=== PATIENT | female | born 1960 | race Caucasian/White ===

== ENCOUNTER 2021-03-06 11:08 | Emergency (ER) | payer MEDICARE, MEDICAID, SELFPAY ==
[2021-03-06 11:43] VITALS: BP 112/71; BP 130/60; PULSE 58; PULSE 62; RESP 16; TEMP 36.6; O2SAT 98; O2SAT 99; BMI 22.4
--- NOTE | 2021-03-06 12:46 | ED.SEIZURE ---
HPI - Seizure General Chief Complaint: Seizure Stated Complaint: SZ POST ICTAL FROM SNF Time Seen by Provider: 03/06/21 12:26 Source: patient, EMS and RN notes reviewed History of Present Illness HPI Narrative: Patient with a history of seizure disorder. She is currently on Keppra and gabapentin for this. She is currently residing and [facility] after recent hospitalization at [facility] or renal failure. She denies history of dialysis however. She states today she had a seizure which is similar to her prior seizure disorders. She states she typically has prolonged seizures from 10 minutes up to 60 minutes. Today she bit her tongue was incontinent of urine. Today seizure resolved after receiving Ativan and mom really followed by [facility] by EMS. She currently complains of headache, mild time pain, general body aches. She states this is the way she typically feels after seizure. She denies any other significant injury. She states she felt a seizure coming on admitted back to her bed with the rails up prior to the full tonic-clonic seizure starting. She does not remember the actual seizure. No other new complaints. She states she used to be on Depakote but they changed to Keppra during her recent hospitalization. Her last seizure was 2 weeks ago. She states she typically has 1-2 seizures per month Related Data Allergies Allergy/AdvReac Type Severity Reaction Status Date / Time acetaminophen [ACETAMINOPHEN] Allergy Unknown VOMIT Unverified 12/01/19 18:47 bupropion [From WELLBUTRIN] Allergy Unknown HALLUCINATI Unverified 12/01/19 18:47 ONS codeine [CODEINE] Allergy Unknown RASH Unverified 12/01/19 18:47 metronidazole [METRONIDAZOLE] Allergy Unknown UNKNOWN Unverified 12/01/19 18:47 oxycodone [OXYCODONE] Allergy Unknown RASH Unverified 12/01/19 18:47 sulfamethoxazole Allergy Unknown UNKNOWN Unverified 12/01/19 18:47 [SULFAMETHOXAZOLE] tramadol [TRAMADOL] Allergy Unknown UNKNOWN Unverified 12/01/19 18:47 Review of Systems Constitutional: Comments: No fevers or chills ENT: Comments: Headache typical for post seizure per patient. Positive tongue biting Cardiovascular: Comments: No chest pain Respiratory: Comments: No shortness of breath Gastrointestinal: Comments: Some nausea. No abdominal pain or vomiting Musculoskeletal: Comments: General muscle aches without focal injury per patient Integumentary/Breasts: Comments: No rash Neurologic: Comments: Seizure as mentioned [facility] Social History Social History Alcohol intake: never Patient Tobacco Use Status: Former Tobacco user Smoked in Last 30 Days: Yes Use of substances other than those prescribed or required for medical reasons: No Advance Directives: No Advance Directives Information Provided: No Physical Exam Vital Signs: Vital Signs: Last Vital Signs Temp 97.7 F 03/06/21 14:36 Pulse 50 03/06/21 14:36 Resp 16 03/06/21 14:36 BP 158/73 H 03/06/21 14:36 Pulse Ox 98 03/06/21 14:36 BMI result Body Mass Index 22.4 Const: Other: Awake and alert no acute distress. HENMT: Other: Abrasion right side of tongue. No significant laceration. No active bleeding. Normocephalic atraumatic otherwise Eyes: Other: Pupils equal round reactive to light. Extraocular muscles intact Neck: Other: No meningismus Resp: Other: Clear and equal bilaterally without wheezes rales or rhonchi Cardio: Other: Regular rate and rhythm without murmurs rubs or gallops GI: Other: Soft nontender nondistended normoactive bowel sounds Skin: Other: Warm pink and dry without rash Neuro: Other: Awake alert no acute distress. Nonfocal neuro exam Extrem: Other: No evidence of extremity injury Course Course Course Narrative: Patient with history of epilepsy with seizure today consistent with prior seizures. No evidence of status epilepticus. No evidence of significant injury. I do not think we need to do imaging today. She does have a recent history of renal failure. Will obtain labs and electrolytes and Keppra level. 4:57 p.m.. Patient is feeling better and has not had further seizure activity while here in the emergency department. Labs including electrolytes are unremarkable. Keppra level is still pending but will not impact care today. Stable for discharge home MDM - Seizure Lab Data Result diagrams: 03/06/21 15:16 03/06/21 15:16 Labs: Lab Results 03/06/21 03/06/21 Range/Units 15:16 15:16 WBC 7.5 (4.8-10.8) X10*3/uL RBC 3.28 L (4.20-5.50) X10*6/uL Hgb 10.6 L (12.0-16.0) g/dl Hct 31.0 L (37.0-47.0) % MCV 94.5 (80.0-98.0) fL MCH 32.3 (27.0-33.0) pg MCHC 34.2 (31.0-35.0) g/dl RDW 14.4 (11.0-16.0) % Plt Count TNP MPV Not Reportable Immature Gran % (Auto) 0.7 H (0.0-0.4) % Neut % (Auto) 43.6 L (45-73) % Lymph % (Auto) 40.9 H (20-40) % [place] % (Auto) 9.9 (2-11) % Eos % (Auto) 3.8 (0-4) % Baso % (Auto) 1.1 (0-2) % Lymph # (Auto) 3.1 (1.2-4.9) X10*3/uL [place] # (Auto) 0.7 (0.1-1.2) X10*3/uL Eos # (Auto) 0.3 (0.0-0.4) X10*3/uL Baso # (Auto) 0.1 (0.0-0.2) X10*3/uL Abs Immat Gran (auto) 0.05 H (0.00-0.03) X10*3/uL Absolute Neuts (auto) 3.3 (2.0-8.3) x10*3/uL Absolute Nucleated RBC 0.000 (0.0-0.012) X10*3/uL Nucleated RBC % (auto) 0.0 (0.0-0.2) /100WBC Smear Tech's Comments VERIFIED Sodium 139 (135-145) mmol/L Potassium 4.5 (3.3-5.1) mmol/L Chloride 107 (96-108) mmol/L Carbon Dioxide 26 (22-29) mmol/L Anion Gap 11 L (12-20) BUN 9 (9-16) mg/dL Creatinine 0.68 (0.5-1.4) mg/dL Estim Creat Clear Calc 60.7 Estimated GFR > 60 Random Glucose 73 (60-115) mg/dL Calcium 9.3 (8.4-10.2) mg/dL Total Bilirubin 0.4 (0.0-1.0) mg/dL AST 18 (5-31) U/L ALT 29 (0-31) U/L Alkaline Phosphatase 104 (39-117) U/L Total Creatine Kinase 50 (26-140) U/L Total Protein 6.2 L (6.5-8.0) g/dL Albumin 3.4 L (3.5-5.0) g/dL Discharge Plan Discharge Clinical Impression: Epileptic seizure Patient Disposition: Home, Self-Care Instructions: Epilepsy (ED) Additional Instructions: Your lab work here was normal today. Your Keppra level is still pending however. Follow-up with your neurologist for further recommendations
[2021-03-06] MEDS: 0.9 % Sodium Chloride 500 ML IV (13:39)
[2021-03-06 14:36] VITALS: BP 158/73; PULSE 50; RESP 16; TEMP 36.5; O2SAT 98
[2021-03-06 15:35] LABS: Eosinophils Absolute Auto 0.3 X10*3/uL (0.0-0.4); Hemoglobin 10.6 g/dl (12.0-16.0); PLT CLUMP 1; SCAN SMEAR FLAG 1
[2021-03-06 15:37] LABS: Basophils Absolute Auto 0.1 X10*3/uL (0.0-0.2); Basophils Percent Auto 1.1 % (0-2); Eosinophils Percent Auto 3.8 % (0-4); Imm Gran Abs Auto 0.05 X10*3/uL (0.00-0.03); Imm Gran Pct Auto 0.7 % (0.0-0.4); Lymphocytes Absolute Auto 3.1 X10*3/uL (1.2-4.9); Lymphocytes Percent Auto 40.9 % (20-40); MANUAL DIFF FLAG SCAN; Mean Corpuscular HGB Conc 34.2 g/dl (31.0-35.0); Mean Corpuscular Hemoglobin 32.3 pg (27.0-33.0); Mean Corpuscular Volume 94.5 fL (80.0-98.0); Monocytes Absolute Auto 0.7 X10*3/uL (0.1-1.2); Monocytes Percent Auto 9.9 % (2-11); Neutrophils Absolute Auto 3.3 x10*3/uL (2.0-8.3); Neutrophils Percent Auto 43.6 % (45-73); Red Blood Count 3.28 X10*6/uL (4.20-5.50); Red Cell Distribution Width 14.4 % (11.0-16.0)
[2021-03-06 15:41] LABS: Alanine Aminotransferase 29 U/L (0-31); Albumin Level 3.4 g/dL (3.5-5.0); Alkaline Phosphatase 104 U/L (39-117); Anion Gap 11 (12-20); Aspartate Amino Transferase 18 U/L (5-31); Bilirubin Total 0.4 mg/dL (0.0-1.0); Blood Urea Nitrogen 9 mg/dL (9-16); Calcium 9.3 mg/dL (8.4-10.2); Carbon Dioxide 26 mmol/L (22-29); Chloride 107 mmol/L (96-108); Creatinine Clr Calc Pharmacy 60.7; Estimated Glomerular Filt Rate > 60; Glucose Random 73 mg/dL (60-115); Potassium 4.5 mmol/L (3.3-5.1); Sodium 139 mmol/L (135-145); Total Protein 6.2 g/dL (6.5-8.0)
[2021-03-06 15:57] LABS: White Blood Count 7.5 X10*3/uL (4.8-10.8)
[2021-03-06 16:07] LABS: SLIDE REVIEW VERIFIED
[2021-03-06] MEDS: Ketorolac Tromethamine 30 MG/ML VIAL IVPUSH (17:39)
[2021-03-12 08:31] LABS: Levetiracetam Keppra 20.7 mcg/mL (12.0-46.0)
== END 2021-03-06 20:54 | disposition home or self-care (01) ==
PROVIDERS: Emergency Provider Emergency Medicine
DX: G40.909 Epilepsy, unspecified, not intractable, without status epilepticus (principal); Z87.891 Personal history of nicotine dependence; Z79.899 Other long term (current) drug therapy
CPT/HCPCS: 36415; 80053; 80177; 82550; 85025; 96361; 96374; 99284; J1885

== ENCOUNTER 2021-03-14 16:08 | Emergency (ER) | payer MEDICARE, MEDICAID, SELFPAY ==
--- NOTE | ~2021-03-14 | XR_ITS ---
EXAMINATION: XR CHEST CLINICAL INFORMATION: Seizure COMPARISON: None TECHNIQUE: Portable upright AP view of the chest was obtained. FINDINGS: The lungs are clear. There is no pneumothorax, airspace consolidation or groundglass opacity. No effusion. Heart size normal. Vascularity normal. The hilar and mediastinal contours and visualized bony structures are unremarkable. XR/XR chest 1V IMPRESSION: Unremarkable examination.
[2021-03-14 16:23] VITALS: BP 141/60; PULSE 92; RESP 14; O2SAT 97; BMI 19.5
--- NOTE | 2021-03-14 16:29 | ED.SEIZURE ---
HPI - Seizure General Chief Complaint: Seizure Stated Complaint: SEIZURE PER SNF Source: patient and EMS Mode of arrival: EMS Limitations: no limitations History of Present Illness HPI Narrative: 61-year-old female presents via EMS from a nursing home facility for seizure lasting 25 minutes. MD complaint: seizure Onset (ago): hour(s) Description of Episode: tonic-clonic movement and post-event confusion Duration of episode: 25 -: minutes(s) Witnessed: Yes - by Bystander Trauma: No Seizure [facility] Possible Precipitating Event: none Associated symptoms: denies other symptoms Treatments prior to arrival: benzodiazepines Related Data Previous Rx's Medication Instructions Recorded cefuroxime axetil 500 mg tablet 500 mg PO Q12H 7 Days #14 tab 03/14/21 Allergies Allergy/AdvReac Type Severity Reaction Status Date / Time acetaminophen [ACETAMINOPHEN] Allergy Unknown VOMIT Verified 03/06/21 18:55 bupropion [From WELLBUTRIN] Allergy Unknown HALLUCINATI Verified 03/06/21 18:55 ONS codeine [CODEINE] Allergy Unknown RASH Verified 03/06/21 18:55 metronidazole [METRONIDAZOLE] Allergy Unknown UNKNOWN Verified 03/06/21 18:55 oxycodone [OXYCODONE] Allergy Unknown RASH Verified 03/06/21 18:55 sulfamethoxazole Allergy Unknown UNKNOWN Verified 03/06/21 18:55 [SULFAMETHOXAZOLE] tramadol [TRAMADOL] Allergy Unknown UNKNOWN Verified 03/06/21 18:55 Review of Systems Review of Systems: Constitutional: Positive fatigue, No Fever, No Chills ENT/Mouth: No sore throat, No Rhinorrhea Eyes: No Eye Pain, No Swelling, No Redness Cardiovascular: No Chest Pain, No SOB Respiratory: No Cough, No Sputum Gastrointestinal: No Nausea, No Vomiting, No Diarrhea, No abdominal Pain Genitourinary: No Dysuria, No Hematuria Musculoskeletal: No joint pain, No Myalgias, No Joint Swelling Skin: No Skin Lesions, No rash Neuro: No Weakness, No Numbness, No Loss of Consciousness, No Dizziness, No Headache Psych: No Anxiety, No Depression, No SI/HI/AH/VH Heme/Lymph: No Bruising, No Bleeding,No Lymphadenopathy Endocrine: No Polyuria, No Polydipsia Yes all other systems are reviewed and are negative PMFSH Past Medical History Attestation statement: The following information was validated with the patient. Source: old records reviewed Social History Social History Alcohol intake: never Patient Tobacco Use Status: Former Tobacco user Use of substances other than those prescribed or required for medical reasons: No Advance Directives: No Advance Directives Information Provided: No Patient : No Physical Exam Vital Signs: Vital Signs: Last Vital Signs Temp 98.3 F 03/14/21 16:56 Pulse 66 03/14/21 19:58 Resp 16 03/14/21 16:56 BP 128/71 03/14/21 19:58 Pulse Ox 98 03/14/21 19:58 BMI result Body Mass Index 19.5 Appearance: Alert. Oriented X3. No acute distress. Appears tired. Eyes: Pupils equal, round and reactive to light. EOMI. Sclera nonicteric. ENT: Pharynx normal. Moist mucous membranes. No injury tongue or buccal mucosa Neck: Normal inspection. Neck supple. No nuchal rigidity. CVS: Normal heart rate and rhythm. Pulses normal. Respiratory: No respiratory distress. Breath sounds normal. Abdomen: Soft and nontender. Skin: Skin warm and dry. Normal skin color. Normal skin turgor. Extremities: No lower extremity edema. Moves all extremities against resistance. Neuro: No motor deficit. No sensory deficit. Cranial nerves 2-12 intact. Course Course Course Narrative: 61-year-old female from a [facility] presents via EMS for seizure lasting approximately 25 minutes. Patient was given Ativan by EMS, when patient stated to EMS that she was having a seizure. At this time there is no evidence of status epilepticus. No evidence of injury. Physical exam is within normal limits. Lab values and urinalysis pending. Patient does have a history presenting for seizure disorder, last presentation was 03/06/2021. She is on Keppra, however I do not feel that obtaining Keppra lab values will be beneficial at this time as this lab is a send out. 6:11 p.m. patient is requesting p.o. fluids and food. Patient is able to speak in complete sentences, no indication of adverse from seizure. Urinalysis indicates leukocyte esterase. Will treat with cefuroxime 500 mg twice a day for the next 7 days. Patient will be discharged to nursing home facility. Patient is eating and drinking without difficulty. MDM - Seizure MDM Narrative Medical decision making narrative: UTI Differential Diagnosis Differential diagnosis: Likely generalized seizure and epileptic seizure Medical Records Attestation: I reviewed the patient's medical records. Lab Data Attestation: I reviewed the patient's lab results. Result diagrams: 03/14/21 16:46 03/14/21 16:46 Labs: Lab Results 03/14/21 03/14/21 03/14/21 Range/Units 16:46 16:46 17:02 WBC 7.9 (4.8-10.8) X10*3/uL RBC 3.54 L (4.20-5.50) X10*6/uL Hgb 11.5 L (12.0-16.0) g/dl Hct 33.9 L (37.0-47.0) % MCV 95.8 (80.0-98.0) fL MCH 32.5 (27.0-33.0) pg MCHC 33.9 (31.0-35.0) g/dl RDW 13.7 (11.0-16.0) % Plt Count TNP MPV Not Reportable Immature Gran % (Auto) 0.6 H (0.0-0.4) % Neut % (Auto) 48.9 (45-73) % Lymph % (Auto) 35.2 (20-40) % [place] % (Auto) 11.4 H (2-11) % Eos % (Auto) 2.8 (0-4) % Baso % (Auto) 1.1 (0-2) % Lymph # (Auto) 2.8 (1.2-4.9) X10*3/uL [place] # (Auto) 0.9 (0.1-1.2) X10*3/uL Eos # (Auto) 0.2 (0.0-0.4) X10*3/uL Baso # (Auto) 0.1 (0.0-0.2) X10*3/uL Abs Immat Gran (auto) 0.05 H (0.00-0.03) X10*3/uL Absolute Neuts (auto) 3.8 (2.0-8.3) x10*3/uL Absolute Nucleated RBC 0.000 (0.0-0.012) X10*3/uL Nucleated RBC % (auto) 0.0 (0.0-0.2) /100WBC Smear Tech's Comments VERIFIED Sodium 137 (135-145) mmol/L Potassium 4.9 (3.3-5.1) mmol/L Chloride 103 (96-108) mmol/L Carbon Dioxide 29 (22-29) mmol/L Anion Gap 10 L (12-20) BUN 21 H D (9-16) mg/dL Creatinine 0.78 (0.5-1.4) mg/dL Estim Creat Clear Calc 55.6 Estimated GFR > 60 Random Glucose 95 (60-115) mg/dL Calcium 9.3 (8.4-10.2) mg/dL Urine Color YELLOW Urine Appearance CLEAR Urine pH 7.0 (5.0-8.0) Ur Specific [place] <= 1.005 (1.005-1.025) Urine Protein NEG (NEG-TRACE) MG/DL Urine Glucose (UA) NEG (NEG) MG/DL Urine Ketones NEG (NEG) MG/DL Urine Blood NEG (NEG) Urine Nitrite NEG (NEG) Ur Leukocyte Esterase 1+ H (NEG) Urine RBC 0-2 (0) /HPF Urine WBC 0-2 (0-4) /HPF Ur Squamous Epith Cells TRACE /LPF Ur Renal Epithelial Cell 1+ /LPF Urine Bacteria NONE /LPF Imaging Data Chest x-ray: Attestation: I personally reviewed and interpreted this imaging study as follows: Radiologist's impression: EXAMINATION: XR CHEST CLINICAL INFORMATION: Seizure COMPARISON: None TECHNIQUE: Portable upright AP view of the chest was obtained. FINDINGS: The lungs are clear. There is no pneumothorax, airspace consolidation or groundglass opacity. No effusion. Heart size normal. Vascularity normal. The hilar and mediastinal contours and visualized bony structures are unremarkable. XR/XR chest 1V IMPRESSION: Unremarkable examination. ? Discharge Plan Discharge Clinical Impression: Epileptic seizure, UTI (urinary tract infection) Patient Disposition: Xfer [facility] Transfer Details: BACK TO [facility] WITH [facility] Instructions: Recurrent Seizures in Adults (ED), Urinary Tract Infection in Older Adults (ED) Additional Instructions: You were evaluated for seizure. Please continue to take all medications as prescribed. Urinalysis indicates UTI. Please take cefuroxime 500 mg twice a day for the next 7 days. Please repeat urinalysis in 10 days. Thank you for choosing this emergency department for evaluation. Please follow-up with primary care physician as needed. Return to the emergency department for any new, concerning, or worsening symptoms. Prescriptions: New cefuroxime axetil 500 mg tablet 500 mg PO Q12H 7 Days Qty: 14 RF: 0 Interventions: ED Discharge Assessment Last Done: 03/14/21 20:11 Discharge Date/Time: 03/14/21 20:12
[2021-03-14 16:51] LABS: PLT CLUMP 1; SCAN SMEAR FLAG 1
[2021-03-14 16:56] VITALS: BP 123/77; PULSE 60; RESP 16; TEMP 36.8; O2SAT 98
[2021-03-14 16:57] LABS: Basophils Absolute Auto 0.1 X10*3/uL (0.0-0.2); Basophils Percent Auto 1.1 % (0-2); Hemoglobin 11.5 g/dl (12.0-16.0); Mean Corpuscular Volume 95.8 fL (80.0-98.0); Monocytes Percent Auto 11.4 % (2-11); Red Cell Distribution Width 13.7 % (11.0-16.0)
[2021-03-14 16:59] LABS: Eosinophils Absolute Auto 0.2 X10*3/uL (0.0-0.4); Eosinophils Percent Auto 2.8 % (0-4); Hematocrit 33.9 % (37.0-47.0); Imm Gran Abs Auto 0.05 X10*3/uL (0.00-0.03); Imm Gran Pct Auto 0.6 % (0.0-0.4); Lymphocytes Absolute Auto 2.8 X10*3/uL (1.2-4.9); Lymphocytes Percent Auto 35.2 % (20-40); MANUAL DIFF FLAG SCAN; Mean Corpuscular HGB Conc 33.9 g/dl (31.0-35.0); Mean Corpuscular Hemoglobin 32.5 pg (27.0-33.0); Monocytes Absolute Auto 0.9 X10*3/uL (0.1-1.2); Neutrophils Absolute Auto 3.8 x10*3/uL (2.0-8.3); Neutrophils Percent Auto 48.9 % (45-73); Red Blood Count 3.54 X10*6/uL (4.20-5.50)
[2021-03-14 17:11] LABS: Appearance Urine CLEAR; Color Urine YELLOW; Glucose Urine UA NEG (NEG); Leukocyte Esterase Urine 1+ (NEG); Nitrite Urine NEG (NEG); Specific Gravity - Urine <= 1.005 (1.005-1.025); UACC Culture Trigger YES; Urine Blood NEG (NEG); Urine Ketones NEG (NEG); Urine Protein NEG (NEG-TRACE)
[2021-03-14 17:15] LABS: Anion Gap 10 (12-20); Blood Urea Nitrogen 21 mg/dL (9-16); Calcium 9.3 mg/dL (8.4-10.2); Carbon Dioxide 29 mmol/L (22-29); Chloride 103 mmol/L (96-108); Creatinine Clr Calc Pharmacy 55.6; Estimated Glomerular Filt Rate > 60; Glucose Random 95 mg/dL (60-115); Potassium 4.9 mmol/L (3.3-5.1); Sodium 137 mmol/L (135-145); White Blood Count 7.9 X10*3/uL (4.8-10.8)
[2021-03-14 17:16] LABS: SLIDE REVIEW VERIFIED
[2021-03-14 18:27] LABS: RBC Urine 0-2 /HPF (0); Renal Epithelial Cells Urine 1+ /LPF; Squamous Epithelial Cell Urine TRACE /LPF; WBC Urine 0-2 /HPF (0-4)
[2021-03-14 19:58] VITALS: BP 128/71; PULSE 66; O2SAT 98
--- NOTE | 2021-03-14 20:08 | PC.NURSE ---
Called facility several time in attempt to give report, was transferred the first time no answer on hold for over 5mins. Report give on second call.
== END 2021-03-14 20:12 | disposition skilled nursing facility (03) ==
PROVIDERS: Nurse Practitioner Family; Emergency Provider Emergency Medicine Emergency Medical Services
DX: G40.909 Epilepsy, unspecified, not intractable, without status epilepticus (principal); N39.0 Urinary tract infection, site not specified; Z87.891 Personal history of nicotine dependence; Z79.899 Other long term (current) drug therapy
CPT/HCPCS: 36415; 71045; 80048; 81001; 85025; 87086; 99284

== ENCOUNTER 2021-03-30 12:45 | Emergency (ER) | payer OTHER, MEDICAID, SELFPAY ==
--- NOTE | ~2021-03-30 | CT_ITS ---
EXAMINATION: CT HEAD WITHOUT CONTRAST CLINICAL INFORMATION: Headache and seizure. COMPARISON: None TECHNIQUE: Contiguous axial imaging was performed from the skull base to vertex without intravenous administration of contrast. This CT examination was performed using dose optimization techniques as appropriate, variously including the following: *Automated exposure control *Adjustment of mA and/or kV according to patient size (this includes techniques or standardized protocols for targeted exams where dose is matched to indication/reason for exam; i.e. extremities or head) *Use of iterative reconstruction technique DLP: 634 mGy-cm FINDINGS: There is no acute intra-axial, extra-axial bleed, masses or midline shift. There is no acute infarction evolution. No edema. No abnormal mass effect or midline shift is seen. Smalls to white matter differentiation is well preserved. No extra-axial fluid collections are identified. The ventricles are normal in size. There is no abnormal attenuation within the brain parenchyma. The osseous structures and soft tissues are normal. There is right maxillary sinus air-fluid level. There is mucoperiosteal thickening left frontal sinus. CT/CT head/brain wo con IMPRESSION: No acute intracranial process seen. Acute right maxillary sinusitis. Chronic left frontal sinus inflammatory changes.
--- NOTE | 2021-03-30 12:51 | ED.GENADULT ---
HPI - General Adult General Chief complaint: Seizure Stated complaint: SZ ACTIVITY FROM SNF PER EMS Time Seen by Provider: 03/30/21 12:50 Source: patient and EMS Mode of arrival: EMS Limitations: no limitations History of Present Illness HPI narrative: 61-year-old female coming from a care home facility who has a history of seizures, was called due to staff having concern for patient having seizure. Patient was given 0.5 IM Ativan by nursing staff. Patient has had mild shaking of her upper arms, when EMS told her to stop, she stopped shaking. Staff at [facility] state that 2 weeks ago patient had another seizure. Patient is alert and oriented at this time, she knows her name, where she is, and what day it is. States she has a headache. States she started shaking uncontrollably with her teeth chattering inner arm shaking. Denies urinary or bowel incontinence, denies tongue or cheek biting. On review of systems, patient states that she has had 3 days of dysuria and urinary frequency ' I did call [facility] and spoke with staff, who say that patient had a headache and was given 0.5 IM Ativan, then started with seizure-like activity at 11:45 a.m., and after she had shaking of her arms she was unresponsive for about 15 minutes, so they called EMS. Patient does not normally have tremors and shaking of her upper arms at baseline Related Data Previous Rx's Medication Instructions Recorded cefuroxime axetil 500 mg tablet 500 mg PO Q12H 7 Days #14 tab 03/14/21 doxycycline hyclate 100 mg capsule 100 mg PO BID 10 Days #20 cap 03/30/21 Allergies Allergy/AdvReac Type Severity Reaction Status Date / Time acetaminophen [ACETAMINOPHEN] Allergy Unknown VOMIT Verified 03/06/21 18:55 bupropion [From WELLBUTRIN] Allergy Unknown HALLUCINATI Verified 03/06/21 18:55 ONS codeine [CODEINE] Allergy Unknown RASH Verified 03/06/21 18:55 metronidazole [METRONIDAZOLE] Allergy Unknown UNKNOWN Verified 03/06/21 18:55 oxycodone [OXYCODONE] Allergy Unknown RASH Verified 03/06/21 18:55 sulfamethoxazole Allergy Unknown UNKNOWN Verified 03/06/21 18:55 [SULFAMETHOXAZOLE] tramadol [TRAMADOL] Allergy Unknown UNKNOWN Verified 03/06/21 18:55 Review of Systems Constitutional: Constitutional: Denies body ache(s), Denies chills, Denies fatigue, Denies fever(s), Reports headache(s), Denies malaise and Denies weakness Eyes: Eyes: Denies diplopia and Denies loss of vision ENT: Denies dizziness, Denies otalgia, Reports headache(s), Denies post nasal drip and Denies sore throat Cardiovascular: Cardiovascular: Denies chest pain, Denies syncope, Denies leg edema, Denies lightheadedness, Denies Loss of Consciousness, Denies palpitations and Denies dyspnea Respiratory: Respiratory: Denies chest congestion, Denies cough and Denies dyspnea Gastrointestinal: Gastrointestinal: Denies abdominal pain, Denies hematochezia, Denies constipation, Denies diarrhea, Denies nausea and Denies vomiting Genitourinary: Genitourinary: Denies hematuria, Reports dysuria, Denies pelvic pain, Reports urinary urgency and Denies vaginal discharge Musculoskeletal: Musculoskeletal: Reports myalgias Neurologic: Reports Abnormal speech present, Denies confusion, Denies dizziness, Denies syncope, Reports headache(s), Denies focal weakness, Denies loss of vision, Reports seizure-like activity, Denies Sensory deficit (Neuro) and Denies weakness Psychiatric: Psychiatric: Denies anxiety, Denies confusion and Denies depression Endocrine: Endocrine: Denies fatigue and Denies palpitations [facility] Past Medical History [facility] Narrative: Medical history includes epilepsy, acute kidney injury, COPD, asthma, anemia, muscle wasting, malnutrition, depression anxiety, dysphagia, GERD Surgical History S/P bilateral foot surgery Social History Social History Alcohol intake: never Patient Tobacco Use Status: Former Tobacco user Advance Directives: No Advance Directives Information Provided: Yes Physical Exam Vital Signs: Vital Signs: Last Vital Signs Temp 98.4 F 03/30/21 16:10 Pulse 82 03/30/21 16:10 Resp 16 03/30/21 16:10 BP 126/76 03/30/21 16:10 Pulse Ox 99 03/30/21 16:10 BMI result Body Mass Index 24.5 Const: General: alert and awake; No confusion Nutritional Appearance: cachectic Orientation/consciousness: patient oriented x3 and No confusion Limitations: no limitations and No altered mental status HENMT: Head: Yes normal to inspection, Yes normocephalic and Yes atraumatic Ears: hearing grossly normal bilaterally, external ears normal, TM's normal bilaterally and EAC's normal General nose exam: Normal external nose present Face and sinus: Yes normal facial exam and Yes sinuses nontender Mouth: Normal oral and palatal mucosa present Throat: Yes posterior oropharynx normal Eyes: Conjunctivae: conjunctivae normal Pupils: Equal, round and reactive pupils present EOM: EOMs intact bilaterally Neck: Neck: Yes full ROM, Yes no lymphadenopathy and Yes supple Resp: Effort & Inspection: normal respiratory effort and able to speak in complete sentences Auscultation: clear to auscultation bilaterally, no crackles, no rales, no rhonchi and no wheezes Cardio: Rate: regular rate Rhythm: regular rhythm Heart sounds: S1 normal heart sound present and S2 normal heart sound present GI: Inspection: Yes normal to inspection Palpation (GI): Soft to palpation, Tenderness to palpation present (GI) (suprapubic), no guarding and not rigid Percussion: Yes normal to percussion Auscultation: normal bowel sounds : General: Yes CVA tenderness on the left Back/Spine/Pelvis: Back: CVA tenderness Skin: General skin exam: no rashes or lesions noted Neuro: General: patient oriented x3 and No confusion Cranial nerves: Yes CN's II-XII intact bilaterally, Yes Facial sensation intact/muscles of mastication intact, Yes Equal, round and reactive pupils present, Yes Normal accommodation reflex present, Yes Bilaterally intact EOM present, Yes Nystagmus not present, Yes Normal facial strength present, Yes Ability to bilaterally rotate head present and Yes Ability to bilaterally elevate shoulders present Cognition (Neuro): normal cognition Speech: Abnormal speech present Gait exam (Neuro): Normal gait present Motor exam (neuro): 5/5 motor strength present throughout and Pronator motor function not present Sensory Exam: No Sensory deficit (Neuro) Deep tendon reflexes (DTR's): Right patellar reflex intensity grade: 1+ and Left patellar reflex intensity grade: 1+ Romberg Test: Negative Pupils: Normal pupillary reactivity/response: bilateral Extrem: General: Yes normal to inspection and Yes full ROM Psych: Appearance: grossly normal Mental Status: mental status grossly normal Speech and movement: Normal speech and movement present Affect: normal affect Attitude: cooperative Course Course Course Narrative: 61-year-old female who is afebrile with stable vitals presents for seizure-like activity from her care home home. Staff there states patient had shaking and seizure-like activity, followed by about 15 minutes of unresponsiveness. On exam, patient is stable vitals, has shaking of her upper arms, but is able to follow commands, is alert and oriented x3, and has a benign neurological exam. Will get urine, Keppra level, labs, COVID, head CT. Reevaluation(s) Reevaluation #1: Under exam, patient is sleeping comfortably, her shaking has stopped POC BG 94 Will give 500 keppra IV, as pt got Keppra dose this am Patient able to ambulate to bathroom Reevaluation #2: CT/CT head/brain wo con IMPRESSION: No acute intracranial process seen. ? Acute right maxillary sinusitis. Chronic left frontal sinus inflammatory changes. Patient has a negative urine, COVID negative, CBC is unremarkable, blood glucose point of care is 94, EKG shows no acute ischemia, head CT shows sinusitis. Awaiting chemistry; called lab; they said CMP was hemolyzed, and needs a re-draw chemistry within normal limits Will treat with Doxy, and discharge back to SNF Medical Decision Making Lab Data Result diagrams: 03/30/21 13:17 03/30/21 15:01 Labs: Lab Results 03/30/21 03/30/21 03/30/21 Range/Units 13:13 13:17 13:17 WBC 9.0 (4.8-10.8) X10*3/uL RBC 3.74 L (4.20-5.50) X10*6/uL Hgb 11.9 L (12.0-16.0) g/dl Hct 35.9 L (37.0-47.0) % MCV 96.0 (80.0-98.0) fL MCH 31.8 (27.0-33.0) pg MCHC 33.1 (31.0-35.0) g/dl RDW 12.7 (11.0-16.0) % Plt Count TNP MPV TNP Immature Gran % (Auto) 0.8 H (0.0-0.4) % Neut % (Auto) 52.4 (45-73) % Lymph % (Auto) 30.5 (20-40) % Mcminn % (Auto) 13.5 H (2-11) % Eos % (Auto) 1.9 (0-4) % Baso % (Auto) 0.9 (0-2) % Lymph # (Auto) 2.8 (1.2-4.9) X10*3/uL Mcminn # (Auto) 1.2 (0.1-1.2) X10*3/uL Eos # (Auto) 0.2 (0.0-0.4) X10*3/uL Baso # (Auto) 0.1 (0.0-0.2) X10*3/uL Abs Immat Gran (auto) 0.07 H (0.00-0.03) X10*3/uL Absolute Neuts (auto) 4.7 (2.0-8.3) x10*3/uL Absolute Nucleated RBC 0.000 (0.0-0.012) X10*3/uL Nucleated RBC % (auto) 0.0 (0.0-0.2) /100WBC Smear Tech's Comments VERIFIED Sodium (135-145) mmol/L Potassium (3.3-5.1) mmol/L Chloride (96-108) mmol/L Carbon Dioxide (22-29) mmol/L Anion Gap (12-20) BUN (9-16) mg/dL Creatinine (0.5-1.4) mg/dL Estim Creat Clear Calc Estimated GFR POC Glucose 94 (60-115) mg/dL Random Glucose (60-115) mg/dL Calcium (8.4-10.2) mg/dL Total Bilirubin (0.0-1.0) mg/dL AST (5-31) U/L ALT (0-31) U/L Alkaline Phosphatase (39-117) U/L Total Protein (6.5-8.0) g/dL Albumin (3.5-5.0) g/dL Urine Color Urine Appearance Urine pH (5.0-8.0) Ur Specific Sargent (1.005-1.025) Urine Protein (NEG-TRACE) MG/DL Urine Glucose (UA) (NEG) MG/DL Urine Ketones (NEG) MG/DL Urine Blood (NEG) Urine Nitrite (NEG) Ur Leukocyte Esterase (NEG) Urine RBC (0) /HPF Urine WBC (0-4) /HPF Ur Squamous Epith Cells /LPF Urine Bacteria /LPF COVID-19 (EMILI) Negative (Negative) COVID-19 Clin Com See Note 03/30/21 03/30/21 Range/Units 13:55 15:01 WBC (4.8-10.8) X10*3/uL RBC (4.20-5.50) X10*6/uL Hgb (12.0-16.0) g/dl Hct (37.0-47.0) % MCV (80.0-98.0) fL MCH (27.0-33.0) pg MCHC (31.0-35.0) g/dl RDW (11.0-16.0) % Plt Count MPV Immature Gran % (Auto) (0.0-0.4) % Neut % (Auto) (45-73) % Lymph % (Auto) (20-40) % Mcminn % (Auto) (2-11) % Eos % (Auto) (0-4) % Baso % (Auto) (0-2) % Lymph # (Auto) (1.2-4.9) X10*3/uL Mcminn # (Auto) (0.1-1.2) X10*3/uL Eos # (Auto) (0.0-0.4) X10*3/uL Baso # (Auto) (0.0-0.2) X10*3/uL Abs Immat Gran (auto) (0.00-0.03) X10*3/uL Absolute Neuts (auto) (2.0-8.3) x10*3/uL Absolute Nucleated RBC (0.0-0.012) X10*3/uL Nucleated RBC % (auto) (0.0-0.2) /100WBC Smear Tech's Comments Sodium 139 (135-145) mmol/L Potassium 4.3 (3.3-5.1) mmol/L Chloride 105 (96-108) mmol/L Carbon Dioxide 25 (22-29) mmol/L Anion Gap 13 (12-20) BUN 18 H (9-16) mg/dL Creatinine 0.75 (0.5-1.4) mg/dL Estim Creat Clear Calc 61.1 Estimated GFR > 60 POC Glucose (60-115) mg/dL Random Glucose 96 (60-115) mg/dL Calcium 9.1 (8.4-10.2) mg/dL Total Bilirubin 0.2 (0.0-1.0) mg/dL AST 15 (5-31) U/L ALT 14 (0-31) U/L Alkaline Phosphatase 100 (39-117) U/L Total Protein 6.1 L (6.5-8.0) g/dL Albumin 3.4 L (3.5-5.0) g/dL Urine Color YELLOW Urine Appearance CLEAR Urine pH 6.5 (5.0-8.0) Ur Specific Sargent <= 1.005 (1.005-1.025) Urine Protein NEG (NEG-TRACE) MG/DL Urine Glucose (UA) NEG (NEG) MG/DL Urine Ketones NEG (NEG) MG/DL Urine Blood NEG (NEG) Urine Nitrite NEG (NEG) Ur Leukocyte Esterase NEG (NEG) Urine RBC 0 (0) /HPF Urine WBC 0 (0-4) /HPF Ur Squamous Epith Cells TRACE /LPF Urine Bacteria NONE /LPF COVID-19 (EMILI) (Negative) COVID-19 Clin Com ECG Data Interpretation: Sinus bradycardia at a rate of 59, SC 132, QRS 88, QTC 433, normal axis, no ST elevation or depression, T-wave inversion V3 V4, T-wave inversion lead 3 No old EKG for comparison Discharge Plan Discharge Clinical Impression: Acute bacterial sinusitis Epileptic seizure Qualifiers: Epilepsy type: epileptic spasms Intractability: not intractable Status epilepticus: without status epilepticus Qualified Code(s): G40.822 - Epileptic spasms, not intractable, without status epilepticus Patient Disposition: Home, Self-Care Instructions: Sinusitis (ED), Epilepsy in Older Adults (ED) Additional Instructions: You have a sinus infection. I have prescribed doxycycline to your pharmacy. Please take it IR twice a day for the next 10 days. You had a seizure. All of your labs and your head CT and your EKG were within normal limits. Your Keppra level was sent out, and those results will return in the next 2-3 days. If you do not receive a call that the level is abnormal, continue with your regular medications. If you have more seizure-like activity, chest pain, shortness of breath, abdominal pain, fevers, or any other new or concerning symptoms, please return to emergency Prescriptions: New doxycycline hyclate 100 mg capsule 100 mg PO BID 10 Days Qty: 20 RF: 0 No Action cefuroxime axetil 500 mg tablet 500 mg PO Q12H 7 Days Qty: 14 RF: 0
[2021-03-30 12:57] VITALS: BP 132/79; PULSE 66; RESP 16; TEMP 36.2; O2SAT 99; BMI 24.5
[2021-03-30 13:17] LABS: Glucose, Whole Blood 94 mg/dL (60-115)
--- NOTE | 2021-03-30 13:25 | ECG_ITS ---
Test Reason : seizure Blood Pressure : / mmHG Vent. Rate : 059 BPM Atrial Rate : 059 BPM P-R Int : 132 ms QRS Dur : 088 ms QT Int : 438 ms P-R-T Axes : 063 071 -08 degrees QTc Int : 433 ms Sinus bradycardia Nonspecific T wave abnormality Abnormal ECG No previous ECGs available Referred By: Anastasiia Mariscal Electronically Signed By:ROSAMARIA KNOWLES
[2021-03-30] MEDS: 0.9 % Sodium Chloride 1,000 ML 999 ML IV (13:36)
[2021-03-30 13:50] LABS: Basophils Absolute Auto 0.1 X10*3/uL (0.0-0.2); Basophils Percent Auto 0.9 % (0-2); Eosinophils Absolute Auto 0.2 X10*3/uL (0.0-0.4); Eosinophils Percent Auto 1.9 % (0-4); Hematocrit 35.9 % (37.0-47.0); Hemoglobin 11.9 g/dl (12.0-16.0); Imm Gran Abs Auto 0.07 X10*3/uL (0.00-0.03); Imm Gran Pct Auto 0.8 % (0.0-0.4); Lymphocytes Absolute Auto 2.8 X10*3/uL (1.2-4.9); Lymphocytes Percent Auto 30.5 % (20-40); MANUAL DIFF FLAG SCAN; Mean Corpuscular HGB Conc 33.1 g/dl (31.0-35.0); Mean Corpuscular Hemoglobin 31.8 pg (27.0-33.0); Monocytes Absolute Auto 1.2 X10*3/uL (0.1-1.2); Monocytes Percent Auto 13.5 % (2-11); Neutrophils Absolute Auto 4.7 x10*3/uL (2.0-8.3); Neutrophils Percent Auto 52.4 % (45-73); PLT CLUMP 1; Red Blood Count 3.74 X10*6/uL (4.20-5.50); Red Cell Distribution Width 12.7 % (11.0-16.0); SCAN SMEAR FLAG 1
[2021-03-30 13:55] LABS: COVID-19 Test Negative (Negative)
[2021-03-30 14:16] LABS: SLIDE REVIEW VERIFIED
--- NOTE | 2021-03-30 14:24 | PC.NURSE ---
Pt's daughter Deyanira: [phone]
[2021-03-30 14:27] LABS: Appearance Urine CLEAR; Color Urine YELLOW; Glucose Urine UA NEG (NEG); Leukocyte Esterase Urine NEG (NEG); Nitrite Urine NEG (NEG); PH 6.5 (5.0-8.0); Specific Gravity - Urine <= 1.005 (1.005-1.025); Urine Blood NEG (NEG); Urine Ketones NEG (NEG); Urine Protein NEG (NEG-TRACE)
[2021-03-30 14:44] LABS: RBC Urine 0 /HPF (0); Squamous Epithelial Cell Urine TRACE /LPF; WBC Urine 0 /HPF (0-4)
[2021-03-30] MEDS: levETIRAcetam in NaCl (iso-os) 500 MG/100 ML PIGGYBACK 400 MG IV (14:55)
[2021-03-30 15:51] LABS: Alanine Aminotransferase 14 U/L (0-31); Albumin Level 3.4 g/dL (3.5-5.0); Alkaline Phosphatase 100 U/L (39-117); Anion Gap 13 (12-20); Aspartate Amino Transferase 15 U/L (5-31); Bilirubin Total 0.2 mg/dL (0.0-1.0); Blood Urea Nitrogen 18 mg/dL (9-16); Calcium 9.1 mg/dL (8.4-10.2); Carbon Dioxide 25 mmol/L (22-29); Chloride 105 mmol/L (96-108); Creatinine Clr Calc Pharmacy 61.1; Estimated Glomerular Filt Rate > 60; Glucose Random 96 mg/dL (60-115); Potassium 4.3 mmol/L (3.3-5.1); Sodium 139 mmol/L (135-145); Total Protein 6.1 g/dL (6.5-8.0)
[2021-03-30 16:10] VITALS: BP 126/76; PULSE 82; RESP 16; TEMP 36.9; O2SAT 99
[2021-03-30 17:28] LABS: Glucose, Whole Blood 130 mg/dL (60-115)
--- NOTE | 2021-03-30 17:32 | PC.NURSE ---
Pt D/C from ER. Pending transport back to nursing facility with filler picker time around [id number]. RN will continue to monitor.
--- NOTE | 2021-03-30 18:20 | PC.NURSE ---
Pt received dinner tray at this time, prior to D/C. Still pending EMS transport at this time.
[2021-03-30 19:16] VITALS: BP 130/72; PULSE 64; RESP 16; TEMP 36.6; O2SAT 97
--- NOTE | 2021-03-30 19:16 | PC.NURSE ---
patient ate 100 % of dinner .
[2021-03-30 20:00] VITALS: RESP 18
--- NOTE | 2021-03-30 21:01 | PC.NURSE ---
patient has been a&ox3 and ambulating to bathroom independently, patient is awaiting ride back to facility via ems, will continue to monitor.
[2021-03-30 22:08] VITALS: BP 157/94; PULSE 82; RESP 16; TEMP 36.4; O2SAT 99
--- NOTE | 2021-03-30 22:52 | PC.NURSE ---
MULTIPLE CALLS PLACED TO ACTION FOR UPDATE ON TRANSPORT BACK TO FACILITY. LATEST UPDATE IS BETWEEN .
[2021-03-31] MEDS: cloNIDine HCL 0.2 MG TABLET PO (00:22)
[2021-03-31] MEDS: hydrOXYzine HCL 50 MG TABLET PO (00:22)
[2021-03-31] MEDS: Gabapentin 600 MG TABLET PO (00:23)
[2021-03-31] MEDS: levETIRAcetam 500 MG TABLET PO (00:23)
[2021-04-03 22:57] LABS: Levetiracetam Keppra 23.6 mcg/mL (12.0-46.0)
== END 2021-03-31 01:44 | disposition skilled nursing facility (03) ==
PROVIDERS: Physician Assistant; Emergency Provider Emergency Medicine
DX: J01.80 Other acute sinusitis (principal); G40.822 Epileptic spasms, not intractable, without status epilepticus; Z20.822 Contact with and (suspected) exposure to COVID-19
CPT/HCPCS: 36415; 70450; 80053; 80177; 81001; 82947; 85025; 87635; 93005; 96361; 96365; 99284; J1953

== ENCOUNTER → 2022-01-14 10:55 | Outpatient (BNVA) | payer MEDICARE, MEDICAID, SELFPAY | PROVIDERS: PCP Internal Medicine; Visit Provider Nurse Practitioner Family | DX: R56.9 Unspecified convulsions (principal); G25.0 Essential tremor | CPT/HCPCS: 99212 ==

== ENCOUNTER → 2022-09-15 08:49 | Outpatient (BNVA) | payer MEDICARE, MEDICAID, SELFPAY | PROVIDERS: PCP Internal Medicine; Visit Provider Nurse Practitioner Family | DX: G25.81 Restless legs syndrome (principal); G47.33 Obstructive sleep apnea (adult) (pediatric) | CPT/HCPCS: 99212 ==

== ENCOUNTER → 2022-10-23 08:43 | Outpatient (REF) | payer MEDICARE, MEDICAID, SELFPAY | LOC: HO.SL 08:43 | PROVIDERS: PCP Internal Medicine; Visit Provider Nurse Practitioner Family | DX: G47.33 Obstructive sleep apnea (adult) (pediatric) (principal); G25.81 Restless legs syndrome | CPT/HCPCS: 95806 ==

== ENCOUNTER → 2022-10-23 09:07 | Outpatient (BNV) | payer MEDICARE, MEDICAID, SELFPAY | PROVIDERS: PCP Internal Medicine; Visit Provider Psychiatry & Neurology Neurology | DX: R06.83 Snoring (principal) | CPT/HCPCS: 95806 ==

== ENCOUNTER 2022-11-07 10:50 | Outpatient (AMB) | payer MEDICARE, MEDICAID, SELFPAY ==
--- NOTE | 2022-11-07 11:31 | A.OFFVIS_ITS ---
Intake Vital Signs 11/07/22 11:32 Height 4 ft 11 in Weight 132 lb BMI 26.7 Intake Visit Reasons: f/u appt Intake Note: Patient presents for follow up. Patient states I had a seizure episode Thursday and Thursday, I bit my lip during the seizure . Allergies guaifenesin [From Mucinex] Allergy (Intermediate, Verified 11/07/22 11:35) Vomiting acetaminophen [ACETAMINOPHEN] Allergy (Unknown, Verified 11/07/22 11:35) VOMIT bupropion [From WELLBUTRIN] Allergy (Unknown, Verified 11/07/22 11:35) HALLUCINATIONS codeine [CODEINE] Allergy (Unknown, Verified 11/07/22 11:35) RASH metronidazole [METRONIDAZOLE] Allergy (Unknown, Verified 11/07/22 11:35) UNKNOWN oxycodone [OXYCODONE] Allergy (Unknown, Verified 11/07/22 11:35) RASH sulfamethoxazole [SULFAMETHOXAZOLE] Allergy (Unknown, Verified 11/07/22 11:35) UNKNOWN tramadol [TRAMADOL] Allergy (Unknown, Verified 11/07/22 11:35) UNKNOWN Medication List - Last Reconciled 11/07/22 by SRIDHAR Quinonez apixaban (Eliquis) 5 mg PO BID ascorbic acid (vitamin C) 250 mg PO DAILY 30 days cholecalciferol (vitamin D3) 1 cap PO DAILY clonidine HCl 1 tab PO BEDTIME escitalopram oxalate 1 tab PO DAILY ferrous sulfate 324 mg PO DAILY 30 days [id number]-[id number]-gutjzbkh 200-62.5-25 mcg (Trelegy Ellipta) 1 inh inhalation DAILY gabapentin 600 mg PO BID 28 days gabapentin 300 mg PO DAILY 30 days hydroxyzine HCl 1 tab PO DAILY hydroxyzine HCl 1 tab PO BEDTIME levetiracetam 750 mg PO Q12H 28 days lorazepam 1 tab PO DAILY PRN melatonin 10 mg PO BEDTIME PRN 30 days montelukast 1 tab PO DAILY olanzapine 1 tab PO BEDTIME primidone 150 mg (3 x 50 mg) PO TID 30 days propranolol 10 mg PO TID umeclidinium 62.5 mcg/actuation (Incruse Ellipta) 1 puff inhalation DAILY HPI HPI Comments History of Present Illness Details 62-yr-old female presents for f/u visit for seizure, tremor, KEMAL. Pt last seen by Yolie ZIEGLER last month for KEMAL, and by me apprx 9 months ago. Pt denies any significant interval medical changes. Pt reports she had 2 recent breakthrough typical seizures- she is not sure what provoked these. She cannot state exactly how frequent her seizures are- at leats monthly. She is complaint w/ Gabapentin 600mg bid and Keppra 750mg bid. She continues to have BUE action tremor. She is still restless. She is complaint w/ iron supplement. Using walker. Her HST was inconclusive- she states she really did not sleep as something had happened in her buidling. [facility] Medical History HTN (hypertension) Surgical History H/O colonoscopy H/O endoscopy S/P bilateral foot surgery Family History Mother Cancer Diabetes Father Cancer Social History Alcohol intake: former Patient Tobacco Use Status: Former Tobacco user Substance Use Type: Marijuana Review of Systems Const All systems reviewed & are unremarkable except as noted in HPI and below Physical Exam Vital Signs: BMI result Body Mass Index 26.7 Const General: cooperative and no acute distress Orientation/consciousness: patient oriented x3 HEENT Head: Yes normocephalic Resp Effort & Inspection: normal respiratory effort and able to speak in complete sentences Neuro Other: BUE action/postural tremor. Stands slowly, steady with walker. General: patient oriented x3 and CN's II-XI intact bilaterally Cognition (Neuro): normal cognition Psych Appearance: grossly normal Mental Status: mental status grossly normal Speech and movement: Clear speech present Affect: normal affect Attitude: cooperative Thought process: Normal thought process present Thought content: Normal thought content present Assessment & Plan Assessment & Plan (1) KEMAL (obstructive sleep apnea): Code(s): G47.33 - Obstructive sleep apnea (adult) (pediatric) (2) Seizure: Code(s): R56.9 - Unspecified convulsions (3) Essential tremor: Code(s): G25.0 - Essential tremor (4) RLS (restless legs syndrome): Code(s): G25.81 - Restless legs syndrome (5) Anemia: Code(s): D64.9 - Anemia, unspecified Plan Continue Keppra to 750mg bid. Increase Gabapentin to 600mg qam, 300mg q afternoon, 600mg qhs- in hopes this improves seizure control and tremor. Continue Primidone 150mg TID. Continue Propranolol- would not increase further d/t dx of asthma. Hold Henry-Trio d/t seizure activity. Reviewed HST- inconclusive. Pt advised to undergo in-lab PSG to assess sleep apnea, as pt states she sleeps betetr w/ CPAP use. For now, Continue CPAP. Pt may benefit from reading/listening to Say Tash to Insomnia by Dr Dann Peng, Why your sleep is boken.. by Dr Pop Morillo, or similar CBTi resources. Continue iron supplement w/ vit c. Will check cbc, cmp, iron/ferritin studies. f/u in 4 months or sooner prn. Orders: Orders RT PSG in-lab sleep study Today G47.33 - Obstructive sleep apnea (adult) (pediat mandy) Complete Blood Count Auto Diff Today D64.9 - Anemia, unspecified, R56.9 - Unspecified convulsions Comprehensive Met. Panel Today D64.9 - Anemia, unspecified, R56.9 - Unspecified convulsions Ferritin Today D64.9 - Anemia, unspecified, R56.9 - Unspecified convulsions IRON PROFILE Today D64.9 - Anemia, unspecified, R56.9 - Unspecified convulsions Medications: New gabapentin q afternoon 300 mg PO DAILY 30 days 30 caps 3RF Changed From gabapentin 600 mg PO BID 28 days 56 tabs 3RF To gabapentin am and bedtime 600 mg PO BID 28 days 56 tabs 3RF Coding Level of Care Code Est Pt Level 4 (95332) Diagnoses KEMAL (obstructive sleep apnea) G47.33 Seizure R56.9 Essential tremor G25.0 RLS (restless legs syndrome) G25.81 Anemia D64.9
[2022-11-07 11:32] VITALS: BMI 26.7
== END 2022-11-07 12:22 | disposition home or self-care (01) ==
PROVIDERS: Visit Provider Nurse Practitioner Family
DX: G47.33 Obstructive sleep apnea (adult) (pediatric) (principal); R56.9 Unspecified convulsions; G25.0 Essential tremor; G25.81 Restless legs syndrome; D64.9 Anemia, unspecified
CPT/HCPCS: 99214

== ENCOUNTER → 2022-11-07 10:50 | Outpatient (BNVA) | payer MEDICARE, MEDICAID, SELFPAY | PROVIDERS: Visit Provider Nurse Practitioner Family | DX: G47.33 Obstructive sleep apnea (adult) (pediatric) (principal); R56.9 Unspecified convulsions; G25.0 Essential tremor; G25.81 Restless legs syndrome; D64.9 Anemia, unspecified; Z79.899 Other long term (current) drug therapy | CPT/HCPCS: 99212 ==

== ENCOUNTER → 2024-07-25 19:30 | Outpatient (REF) | payer MEDICARE, SELFPAY ==
--- OUTSIDE RECORDS SUMMARY | 2024-07-25 21:13 | XMS_ITS | Clinical Summary ---
Author Organization [facility], Address [address] [address] Phone Care Team Providers Care Tiger Machine Operator Name Role Phone Chito Todd MD Primary Care Provider [phone] Allergies Active Allergy Reactions Criticality Noted Date Comments Acetaminophen Nausea And Vomiting 02/18/2017 Acetaminophen-Codeine Nausea And Vomiting,Rash Low 02/18/2017 Bupropion Other (see comments) 02/18/2017 Hallucinations Codeine Rash,Vomiting Low 06/10/2019 Metronidazole Rash Low 02/18/2017 Nicotine Rash Low 02/25/2017 Oxycodone Nausea And Vomiting 02/18/2017 Sulfamethoxazole-Trimetho prim Rash,Shortness of breath High 02/18/2017 Tramadol Rash Low 02/25/2017 Medications Albuterol Sulfate 2.5 MG/0.5ML nebulizer solution Inhale 2.5 mg 3 times a day Active citalopram (CeleXA) 10 MG tablet Take 20 mg by mouth daily Active cloNIDine (CATAPRES) 0.2 MG tablet Take 0.2 mg by mouth daily Active ipratropium-albu terol (Combivent Respimat) 20-100 MCG/ACT inhaler inhale 1 puff by mouth every 4 hours if needed 9 Active divalproex (DEPAKOTE) 250 MG EC tablet Take 500 mg by mouth twice a day 8 Active docusate sodium (COLACE) 100 MG capsule Take 100 mg by mouth twice a day Active gabapentin (NEURONTIN) 600 MG tablet Take 600 mg by mouth twice a day Active hydrOXYzine (ATARAX) 50 MG tablet Take 50 mg by mouth 3 (three) times a day if needed Active ipratropium (ATROVENT) 0.02 % nebulizer solution Inhale 500 mcg 4 times a day Active losartan (COZAAR) 50 MG tablet Take 50 mg by mouth daily Active meclizine (ANTIVERT) 25 MG tablet Take 25 mg by mouth 3 (three) times a day if needed Active montelukast (SINGULAIR) 10 MG tablet Take 10 mg by mouth daily Active OLANZapine (ZyPREXA) 10 MG tablet Take 7.5 mg by mouth daily Active pantoprazole (PROTONIX) 40 MG EC tablet Take 40 mg by mouth daily Active primidone (MYSOLINE) 50 MG tablet Take 50 mg by mouth 3 times a day Active propranolol (INDERAL) 10 MG tablet Take 10 mg by mouth 3 times a day Active sodium chloride 7 % nebulizer solution Inhale 4 mL twice a day 9 Active tiotropium (SPIRIVA) 18 MCG per inhalation capsule Place 18 mcg into inhaler and inhale daily Active ondansetron ODT (ZOFRAN-ODT) 8 MG dispersible tablet Take 8 mg by mouth Active budesonide (RHINOCORT AQ) 32 MCG/ACT nasal spray Administer 1 spray into affected nostril(s) daily Active fluticasone (FLONASE) 50 MCG/ACT nasal spray Administer 1 spray into affected nostril(s) daily Active aspirin 325 MG tablet Take 325 mg by mouth daily 8 Active cetirizine (ZyrTEC) 10 MG tablet Take 10 mg by mouth daily Active Multiple Vitamin (MULTIVITAMINS PO) Take 1 tablet by mouth daily Active benzonatate (TESSALON) 100 MG capsule Take 100 mg by mouth 3 (three) times a day if needed 2 Active Cholecalciferol 250 MCG (00550 UT) capsule Take 10,000 Units by mouth in the morning. Active cloNIDine (CATAPRES) 0.1 MG tablet Take 0.1 mg by mouth 3 Active escitalopram (LEXAPRO) 10 MG tablet TK 1 T PO QD 3 Active Fluticasone-Umec lidin-Vilant (Trelegy Ellipta) 200-62.5-25 MCG/ACT aerosol powder Inhale 1 puff in the morning. 2 Active hydrOXYzine (ATARAX) 50 MG tablet Take 50 mg by mouth in the morning. Active Active Problems Problem Noted Date Diagnosed Date Syndrome of inappropriate vasopressin secretion 10/08/2022 Acute kidney failure 03/01/2021 10/06/2022 Acute nontraumatic kidney injury 02/23/2021 Overview (10/06/2022): Last Assessment & Plan: Resolved with fluids. Likely secondary to dehydration and losartan. Blood pressure on the low side even off of losartan. BP stable off losartan. -Ultrasound as above kidneys are normal -Continue off of losartan Essential hypertension 09/26/2019 Anemia 05/14/2019 Overview (06/10/2019): Last Assessment & Plan: This has been a chronic problem according to the patient with a history of iron supplements. Patient is not interested in iron supplementation due to associated constipation with use in the past. Decreased RBC (3.44), Hgb (10.3), and Hct (29.7) on 05/14/19 MCV within normal limits. - Will not order iron studies at this time. - Continue to monitor CBC. Hyponatremia 05/13/2019 Overview (06/10/2019): Last Assessment & Plan: Patient reports that she drinks a large amount of water, but denies that she has been drinking more than she does at baseline. Serum sodium of 126 on 05/13/19. 05/14/19: CBC significant for decreased RBC (3.44), Hgb (10.3), and Hct (29.7). MCV WNL. CMP significant for decreased Na (127), Cl (95), Albumin (3.5), and total protein (5.8). Mg slightly decreased at 1.5. AM Cortisol elevated at 24.3. Serum osmolality decreased at 267. Random urine sodium WNL at 51. Urine osmolality WNL at 196. Phosphate WNL at 2.9. - Nephrology consult pending - Start Magnesium sulfate 2g IV once - Repeat CMP in the morning - Repeat Mg in the morning Resolved Problems Problem Noted Date Diagnosed Date Resolved Date Protein-calorie malnutrition 03/06/2021 10/06/2022 10/06/2022 Anxiety disorder 03/01/2021 10/06/2022 10/06/2022 Dysphagia 03/01/2021 10/06/2022 10/06/2022 Gastro-esophageal reflux dis ease without esophagitis 03/01/2021 10/06/2022 10/06/2022 Epilepsy, not intractable, w ithout status epilepticus 03/01/2021 10/06/2022 10/06/2022 Major depressive disorder with single episode 03/01/2010/06/2022 10/06/2022 Disorder of electrolytes 02/26/2021 10/06/2022 Overview (10/06/2022): Last Assessment & Plan: Hypophos, hypomag likely due to refeeding. Nutrition is following Continue to monitor Cont to replete Nausea and vomiting 02/23/2021 10/06/2022 10/07/19 Overview (10/06/2022): Last Assessment & Plan: Resolved and she is tolerating a regular soft diet. Has a history of esophageal dysmotility as seen on the barium swallow in 2019. Had been a patient of Dr. Coy's office but was discharged from the practice for multiple no-shows. No longer having nausea but still has some pain in her epigastric area. She is interested in advancing her diet. S/P esophageal manometry 02/26/21. Dr Steele will see her in follow up . Case was discussed with Dr. Coy plan will be for outpatient reading of the of the study Nutrition is following. They mention history of food insecurity and transportation insecurity. -Close monitoring of electrolytes with repletion as needed Drug-induced encephalopathy 08/31/2020 10/06/2022 10/06/2022 Moderate protein-calorie malnutrition 08/27/202010/06/2022 Overview (10/06/2022): Last Assessment & Plan: Appreciate input from nutrition. Thyroid nodule 08/27/2020 10/06/2022 10/06/2022 Overview (10/06/2022): Last Assessment & Plan: - CT c-spine with new 2.8cm nodule - TSH nl, 1.72 this admission - Thyroid U/S confirming nodule, will need workup as outpatient Tremor 08/27/2020 10/06/2022 10/06/2022 Overview (10/06/2022): Last Assessment & Plan: - Holding home primidone - Home propranolol initially held d/t bradycardia - Restarted propranolol 5mg BID 08/30, pressures and HR stable Obstructive sleep apnea syndrome 04/20/2020 10/07/1910/06/2022 Overview (10/06/2022): Last Assessment & Plan: Obstructive sleep apnea on CPAP. -Continue CPAP with sleep Last Assessment & Plan: Continue CPAP. Smoker 03/14/2020 10/06/2022 10/06/2022 Overview (10/06/2022): Last Assessment & Plan: Lung cancer screening CT due in October 2022. Previous monitor lung RADS 2. Stenosis of cervix uteri 12/29/2019 10/06/2022 Syndrome of inappropriate va sopressin secretion 06/23/2019 10/06/2022 Abdominal mass 05/13/2019 10/06/2022 Overview (06/10/2019): Last Assessment & Plan: History of high-grade intra-epithelial cervical dysplasia . patient reports a mass in the left lower quadrant that is palpable on exam. She reports associated severe, intermittent cramping pain. She denies vaginal bleeding. Last PAP completed 1 year ago. Unclear [employer] history including an abnormal PAP with burning of warts. CT Abdomen/Pelvis showed no acute intraabdominal or intrapelvic process. There was no significant interval change in size of a cystic lesion in the left adnexa. - Encourage patient to follow up with [employer] upon discharge. 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 Encouraged cessation. Last Assessment & Plan: Patient reports smoking just 1 to 3 cigarettes daily due to her nausea/vomiting which is irritated by cigarette and marijuana smoke. -Nicotine support refused. Asthma 05/06/2017 10/06/2022 10/06/2022 Overview (10/06/2022): Last Assessment & Plan: Continue with Breo. Tolerating Xolair. Missed her last shot due to fear of Covid. Did encourage her to reschedule. Chronic obstructive pulmonary disease 05/06/201710/06/2022 Overview (10/06/2022): Last Assessment & Plan: Continue with Spiriva and Adderall and ipratropium bromide nebulizer twice daily standing and twice daily PRN. Family History Medical History Relation Comments Alcohol abuse Father Lung cancer Father Diabetes Mother Heart disease Mother Heart attack Mother's Brother Breast cancer Mother's Sister Alcohol abuse Sister Relation Status Comments Father Mother Mother's Brother Mother's Sister Sister Social History Tobacco Use Types Packs/Day Years Used Date Smoking Tobacco: Every Day Cigarettes 0.3 17 Alcohol Use Standard Drinks/Week Comments Not Currently 0 (1 standard drink = 0.6 oz pur e alcohol) Comments Unknown Sex and Gender Information Value Date Recorded Sex Assigned at Not on file Legal Sex Female 1:02 PM EDT Gender Identity Not on file Sexual Orientation Not on file Last Filed Vital Signs Vital Sign Reading Time Taken Comments Blood Pressure 110/55 10/08/2022 11:57 AM EDT Pulse 66 10/08/2022 11:57 AM EDT Temperature - - Respiratory Rate 14 10/08/2022 11:57 AM EDT Oxygen Saturation - - Inhaled Oxygen Concentration - - Weight 58.5 kg (129 lb) 10/08/2022 11:57 AM EDT Height 149.9 cm (4' 11 ) 10/08/2022 11:57 AM EDT Body Mass Index 26.05 10/08/2022 11:57 AM EDT Plan of Treatment Health Maintenance Due Date Last Done Comments Breast Cancer Screening 1960 Colorectal Cancer Screening: Annual FOBT 2011 Colorectal Cancer Screening: Colonoscopy 2011 Colorectal Cancer Screening: Sigmoidoscopy 2011 Pneumococcal Vaccine: 50+ Years (3 of 3 - PPSV23, PCV20 or PCV21) 12/31/2015 10/18/2014, 10/18/2014, 12/30/2010, Additional history exists Influenza Vaccine (Season Ended) 2024 12/03/2021, 01/10/2021, 12/07/2019, Additional history exists Pneumococcal Vaccine: Peds (0 to 5 Years) and At-Risk Patients (6 to 49 Years) Discontinued 10/18/2014, 10/18/2014, 12/30/2010, Additional history exists Hepatitis B Vaccine Aged Out No longe r eligible based on patient's age to complete this topic Insurance Medicaid [place] [employer] Commercial Care Teams Tiger Machine Operator Relationship Specialty Start Date End Date Chito Todd MD [address] [place] [id number] PCP - General Internal Medicine 10/08/22
--- OUTSIDE RECORDS SUMMARY | 2024-07-25 21:13 | XMS_ITS | Clinical Summary ---
Author Organization Unknown Care Team Providers Care Process Pumper Name Role Phone KAT MARCELO BEHAVIORAL SPECIALIST, SHARYN Unavailable Palmira FONTAINE RN, DREA Unavailable Unavailable ANGEL LUIS SEVERINO, DOROTHEA Unavailable Unavailable Payers Payer Name Policy Type Policy Number Effective Date Expira tion Date [employer] MEDICARE ADVANTAGE FFS [id number] [place] - [place] [id number] MEDICARE - [facility]/MD - PD [id number] Problems Condition Name Condition Details Condition Category Status Onset Date Resolution Date Last Treatment Date Treating Clinician Comments 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 2023-03 00:00: 00 CHRONIC OBSTRUCTIVE PULMONARY DISEASE, UNSPECIFIED Active 2023-03 00:00: 00 ANXIETY DISORDER, UNSPECIFIED Active 2023-03 00:00: 00 REPEATED FALLS Active 2023-03 00:00: 00 EPILEPSY, UNSP, NOT INTRACTABLE, WITHOUT STATUS EPILEPTICUS Active 2023-03 00:00: 00 BORDERLINE PERSONALITY DISORDER Active 03-16 00:00: 00 OTHER PULMONARY EMBOLISM WITHOUT ACUTE COR PULMONALE Active 03-16 00:00: 00 SLEEP APNEA, UNSPECIFIED Active 03-16 00:00: 00 VERTIGO OF CENTRAL ORIGIN Active 03-16 00:00: 00 NICOTINE DEPENDENCE, UNSPECIFIED, UNCOMPLICATE D Active 03-16 00:00: 00 TREMOR, UNSPECIFIED Active 03-16 00:00: 00 ESSENTIAL (PRIMARY) HYPERTENSION Active 03-16 00:00: 00 SUICIDAL IDEATIONS Active 03-16 00:00: 00 Allergies, Adverse Reactions, Alerts Allergy Name Allergy Type Status Severity Reaction(s) Onset Date Inactive Date Treating Clinician Comments BACTRIM Propensity to adverse reactions Active 2023-03 15:30: 26 CODEINE Propensity to adverse reactions Active 2023-03 15:29: 25 WELLBUTRIN Propensity to adverse reactions Active 2023-03 15:29: 53 FLAGYL Propensity to adverse reactions Active 2023-03 15:30: 03 TRAMADOL Propensity to adverse reactions Active 2023-03 15:28: 34 ACETAMINOPHE N Propensity to adverse reactions Active 2023-03 15:31: 08 OXYCODONE Propensity to adverse reactions Active 2023-03 15:27: 59 TOMATOS Propensity to adverse reactions Active 2023-03 15:30: 55 ARTICHOKE Propensity to adverse reactions Active 2023-03 15:31: 21 Medications Ordered Medication Name Filled Medication Name Start Date Stop Date Current Medication? Ordering Clinician Indication Dosage Frequency Signature (SIG) Comments Components Dupixent 300 mg/2 mL subcutaneou s syringe 04-17 00:00: 00 01-19 23:59 :00 No [id number] 300 mg EVERY OTHER WEEK 300 mg EVERY OTHER WEEK (route: subcutaneo us) Med Classific ation: Dermatolo gical amlodipine 2.5 mg tablet 04-02 00:00: 00 10-28 23:59 :00 No [id number] 2.5 mg EVERY AM 2.5 mg EVERY AM (route: oral) Med Classific ation: Cardiovas cular Therapy Agents Trelegy Ellipta 200 mcg-62.5 mcg-25 mcg powder for inhalation 04-02 00:00: 00 04-23 23:59 :00 No [id number] 200 mcg DAILY 200 mcg DAILY (route: inhalation ) Med Classific ation: Respirato ry Therapy Agents prednisone 10 mg tablet 04-01 00:00: 00 04-23 23:59 :00 No [id number] 10 mg DAILY 10 mg DAILY (route: oral) Med Classific ation: Endocrine gabapentin 300 mg capsule 03-27 00:00: 00 10-27 23:59 :00 No [id number] 1 capsule NOON 1 capsule NOON (route: oral) Med Classific ation: Central Nervous System Agents gabapentin 600 mg tablet 03-27 00:00: 00 10-27 23:59 :00 No [id number] 2 tablet 2 TIMES DAILY 2 tablet 2 TIMES DAILY (route: oral) Med Classific ation: Central Nervous System Agents olanzapine 5 mg tablet 03-27 00:00: 00 06-23 23:59 :00 No [id number] 5 mg BEDTIME 5 mg BEDTIME (route: oral) Med Classific ation: Central Nervous System Agents montelukast 10 mg tablet 03-26 00:00: 00 04-23 23:59 :00 No [id number] 10 mg BEDTIME 10 mg BEDTIME (route: oral) Med Classific ation: Respirato ry Therapy Agents zileuton ER 600 mg tablet,exte nded release 12hr mphase 03-26 00:00: 00 01-19 23:59 :00 No [id number] 600 mg 2 TIMES DAILY 600 mg 2 TIMES DAILY (route: oral) Med Classific ation: Respirato ry Therapy Agents aripiprazol e 15 mg tablet 03-25 00:00: 00 01-19 23:59 :00 No [id number] 0.5 tablet BEDTIME 0.5 tablet BEDTIME (route: oral) Med Classific ation: Central Nervous System Agents clonidine HCl 0.1 mg tablet 03-25 00:00: 00 10-27 23:59 :00 No [id number] 0.1 mg BEDTIME 0.1 mg BEDTIME (route: oral) Med Classific ation: Cardiovas cular Therapy Agents escitalopra m 10 mg tablet 03-25 00:00: 00 01-19 23:59 :00 No [id number] 10 mg DAILY 10 mg DAILY (route: oral) Med Classific ation: Central Nervous System Agents hydroxyzine HCl 25 mg tablet 03-25 00:00: 00 01-19 23:59 :00 No [id number] 25 mg 3 TIMES DAILY 25 mg 3 TIMES DAILY (route: oral) Med Classific ation: Central Nervous System Agents levetiracet am 750 mg tablet 2024-0 1-10 00:00: 00 01-19 23:59 :00 No [id number] 750 mg 2 TIMES DAILY 750 mg 2 TIMES DAILY (route: oral) Med Classific ation: Central Nervous System Agents pantoprazol e 40 mg tablet,boni stewardd release 1-10 00:00: 00 10-27 23:59 :00 No [id number] 40 mg 2 TIMES DAILY 40 mg 2 TIMES DAILY (route: oral) Med Classific ation: Gastroint estinal Therapy Agents primidone 50 mg tablet 1-10 00:00: 00 01-19 23:59 :00 No [id number] 50 mg 3 TIMES DAILY 50 mg 3 TIMES DAILY (route: oral) Med Classific ation: Central Nervous System Agents Eliquis 5 mg tablet 2-08 00:00: 00 01-19 23:59 :00 No [id number] 5 mg 2 TIMES DAILY 5 mg 2 TIMES DAILY (route: oral) Med Classific ation: Hematolog ical Agents magnesium oxide 400 mg (241.3 mg magnesium) tablet 08 00:00: 00 01-19 23:59 :00 No [id number] 0.5 tablet DAILY 0.5 tablet DAILY (route: oral) Med Classific ation: Electroly te Balance-N utritiona l Products multivitami n tablet 2-08 00:00: 00 01-19 23:59 :00 No [id number] 1 tablet DAILY 1 tablet DAILY (route: oral) Med Classific ation: Electroly te Balance-N utritiona l Products meclizine 25 mg tablet 06-23 00:00: 00 01-19 23:59 :00 No [id number] 1 tablet 3 TIMES DAILY 1 tablet 3 TIMES DAILY (route: oral) Med Classific ation: Gastroint estinal Therapy Agents Ambien 5 mg tablet 08-11 00:00: 00 01-19 23:59 :00 No [id number] 1 tablet BEDTIME 1 tablet BEDTIME (route: oral) Med Classific ation: Central Nervous System Agents olanzapine 5 mg tablet 08-11 00:00: 00 10-27 23:59 :00 No [id number] 1 tablet EVERY PM 1 tablet EVERY PM (route: oral) Med Classific ation: Central Nervous System Agents albuterol sulfate concentrate 2.5 mg/0.5 mL solution for nebulizatio n 09-30 00:00: 00 01-19 23:59 :00 No [id number] 1 vial, nebuliz er 4 TIMES DAILY 1 vial, nebulizer 4 TIMES DAILY (route: inhalation ) Med Classific ation: Respirato ry Therapy Agents amoxicillin 500 mg capsule 09-30 00:00: 00 10-10 23:59 :00 No [id number] 500 mg 2 TIMES DAILY 500 mg 2 TIMES DAILY (route: oral) Med Classific ation: Anti-Infe ctive Agents ondansetron HCl 4 mg tablet 10-05 00:00: 00 10-27 23:59 :00 No [id number] 1 tablet EVERY 8 HOURS 1 tablet EVERY 8 HOURS (route: oral) Med Classific ation: Gastroint estinal Therapy Agents amlodipine 5 mg tablet 10-27 00:00: 00 01-19 23:59 :00 No [id number] 5 mg DAILY 5 mg DAILY (route: oral) Med Classific ation: Cardiovas cular Therapy Agents Combivent Respimat 20 mcg-100 mcg/actuati on solution for inhalation 10-27 00:00: 00 01-19 23:59 :00 No [id number] 20 puff 4 TIMES DAILY 20 puff 4 TIMES DAILY (route: inhalation ) Med Classific ation: Respirato ry Therapy Agents Flonase Allergy Relief 50 mcg/actuati on nasal spray,suspe nsion 10-27 00:00: 00 01-19 23:59 :00 No [id number] 50 spray DIRECTED 50 spray DIRECTED (route: nasal) Med Classific ation: Respirato ry Therapy Agents gabapentin 300 mg capsule 10-27 00:00: 00 01-19 23:59 :00 No [id number] 300 capsule 3 TIMES DAILY 300 capsule 3 TIMES DAILY (route: oral) Med Classific ation: Central Nervous System Agents ipratropium 0.5 mg-albutero l 3 mg (2.5 mg base)/3 mL nebulizatio n soln 10-27 00:00: 00 01-19 23:59 :00 No [id number] Per instruc tions NEEDED Per instructio ns NEEDED (route: inhalation ) Med Classific ation: Respirato ry Therapy Agents omeprazole 40 mg capsule,del ayed release 10-27 00:00: 00 01-19 23:59 :00 No [id number] 40 mg DAILY 40 mg DAILY (route: oral) Med Classific ation: Gastroint estinal Therapy Agents prednisone 10 mg tablet 10-27 00:00: 00 01-19 23:59 :00 No [id number] 10 mg DAILY 10 mg DAILY (route: oral) Med Classific ation: Endocrine Singulair 10 mg tablet 10-27 00:00: 00 01-19 23:59 :00 No [id number] 10 mg DAILY 10 mg DAILY (route: oral) Med Classific ation: Respirato ry Therapy Agents Trelegy Ellipta 100 mcg-62.5 mcg-25 mcg powder for inhalation 10-27 00:00: 00 01-19 23:59 :00 No [id number] 100 inhalat ion DAILY 100 inhalation DAILY (route: inhalation ) Med Classific ation: Respirato ry Therapy Agents aripiprazol e 15 mg tablet 2023-03 00:00: 00 Yes [id number] 15 mg BEDTIME 15 mg BEDTIME (route: oral) Med Classific ation: Central Nervous System Agents docusate sodium 100 mg capsule 2023-03 00:00: 00 Yes [id number] 100 mg 2 TIMES DAILY 100 mg 2 TIMES DAILY (route: oral) Med Classific ation: Gastroint estinal Therapy Agents Eliquis 5 mg tablet 2023-03 00:00: 00 Yes [id number] 5 mg 2 TIMES DAILY 5 mg 2 TIMES DAILY (route: oral) Med Classific ation: Hematolog ical Agents escitalopra m 10 mg tablet 2023-03 00:00: 00 Yes [id number] 10 mg DAILY 10 mg DAILY (route: oral) Med Classific ation: Central Nervous System Agents gabapentin 300 mg capsule 2023-03 00:00: 00 03-14 23:59 :00 No [id number] 300 mg 3 TIMES DAILY 300 mg 3 TIMES DAILY (route: oral) Med Classific ation: Central Nervous System Agents levetiracet am 750 mg tablet 2023-03 00:00: 00 Yes [id number] 750 mg 2 TIMES DAILY 750 mg 2 TIMES DAILY (route: oral) Med Classific ation: Central Nervous System Agents magnesium 400 mg (as magnesium oxide) capsule 2023-03 00:00: 00 05-16 23:59 :00 No [id number] 400 mg DAILY 400 mg DAILY (route: oral) Med Classific ation: Electroly te Balance-N utritiona l Products meclizine 25 mg tablet 2023-03 00:00: 00 04-29 23:59 :00 No [id number] 25 mg NEEDED 25 mg NEEDED (route: oral) Med Classific ation: Gastroint estinal Therapy Agents montelukast 10 mg tablet 2023-03 00:00: 00 04-18 23:59 :00 No [id number] 10 mg EVERY PM 10 mg EVERY PM (route: oral) Med Classific ation: Respirato ry Therapy Agents omeprazole 40 mg capsule,del ayed release 2023-03 00:00: 00 Yes [id number] 40 mg DAILY 40 mg DAILY (route: oral) Med Classific ation: Gastroint estinal Therapy Agents prednisone 10 mg tablet 2023-03 00:00: 00 Yes [id number] 10 mg DAILY 10 mg DAILY (route: oral) Med Classific ation: Endocrine primidone 50 mg tablet 2023-03 00:00: 00 Yes [id number] 50 mg 3 TIMES DAILY 50 mg 3 TIMES DAILY (route: oral) Med Classific ation: Central Nervous System Agents zolpidem 5 mg tablet 2023-03 00:00: 00 Yes [id number] 5 mg BEDTIME 5 mg BEDTIME (route: oral) Med Classific ation: Central Nervous System Agents amlodipine 5 mg tablet 2023-03 00:00: 00 Yes [id number] 1 tablet DAILY 1 tablet DAILY (route: oral) Med Classific ation: Cardiovas cular Therapy Agents gabapentin 300 mg capsule 2023-03 00:00: 00 Yes [id number] 1 capsule NOON 1 capsule NOON (route: oral) Med Classific ation: Central Nervous System Agents gabapentin 600 mg tablet 03-17 00:00: 00 Yes [id number] 1 tablet 2 TIMES DAILY 1 tablet 2 TIMES DAILY (route: oral) Med Classific ation: Central Nervous System Agents hydroxyzine pamoate 50 mg capsule 2023-03 00:00: 00 Yes [id number] 1 capsule 2 TIMES DAILY 1 capsule 2 TIMES DAILY (route: oral) Med Classific ation: Central Nervous System Agents losartan 50 mg tablet 2023-03 00:00: 00 Yes [id number] 1 tablet DAILY 1 tablet DAILY (route: oral) Med Classific ation: Cardiovas cular Therapy Agents multivitami n tablet 2023-03 00:00: 00 Yes [id number] 1 tablet DAILY 1 tablet DAILY (route: oral) Med Classific ation: Electroly te Balance-N utritiona l Products olanzapine 10 mg tablet 2023-03 00:00: 00 04-06 23:59 :00 No [id number] 1 tablet BEDTIME 1 tablet BEDTIME (route: oral) Med Classific ation: Central Nervous System Agents pantoprazol e 40 mg tablet,boni yed release 2023-03 00:00: 00 Yes [id number] 1 tablet 2 TIMES DAILY 1 tablet 2 TIMES DAILY (route: oral) Med Classific ation: Gastroint estinal Therapy Agents propranolol 10 mg tablet 2023-03 00:00: 00 Yes [id number] 1 tablet 3 TIMES DAILY 1 tablet 3 TIMES DAILY (route: oral) Med Classific ation: Cardiovas cular Therapy Agents Vitamin D3 25 mcg (1,000 unit) capsule 2023-03 00:00: 00 Yes [id number] 1 capsule BEDTIME 1 capsule BEDTIME (route: oral) Med Classific ation: Electroly te Balance-N utritiona l Products zileuton ER 600 mg tablet,exte nded release 12hr mphase 2023-03 00:00: 00 05-16 23:59 :00 No [id number] 1 tablet 2 TIMES DAILY 1 tablet 2 TIMES DAILY (route: oral) Med Classific ation: Respirato ry Therapy Agents Dupixent 300 mg/2 mL subcutaneou s pen injector 2023-03 00:00: 00 Yes [id number] 300 mg EVERY OTHER WEEK 300 mg EVERY OTHER WEEK (route: subcutaneo us) Med Classific ation: Dermatolo gical albuterol sulfate 2.5 mg/3 mL (0.083 %) solution for nebulizatio n 03-22 00:00: 00 Yes [id number] Per instruc tions 4 TIMES DAILY Per instructio ns 4 TIMES DAILY (route: inhalation ) Med Classific ation: Respirato ry Therapy Agents Combivent Respimat 20 mcg-100 mcg/actuati on solution for inhalation 03-22 00:00: 00 Yes [id number] 1 puff 4 TIMES DAILY 1 puff 4 TIMES DAILY (route: inhalation ) Med Classific ation: Respirato ry Therapy Agents fluticasone propionate 50 mcg/actuati on nasal spray,suspe nsion - 00:00: 00 Yes [id number] 1 spray DAILY 1 spray DAILY (route: nasal) Med Classific ation: Respirato ry Therapy Agents ipratropium 0.5 mg-albutero l 2.5 mg/2.5 mL solution for nebulizatio n 03-22 00:00: 00 Yes [id number] Per instruc tions 4 TIMES DAILY Per instructio ns 4 TIMES DAILY (route: inhalation ) Med Classific ation: Respirato ry Therapy Agents Trelegy Ellipta 200 mcg-62.5 mcg-25 mcg powder for inhalation - 00:00: 00 Yes [id number] 1 inhalat ion DAILY 1 inhalation DAILY (route: inhalation ) Med Classific ation: Respirato ry Therapy Agents roflumilast 500 mcg tablet - 00:00: 00 Yes [id number] 1 mcg DAILY 1 mcg DAILY (route: oral) Med Classific ation: Respirato ry Therapy Agents ferrous gluconate 324 mg (37.5 mg iron) tablet 2-14 00:00: 00 Yes [id number] 1 tablet DAILY 1 tablet DAILY (route: oral) Med Classific ation: Electroly te Balance-N utritiona l Products meclizine 12.5 mg tablet 2-14 00:00: 00 Yes [id number] 1 tablet 3 TIMES DAILY 1 tablet 3 TIMES DAILY (route: oral) Med Classific ation: Gastroint estinal Therapy Agents zileuton ER 600 mg tablet,exte nded release 12hr mphase - 00:00: 00 07-11 23:59 :00 No [id number] 2 tablet 2 TIMES DAILY 2 tablet 2 TIMES DAILY (route: oral) Med Classific ation: Respirato ry Therapy Agents Mag Glycinate 100 mg tablet 3-10 00:00: 00 06-27 23:59 :00 No [id number] 3 tablet DAILY 3 tablet DAILY (route: oral) Med Classific ation: Electroly te Balance-N utritiona l Products primidone 50 mg tablet 07-20 00:00: 00 Yes [id number] 3 tablet 3 TIMES DAILY 3 tablet 3 TIMES DAILY (route: oral) Med Classific ation: Central Nervous System Agents Vital Signs Vital Name Observation Time Observation Value Commen ts Temperature 2024-07-22 13:55:00.000 97.6 [degF] Temperature 2024-07-20 13:39:00.000 97.4 [degF] Pulse 2024-07-22 13:55:00.000 76 /min Pulse 2024-07-20 13:39:00.000 68 /min O2 Saturation (%) 2024-07-22 13:56:00.000 96 % O2 Saturation (%) 2024-07-20 13:39:00.000 94 % Respirations 2024-07-22 13:55:00.000 16 /min Respirations 2024-07-20 13:39:00.000 16 /min Systolic Blood Pressure 2024-07-22 13:55:00.000 120 mm [Hg] Systolic Blood Pressure 2024-07-20 13:39:00.000 100 mm [Hg] Diastolic Blood Pressure 2024-07-22 13:55:00.000 60 mm [Hg] Diastolic Blood Pressure 2024-07-20 13:39:00.000 60 mm [Hg] Plan of Treatment Planned Activity Planned Date Details Comments Future Scheduled Test SKILLED NU RSE TO EVALUATE PATIENT, IDENTIFY PRIMARY AND CO-MORBID CONDITIONS CODED PER CODING GUIDELINES, AND DEVELOP PATIENT SPECIFIC PLAN OF CARE THAT INCLUDES PATIENT GOAL FOR HOME HEALTH. [code = SKILLED NURSE TO EVALUATE PATIENT, IDENTIFY PRIMARY AND CO-MORBID CONDITIONS CODED PER CODING GUIDELINES, AND DEVELOP PATIENT SPECIFIC PLAN OF CARE THAT INCLUDES PATIENT GOAL FOR HOME HEALTH.] Future Scheduled Test SKILLED NU RSE TO PERFORM HOME SAFETY AND FALL ASSESSMENT AND PROVIDE INSTRUCTION TO IMPLEMENT HOME SAFETY AND FALL PREVENTION STRATEGIES. [code = SKILLED NURSE TO PERFORM HOME SAFETY AND FALL ASSESSMENT AND PROVIDE INSTRUCTION TO IMPLEMENT HOME SAFETY AND FALL PREVENTION STRATEGIES.] Future Scheduled Test SKILLED NU RSE WILL MAINTAIN SITUATIONAL AWARENESS FOR SAFETY AND WILL NOTIFY CLINICAL NURSE WOUND CARE AND PHYSICIAN/PROVIDER WITH ANY CHANGE IN CONDITION. [code = SKILLED NURSE WILL MAINTAIN SITUATIONAL AWARENESS FOR SAFETY AND WILL NOTIFY CLINICAL NURSE WOUND CARE AND PHYSICIAN/PROVIDER WITH ANY CHANGE IN CONDITION.] Future Scheduled Test SKILLED NU RSE TO ASSESS PATIENTS PSYCHOSOCIAL STATUS TO IDENTIFY POTENTIAL ISSUES THAT MAY COMPLICATE THE PROVISION OF THE PLAN OF CARE INCLUDING THE PATIENTS ABILITY TO ACCESS COMMUNITY RESOURCES AND PSYCHOSOCIAL SUPPORT SERVICES. [code = SKILLED NURSE TO ASSESS PATIENTS PSYCHOSOCIAL STATUS TO IDENTIFY POTENTIAL ISSUES THAT MAY COMPLICATE THE PROVISION OF THE PLAN OF CARE INCLUDING THE PATIENTS ABILITY TO ACCESS COMMUNITY RESOURCES AND PSYCHOSOCIAL SUPPORT SERVICES.] Future Scheduled Test SKILLED NU RSE TO O/A OF PATIENTS MENTAL/BEHAVIORAL STATUS, ASSESS VITAL SIGNS EACH VISIT ALLOW 2 PRNS FOR MEDICATION MANAGEMENT. [code = SKILLED NURSE TO O/A OF PATIENTS MENTAL/BEHAVIORAL STATUS, ASSESS VITAL SIGNS EACH VISIT ALLOW 2 PRNS FOR MEDICATION MANAGEMENT.] Future Scheduled Test SKILLED NU RSE FOR O/A OF GENERAL HEALTH STATUS OF PAIN, CARDIAC, RESPIRATORY, GASTROINTESTINAL, GENITOURINARY, SKIN, NEUROLOGIC, ENDOCRINE SYSTEMS TO IDENTIFY CHANGES ASSOCIATED WITH EXACERBATION FOR EARLY INTERVENTION OF COMPLICATIONS EACH VISIT [code = SKILLED NURSE FOR O/A OF GENERAL HEALTH STATUS OF PAIN, CARDIAC, RESPIRATORY, GASTROINTESTINAL, GENITOURINARY, SKIN, NEUROLOGIC, ENDOCRINE SYSTEMS TO IDENTIFY CHANGES ASSOCIATED WITH EXACERBATION FOR EARLY INTERVENTION OF COMPLICATIONS EACH VISIT ] Future Scheduled Test SKILLED NU RSE TO REVIEW PATIENT MEDICATIONS. INSTRUCT PATIENT/CAREGIVER ON MONITORING OF EFFECTIVENESS, ADVERSE DRUG REACTIONS, SIDE EFFECTS OF ALL MEDICATIONS (PRESCRIPTION/-OTC), AND HOW AND WHEN TO REPORT PROBLEMS. [code = SKILLED NURSE TO REVIEW PATIENT MEDICATIONS. INSTRUCT PATIENT/CAREGIVER ON MONITORING OF EFFECTIVENESS, ADVERSE DRUG REACTIONS, SIDE EFFECTS OF ALL MEDICATIONS (PRESCRIPTION/-OTC), AND HOW AND WHEN TO REPORT PROBLEMS.] Future Scheduled Test SKILLED NU RSE TO PRE-POUR MEDICATION PER MEDICATION LIST WEEKLY [code = SKILLED NURSE TO PRE-POUR MEDICATION PER MEDICATION LIST WEEKLY ] Future Scheduled Test SKILLED NU RSE FOR O/A AND SKILLED TEACHING RELATED TO MANAGEMENT OF DEPRESSIVE SYMPTOMS AND/OR DEPRESSION. SN TO REPORT SIGNIFICANT CHANGE IN DEPRESSIVE SYMPTOMS TO CLINICAL PROVIDER FOR EARLY INTERVENTION. [code = SKILLED NURSE FOR O/A AND SKILLED TEACHING RELATED TO MANAGEMENT OF DEPRESSIVE SYMPTOMS AND/OR DEPRESSION. SN TO REPORT SIGNIFICANT CHANGE IN DEPRESSIVE SYMPTOMS TO CLINICAL PROVIDER FOR EARLY INTERVENTION.] Future Scheduled Test SKILLED NU RSE TO INSTRUCT ON SAFETY MEASURES TO PREVENT INJURY SECONDARY TO SEIZURE DISORDER/IMPAIRED NEUROLOGICAL STATUS. [code = SKILLED NURSE TO INSTRUCT ON SAFETY MEASURES TO PREVENT INJURY SECONDARY TO SEIZURE DISORDER/IMPAIRED NEUROLOGICAL STATUS.] Goal 2024-03-18 Patient Goal - STAY HOME Goal 2024-05-16 Patient Goal - STAY HOME Goal 2024-07-15 Patient Goal - [facility] TO BE MEDICATION COMPLIANCE Goal Patient Goal - [facility] TO BE MEDICATION COMPLIANCE Goal Provider Goal - A PLAN OF CARE WILL BE ESTABLISHED THAT MEETS PATIENT'S LONG TERM NEEDS AND INCLUDES PATIENT GOAL FOR HOME HEALTH. Goal Provider Goal - PATIENT/CAREGIVER WILL VERBALIZE/DEMONSTRATE EFFECTIVE HOME SAFETY AND FALL PREVENTION STRATEGIES THROUGHOUT CERTIFICATION PERIOD. Goal Provider Goal - PATIENT WILL REMAIN SAFE IN THE COMMUNITY AND WILL BE FREE OF DANGER TO SELF AND OTHERS THROUGHOUT THE CERTIFICATION PERIOD. Goal Provider Goal - PSYCHOSOCIAL NEEDS WILL BE IDENTIFIED AND PLAN IMPLEMENTED TO MINIMIZE RISK THROUGHOUT CERTIFICATION PERIOD. Goal Provider Goal - ALTERED MENTAL/BEHAVIORAL STATUS WILL BE IDENTIFIED PROMPTLY AND INTERVENTION INITIATED QUICKLY TO MINIMIZE ASSOCIATED RISKS THROUGHOUT CERTIFICATION PERIOD. Goal Provider Goal - CHANGE IN GENERAL HEALTH STATUS WILL BE IDENTIFIED AND REPORTED TO PHYSICIAN FOR PROMPT INTERVENTION TO MINIMIZE ASSOCIATED RISKS THROUGHOUT CERTIFICATION PERIOD. Goal Provider Goal - PATIENT/CAREGIVER WILL VERBALIZE UNDERSTANDING OF EDUCATION PROVIDED ON MEDICATIONS BY THE END OF THE CERTIFICATION PERIOD. Goal Provider Goal - PATIENT WILL COMPLY WITH MEDICATION WHEN SKILLED NURSE PRE-POURS MEDICATION THROUGHOUT CERTIFICATION PERIOD. Goal Provider Goal - PATIENT WILL REMAIN SAFE WITHOUT DECOMPENSATION IN DEPRESSIVE CONDITION, WHILE MAINTAINING OPTIMAL LEVEL OF MENTAL HEALTH AND WELL BEING THROUGHOUT CERTIFICATION PERIOD. Goal Provider Goal - PATIENT/CAREGIVER WILL VERBALIZE/DEMONSTRATE SEIZURE PRECAUTIONS AND CARE OF PATIENT TO PROMOTE SAFETY AND PREVENT INJURY BY THE END OF THE CERTIFICATION PERIOD. Progress Notes Progress Notes <paragraph>[Visit Date: 2024 by DOROTHEA HEIN RN]:</paragraph><paragraph>07/22/24- LONG TERM VISIT MADE TO ASSESS MENTAL HEALTH STATUS SAFETY MEDICATION COMPLIANCE NO WILLING CAREGIVER TO ASSIST LONG HISTORY OF NONCOMPLIANCE . PATIENT CANCELED YESTERDAY'S APPOINTMENT BECAUSE HER NECK WAS SORE RESCHEDULED FOR 08/25/24 FOR MEMORY EVALUATION. PATIENT HAS SLEEP APNE[facility] TEST ON THURSDAY EVENING TRANSPORTATION ALREADY BOOKED PATIENT ENCOURAGED NOT TO CANCEL THIS APPOINTMENT ...</paragraph> <paragraph>[Visit Date: 2024 by DOROTHEA HEIN RN]:</paragraph><paragraph>07-20-24 LONG TERM VISIT MADE TO ASSESS MENTAL HEALTH STATUS SAFETY MEDICATION COMPLIANCE PATIENT HAD TRANSPLANT WORKER APPOINTMENT TO HAVE A BIOPSY OF HER THYROID DONE. PATIENT IS VERY TIRED SHE SAID SHE DIDN'T SLEEP LAST NIGHT PLANS TO GO TAKE A NAP PATIENT DENIES ANY PAIN AFTER HAVING THE BIOPSY DONE. HE WILL FIND OUT THE RESULTS IN 2 WEEKS WHEN SHE GOES BACK TO SEE THE DOCTOR. PATIENT COMPLIANT WITH PREFILLED MEDICATIONS FROM [facility]. ...</paragraph> Encounters Start Date/Time End Date/Time Encounter Type Admission Type Attending [facility] Care Department Encounter ID Discharge Date Discharge Status Discharge Condition Discharge Reason Percent Goals Met 2024-07-20 00:00:00 2024-09-17 00:00:00 Outpatient RECERTIFIC ATDOROTHEA ZHANG [facility] [id number]
--- OUTSIDE RECORDS SUMMARY | 2024-07-25 21:13 | XMS_ITS | Encounter Summary ---
Author Organization [facility], Address [address] [place] [address] Phone Care Team Providers Care Director Hris Name Role Phone Chito Todd MD Primary Care Provider [phone] Encounter Details Date Type Department Care Team (Late st Contact Info) Description 07/02/2022 Documentation Only [facility], - [address] [place] [id number] Lakesha Lawson FNP [address] [place], [place] Social History Tobacco Use Types Packs/Day Years [...] on file Sexual Orientation Not on file documented as of this encounter Plan of Treatment Not on file documented as of this encounter Visit Diagnoses Not on filedocumented in this encounter Care Teams Director Hris Relationship Specialty Start Date End Date Chito Todd MD [address] [place] [address] PCP - General Internal Medicine 10/08/22 documented as of this encounter
--- OUTSIDE RECORDS SUMMARY | 2024-07-25 21:13 | XMS_ITS | Clinical Summary ---
Author Organization [facility] Address [address] [place] [address] Care Team Providers Care Tin Flopper Name Role Phone Simone De La Cruz DO Primary Care Provider [phone] Social History Tobacco Use Types Packs/Day Years Used Date Smoking Tobacco: Never Assessed Comments Unknown Sex and Gender Information Value Date Recorded Sex Assigned at Not on file Legal Sex Female 2:00 AM EST Gender Identity Not on file Sexual Orientation Not on file Plan of Treatment Health Maintenance Due Date Last Done Comments Breast Cancer Screening 1962 DTaP,Tdap,and Td Vaccines (1 - Tdap) 1981 Cervical Cancer Screening: P ap Smear 1983 Pneumococcal Vaccine: 50+ Ye ars (1 of 1 - PCV) 2012 Zoster Vaccines (1 of 2) 2012 COVID-19 Vaccine ( - 2023-2 5 season) 2023 Influenza Vaccine (Season Ended) 2024 RSV Immunization Adult Patie nts (1 - 1-dose 75+ series) 2037 HIB Vaccines Aged Out No longer eligi ble based on patient's age to complete this topic HPV Vaccines Aged Out No longer eligi ble based on patient's age to complete this topic Hepatitis A Vaccines Aged Out No long er eligible based on patient's age to complete this topic Hepatitis B Vaccines Aged Out No long er eligible based on patient's age to complete this topic IPV Vaccines Aged Out No longer eligi ble based on patient's age to complete this topic MMR Vaccines Aged Out No longer eligi ble based on patient's age to complete this topic Meningococcal ACWY Vaccine Aged Out N o longer eligible based on patient's age to complete this topic Meningococcal B Vaccine Aged Out No l onger eligible based on patient's age to complete this topic Pneumococcal Vaccine: Pediat rics (0 to 5 Years) and At-Risk Patients (6 to 64 Years) Aged Out No longer eligible b ased on patient's age to complete this topic RSV Immunization Patients Un asher 20 months Aged Out No longer eligible b ased on patient's age to complete this topic Varicella Vaccines Aged Out No longer eligible based on patient's age to complete this topic Care Teams Tin Flopper Relationship Specialty Start Date End Date Simone De La Cruz DO PCP - General 01/04/15
--- OUTSIDE RECORDS SUMMARY | 2024-07-25 21:13 | XMS_ITS | Data Portability ---
Author Organization [place] - [facility], FORMERLY NAMED [facility] Address [address] [place] [id number] Care Team Providers Care Community Service Aide Name Role Phone [facility] Primary Care Provider Assessment Encounter Date Assessment Date Assessment LastModified by Organization Details LastModified Time 04/19/2020 04/19/2020 DDX: COVID, dehydration, electrolyte derangement, UTI, Pt has ongoing nausea, vomiting and diarrhea. Pt given anti-emetics with no effect and ongoing nausea, vomiting. IV access challenging and unable to give fluids. Pt had continued episodes of diarrhea. ISTAT labs demonstrate glucose of 57 - pt not tolerating PO and symptomatic without IV access. 911 called for transport to ED. Report given to [facility]. Not available 04/19/2020 14:41:25 Plan of Treatment Reminders Order Date Submit Date Provider Last Modified By Organization Details Last Modified Time Details Appointments None recorded. Lab BMP + ionized calcium, serum or plasma 2020 021 [email or web address] [facility], [address] [facility], [place], [address], 17:46:01 Referral None recorded. Procedures None recorded. Surgeries None recorded. Imaging None recorded. Medication Orders Zofran ODT 4 mg disintegr ating tablet 2020 021 [email or web address] Not available 11:42:30 Zofran 4 mg tablet 2020 021 INTERFACE Not available 14:12:15 Patient TargetsNo targets recorded. Patient Instructions Encounter Date Encounter Id Patient Instructions Last Modified By Organization Details Last Modified Time 04/19/2020 [id number] [email or web address], vomiting and diarrhea. We gave you zofran under your tongue. We tried to give you IV fluids but we could not get access to give you fluids. We tested your blood on scene. Your labs showed We are sending labs to [facility]. You should continue to drink fluids in small amounts. If you have further nausea, vomiting, diarrhea or feel worse, call 911 and go to the emergency department. Acute Nausea and Vomiting/Diarrhea BASIC INFORMATION Acute nausea and vomiting often start suddenly, worsen quickly, and last a few hours to 24 hours. Nausea and vomiting most often occur together, although they can occur alone. Cases of acute nausea and vomiting are often from gastrointestinal viruses such as norovirus, rotavirus and influenza. Less often it can be caused by toxins released from food that ? goes bad? as well as some types of bacteria and parasites. Diarrhea can also occur. Your nurse practitioner will conduct a careful history to help determine if you have one of the more serious causes. The cause of your nausea and vomiting may be unknown. INSTRUCTIONS Medicines: 1) Anti-nausea: You may have been given a prescription for an anti nausea medicine such as Zofran, Phenergan or Compazine. These can be used every 6-8 hours to help prevent nausea and vomiting. They can make you sleepy, so do not drive after taking them. Be sure to read all of the drug information from the pharmacy. 2) Tylenol: Low grade fever is common with acute nausea and vomiting. You may use Tylenol, per the recommended dosing on the label, to help control fever. If you have liver disease, do not use Tylenol. Ask your [employer] how to address fever if you are concerned about Tylenol use. 3) Anti-diarrheal medicines: These are available [id number], but in some cases are not recommended and can even worsen some cases of intestinal problems. Ask your [employer] if you should use them. In children under 12, the only anti-diarrheal that should be considered is Kaopectate. Diet: 1) For the next 12-24 hours, take clear liquids only. No dairy and no caffeinated beverages. After you have not vomited for a complete hour (either with or without the help of the anti-nausea medicine), begin by taking one tablespoon of clear liquid every 15 minutes for one hour. If you are able to tolerate this, you may increase the amount to 2 tablespoons every hour for the next 2 hours. 2) Clear liquids such as gatorade, pedialyte or broth are recommended because of the electrolytes and sugars that will help replenish the losses from vomiting and diarrhea. 3) If you are able to tolerate clear liquids as instructed above, you may begin to take a bland diet. Plain pasta/noodles or toast are suggestions. If you have had diarrhea, bananas, rice and applesauce are suggested as these can help make the stools more solid. Avoid greasy, fatty or fried foods FOLLOW UP You should make an appointment to see your primary care provider within 24 hours or sooner for worsening condition as described below. If you do not have a primary care doctor, you should follow up with one of the PCP suggestions from [facility]. SEEK CARE IMMEDIATELY IF: 1) You are still unable to tolerate any oral intake after 24 hours 2) You have blood in your vomit or stool 3) You develop severe abdominal pain that does not go away after an episode of vomiting or diarrhea 4) You have severe dizziness, heart palpitations or are passing out 5) You develop severe muscle cramps or weakness 6) You have not made urine in over 24 hours If you develop any new or worsening symptoms and need after hours care, please go to nearest ER and/or call 911. If you have additional concerns or develop a change in your condition between 8am-10pm, please call [facility] at [phone] to help navigate your care. Thank you for your visit with [facility] today. You were seen today for abdominal pain, nausea, vomiting and/or diarrhea. Medications may have been administered and lab tests may have been performed. At this time, we do not see evidence of a serious surgical or infectious cause of your symptoms. However, lab tests and an evaluation cannot always exclude appendicitis or other serious causes of abdominal pain. Please see a medical professional in 12-24 hours to be re-examined. Seek immediate medical attention for increased pain, vomiting or fever. If you develop any new or worsening symptoms and need after hours care, please go to nearest ER and/or call 911. If you have additional concerns or develop a change in your condition between 8am-10pm, please call [facility] at [phone] to help navigate your care. Not available 04/19/2020 14:22:08 Reason for Referral None Reported. Procedures Surgical History Date Name Laterality Status Provider Name and Address Organization Details Recorded Time 04/19/19 21 Venipuncture - completed DEISY BAH, KARLIE [address], [place], [address], [place] [facility] 04/19/2020 14:04:01 Imaging Results None recorded. Procedure Notes None recorded. Medical Equipment None Reported. Allergies Allergen ID Allergen Name Allergen Category Reaction Reaction Severity Criticality Documentation Date Start Date Code Code System Note Provider Name and Address Organization Details Recorded Time 715490 Bactrim medicatio n Not available Not available Not available 04/19/2020 90938 9 RxNorm DEISY BAH NP [address], [facility] [place], [address], [place] [facility] 13:25:05 064305 Wellbutri n medicatio n Not available Not available Not available 04/19/2020 82611 RxNorm DEISY BAH NP [address], [facility] [place], [address], [place] [facility] 13:25:11 178895 oxycodone medicatio n Not available Not available Not available 04/19/2020 7804 RxNorm DEISY OLVIN, KARLIE [address], [facility] [place], [address], [place] [facility] 13:25:18 Medications Name Sig Start Date Stop Date Status Note LastModified by Organization Details LastModified Time multivitamin tablet TK 1 T PO QAM active Not Available Not Available No t Available losartan 50 mg tablet TK 1 T PO QD active Not Available Not Available No t Available primidone 50 mg tablet TK 2 TS PO TID active Not Available Not Available No t Available prednisone 10 mg tablet active Not Available Not Available Not Available gabapentin 600 mg tablet TK 1 T PO BID active Not Available Not Available No t Available albuterol sulfate 2.5 mg/3 mL (0.083 %) solution for nebulization active Not Available Not Available Not Available ondansetron HCl 8 mg tablet TK 1 T PO Q 8 H FOR 5 DAYS PRN active Not Available Not Available No t Available olanzapine 5 mg tablet TK 1 T PO HS active Not Available Not Available No t Available hydroxyzine HCl 50 mg tablet TK 1 T PO QAM THEN TK 2 TS PO QPM active Not Available Not Available Not Available divalproex 500 mg tablet,delay ed release TAKE 1 TABLET BY MOUTH TWICE A DAY. active Not Available Not Available No t Available olanzapine 7.5 mg tablet active Not Available Not Available Not Available Zofran 4 mg tablet Take 1 tablet every 6-8 hours by oral route as needed. 2020 active Not Available Not Available Not Avai lable propranolol 10 mg tablet TK 1 T PO TID active Not Available Not Available No t Available clonidine HCl 0.2 mg tablet TK 1 T PO HS active Not Available Not Available No t Available meclizine 25 mg tablet TK 1 T PO TID active Not Available Not Available No t Available Zofran ODT 4 mg disintegrati ng tablet one ODT administere d on scene. Time administere d: 1340 2020 active Not Available Not Available Not Avai lable pantoprazole 40 mg tablet,delay ed release TAKE 1 TABLET BY MOUTH EVERY MORNING active Not Available Not Available No t Available montelukast 10 mg tablet TAKE 1 TABLET BY MOUTH EVERY MORNING. active Not Available Not Available No t Available ipratropium bromide 0.02 % solution for inhalation active Not Available Not Available N ot Available hydroxyzine pamoate 25 mg capsule TAKE 1 CAPSULE 2 TIMES A DAY FOR ANXIETY AND 2 CAPS AT BEDTIME active Not Available Not Available N ot Available escitalopram 10 mg tablet TK 1 T PO QD active Not Available Not Available No t Available escitalopram 20 mg tablet TK 1 T PO QAM WC active Not Available Not Available No t Available Combivent Respimat 20 mcg-100 mcg/actuatio n solution for inhalation INL 1 PUFF ITL Q 4 H PRN active Not Available Not Available No t Available Breo Ellipta 100 mcg-25 mcg/dose powder for inhalation INL 1 PUFF ITL D active Not Available Not Available No t Available Spiriva Respimat 2.5 mcg/actuatio n solution for inhalation INL 2 PFS ITL D active Not Available Not Available No t Available Afluria Qd 2019- (36 mos up)(PF)60 mcg (15 mcg x4)/0.5 mL IM syringe ADM 0.5ML IM UTD active Not Available Not Available No t Available Tab-A-Amparo 400 mcg tablet TK 1 T PO QAM active Not Available Not Available No t Available Vitals Date Recorded Body temperature Oxygen saturation Oxygen saturation in Arterial blood by Pulse oximetry Respiratory rate Heart rate Systolic blood pressure Diastolic blood pressure Provider Name and Address Organization Details Last Updated DateTime 99.9 [degF] 92 % 92 % 20 /min 97 /min 140 mm[Hg] 76 mm[Hg] Not Available [facility] 13:27:10 Social History Question Answer Notes LastModified by Organizat ion Details LastModified Time Tobacco Smoking Status Current Every Day Smoker DEISY BAH NP [address] [place], [address], [place] [facility] 04/19/2020 13:24:19 How Much Tobacco Do You Smoke? 0.25 PPD Information not available 04/19/2020 Sex: Unknown Functional Status None recorded. Mental Status None recorded. Family History Nothing Reported. Medical History No medical history recorded. Gynecological HistoryNo gynecological history recorded. Obstetrics History GPAL:G 0 P 0 0 0 0 Past Encounters Encounter ID Performer Location Encounter Start Date Encounter Closed Date Diagnosis/Indication Diagnosis SNOMED-CT Code Diagnosis ICD10 Code Diagnosis Note [id number] DEISY BAH NP FOR[facility] NAMED [facility] [address] [place] [address] 04/19/2020 13:20:11 04/20/2020 19:00:53 Diarrhea 55775141 R19.7 Nausea, vo miting and diarrhea 0052225 R11.2 Hypoglycemia 455546917 E 16.2 Health Concerns Section Related Observation LastModified by Organization Detai ls LastModified Time None Recorded Concern Status LastModified by Organization Details LastModified Time None Recorded Advance Directives Directive None Recorded Payers Insurance Date Sequence Insurance Name Policy Number Policy Navarro Covered Member ID Navarro Member ID Guarantor Name 04/19/2020 1 [employer] (MEDICARE REPLACEMENT HMO) [id number] Sandy Neo [id number] Sandy Neo 04/19/2020 1 [employer] (MEDICARE REPLACEMENT HMO) [id number] Sandy Neo [id number] Sandy Neo 04/19/2020 1 *SELF PAY* Sandy Neo [id number] Sandy Neo 04/19/2020 2 [place] [facility] Sandy Neo [id number] Sandy Neo Notes Date Note Type Note Provider Name and Address Organization Details Recorded Time 04/19/2020 text/html 60 year-old female with history of epilepsy, depression, asthma, COPD, GERD, who calls to her home for evaluation of diarrhea, nausae, vomiting. This began about 3 days ago. She has had multiple bouts of diarrhea daily -too numerous to count- she reports she has been vomiting every day and not keeping anything down.She has had fevers around 101. She denies any shortness of breath, chest pain, but feels lightheaded with getting up. She has been having shakes. She denies alcohol use or drugs. She smokes cigarettes but has not smoked marijuana in days.Her diarrhea has been dark orange in color. She denies any blood or black stools. DEISY BAH, KARLIE [facility] [address], [place], [address], [place] - [facility] 04/19/2020 14:42:03 OBGyn Episode No OBEpisode recorded.
--- OUTSIDE RECORDS SUMMARY | 2024-07-25 21:13 | XMS_ITS | Encounter Summary ---
Author Organization [facility], Address [address] [place] [address] Phone Care Team Providers Care Outpatient Case Manager Name Role Phone Chito Todd MD Primary Care Provider [phone] Encounter Details Date Type Department Care Team (Late st Contact Info) Description 10/06/2022 Documentation Only [facility], - [address] [place] [phone] Jose Kaye MD Social History Tobacco Use Types Packs/Day Years [...] on filedocumented in this encounter Care Teams Outpatient Case Manager Relationship Specialty Start Date End Date Chito Todd MD [address] [place] [id number] PCP - General Internal Medicine 10/08/22 documented as of this encounter
== END ==
LOC: HO.SL 19:30
PROVIDERS: Visit Provider Nurse Practitioner Family
DX: G47.33 Obstructive sleep apnea (adult) (pediatric) (principal); R06.83 Snoring; G47.19 Other hypersomnia
CPT/HCPCS: 95810

== ENCOUNTER → 2024-07-25 21:14 | Outpatient (BNV) | payer MEDICARE, SELFPAY | PROVIDERS: Visit Provider Psychiatry & Neurology Neurology | DX: R06.83 Snoring (principal) | CPT/HCPCS: 95810 ==

== ENCOUNTER 2024-10-18 10:10 | Outpatient (AMB) | payer MEDICARE, SELFPAY ==
[2024-10-18 10:22] VITALS: BP 110/86; PULSE 71; O2SAT 97; BMI 28.6
--- NOTE | 2024-10-18 10:22 | MHC.OFFVIS ---
Vital Signs 10/18/24 10:22 Height 4 ft 11 in Weight 141 lb 8 oz BMI 28.6 BP 110/86 Blood Pressure Location Lt brachial Position Sitting Pulse 71 Pulse Source Pulse Oximeter Pulse Oximetry (%) 97 Oxygen Delivery Method Room Air Intake Visit Reasons: Follow Up Intake Note: Patient last seen 11/07/22 for KEMAL no showed to sleep study X2. no labs done lvm for patient to call back regarding labs. Allergies guaifenesin (From Mucinex) Allergy (Intermediate, Verified 10/18/24 10:26) Vomiting acetaminophen (ACETAMINOPHEN) Allergy (Unknown, Verified 10/18/24 10:26) VOMIT bupropion (From WELLBUTRIN) Allergy (Unknown, Verified 10/18/24 10:26) HALLUCINATIONS codeine (CODEINE) Allergy (Unknown, Verified 10/18/24 10:26) RASH metronidazole (METRONIDAZOLE) Allergy (Unknown, Verified 10/18/24 10:26) UNKNOWN oxycodone (OXYCODONE) Allergy (Unknown, Verified 10/18/24 10:26) RASH sulfamethoxazole (SULFAMETHOXAZOLE) Allergy (Unknown, Verified 10/18/24 10:26) UNKNOWN tramadol (TRAMADOL) Allergy (Unknown, Verified 10/18/24 10:26) UNKNOWN Medication List - Last Reconciled 10/18/24 by SRIDHAR Quinonez apixaban (Eliquis) 5 mg PO BID aripiprazole 15 mg PO DAILY ascorbic acid (vitamin C) 250 mg PO DAILY 30 days cholecalciferol (vitamin D3) 1 cap PO DAILY clonidine HCl 1 tab PO BEDTIME escitalopram oxalate 1 tab PO DAILY ferrous sulfate 324 mg PO DAILY 30 days [id number]-[id number]-[id number] 200-62.5-25 mcg (Trelegy Ellipta) 1 inh inhalation DAILY gabapentin 600 mg PO BID 28 days gabapentin 300 mg PO DAILY 30 days hydroxyzine HCl 1 tab PO DAILY hydroxyzine HCl 1 tab PO BEDTIME levetiracetam 750 mg PO Q12H 28 days lorazepam 1 tab PO DAILY PRN olanzapine 1 tab PO BEDTIME primidone 150 mg (3 x 50 mg) PO TID 30 days propranolol 10 mg PO TID umeclidinium 62.5 mcg/actuation (Incruse Ellipta) 1 puff inhalation DAILY zolpidem 5 mg PO BEDTIME PRN HPI Comments Details: 64-yr-old female presents for f/u visit for seizure, tremor, KEMAL. Pt last seen by myself in 2022. Pt reports she had a recent [facility] admission- states she got depressed and did something I shouldn't have . States her mood is better since returning home. Patient states she was started on risperidone-believe she is taking 20 mg at bedtime. And states her olanzapine dose was decreased. She is f/b psychiatry and a therapist. Patient states her nurse had suggested she try a new medication, but she is not sure which medication. Pt denies any recent seizure activity. She is complaint w/ Gabapentin 600mg bid and Keppra 750mg bid. She continues to have tremor, now in both arms and legs, at rest and with action. Pt states the tremor is symmetric. Pt states the tremor is worse w/ activity- will drop and spill things. She states primidone and gabapentin help, but effect wears off before next dose. States her sense of smell is terrible for quite some time. Some lightheadedness upon standing. Can be prone to constipation- manages w/ bowel regimen. Back may feel stiff. Walking w/ walker. Has had a few falls at home, losing her balance if walking w/o her walker. Denies other involuntary movements. She hears voices- they speak to her. She states she is not sleeping well- waking up 3-4 x's per night- just wakes up. She does sleep w/ her head elevated- to help her asthma s/s. Her legs are restless at night. She is complaint w/ iron supplement. Recent in-lab PSG was inconclusive- AHI was 0/hr and PLMS was not observed, however pt only slept for 2 hrs during the study. She states she forgot to take all of her bedtime emdications as she thought she was going to be late to the appointment. [facility] Medical History HTN (hypertension) Surgical History H/O colonoscopy H/O endoscopy S/P bilateral foot surgery Family History Mother Cancer Diabetes Father Cancer Social History Alcohol intake: former Patient Tobacco Use Status: Former Tobacco user Substance Use Type: Marijuana Physical Exam Vital Signs: Last Vital Signs Pulse 71 10/18/24 10:22 BP 110/86 10/18/24 10:22 Pulse Ox 97 10/18/24 10:22 Oxygen Delivery Method Room Air 10/18/24 10:22 BMI result Body Mass Index 28.6 Const General: cooperative and no acute distress Orientation/consciousness: patient oriented x3 HEENT Head: Yes normocephalic Resp Effort & Inspection: normal respiratory effort and able to speak in complete sentences Neuro Other: Alert and oriented with some short-term memory lapses-most specifically with medication names/doses. Facial expression: Slightly decreased Voice: Intact Tremor: BUE, left greater than right, rest, postural, kinetic tremor BRANDY: BUE intact Fine finger movements: Decreased fluidity on left Foot taps: Decreased fluidity on left Tone: BUE, left greater than right, tightness and elbow, right patellar tightness Gait: Stands quickly, slight stoop, but steady gait with a walker. General: patient oriented x3 and CN's II-XI intact bilaterally Cognition (Neuro): normal cognition Psych Appearance: grossly normal Mental Status: mental status grossly normal Speech and movement: Clear speech present Affect: normal affect Attitude: cooperative Thought process: Normal thought process present Thought content: Normal thought content present Assessment & Plan Assessment & Plan (1) Seizure: Code(s): R56.9 - Unspecified convulsions Category: Medical (2) Essential tremor: Code(s): G25.0 - Essential tremor Category: Medical (3) RLS (restless legs syndrome): Code(s): G25.81 - Restless legs syndrome Category: Medical (4) Anemia: Code(s): D64.9 - Anemia, unspecified Category: Medical Qualifiers: Anemia type: unspecified type Qualified Code(s): D64.9 - Anemia, unspecified (5) KEMAL (obstructive sleep apnea): Comment: Last HST and PSG inconclusive, though limited sleep time was recorded. Code(s): G47.33 - Obstructive sleep apnea (adult) (pediatric) Category: Medical Plan We will reach out to patient's nurse to clarify what medication was being proposed, as well as to clarify patient's current medication regimen. RN Patient advised to undergo brain MRI with and without contrast, to assess for secondary etiologies of worsening tremor, left-sided tone, auditory hallucinations. For seizure: Continue Keppra 750mg bid. Continue Gabapentin 600mg qam, 300mg q afternoon, 600mg qhs- for seizure control and tremor. For tremor: Continue Primidone 150mg TID. Continue Propranolol- would not increase further d/t dx of asthma. Hold Henry-Trio d/t seizure activity. Most recent HST and in-lab PSG- did not show evidence of sleep apnea or Periodic limb movement of sleep (PLMS), however sleep time recorded was limited For now, Continue CPAP. Previously shared sleep education resources with patient's, such as Say Tash to Insomnia by Dr Dann Peng, Why your sleep is boken.. by Dr Pop Morillo, or similar CBTi resources. Continue iron supplement w/ vit c. We will request recent labs from PCP office Will follow-up upon review of above and patient to follow-up in clinic in 6 months or sooner prn. Orders: Orders MR head/brain wo/w con Today R25.1 - Tremor, unspecified, R44.0 - Auditory hallucinations, R56.9 - Unspecified convulsions Scribe Plan - Not visible on output: Reviewed possible medication side effects, including but not limited to drowsiness, dizziness. Coding Level of Care Code Est Pt Level 4 (39614) Diagnoses Seizure R56.9 Essential tremor G25.0 RLS (restless legs syndrome) G25.81 Anemia, unspecified type D64.9 Anemia type: unspecified type KEMAL (obstructive sleep apnea) G47.33
--- OUTSIDE RECORDS SUMMARY | 2024-10-18 10:45 | XMS_ITS | Encounter Summary ---
Author Organization [facility], Address [address] [place] [address] Phone Care Team Providers Care Supervisor Prop Making Name Role Phone Chito Todd MD Primary Care Provider [phone] Encounter Details Date Type Department Care Team (Late st Contact Info) Description 07/02/2022 Documentation Only [facility], - [address] Ay[address] [place] [id number] Lakesha Lawson FNP [address], [place] Social History Tobacco Use Types Packs/Day [...] on filedocumented in this encounter Care Teams Supervisor Prop Making Relationship Specialty Start Date End Date Chito Todd MD [address] [place] [address] PCP - General Internal Medicine 10/08/22 documented as of this encounter
--- OUTSIDE RECORDS SUMMARY | 2024-10-18 10:45 | XMS_ITS | Clinical Summary ---
Author Organization [facility] Address [address] [place] [address] Care Team Providers Care Preflight Inspector Name Role Phone Simone De La Cruz DO Primary Care Provider [phone] Social History Tobacco Use Types Packs/Day Years [...] Vaccine ( - 2023-2 5 season) 2023 Depression Screening 03/16/2024 Influenza Vaccine (#1) 2024 RSV Immunization Adult Patie nts (1 [...] age to complete this topic Care Teams Preflight Inspector Relationship Specialty Start Date End Date Simone De La Cruz DO PCP - General 01/04/15
--- OUTSIDE RECORDS SUMMARY | 2024-11-20 20:00 | XMS_ITS | Clinical Summary ---
Author Organization Unknown Care Team Providers Care Churn Operator Margarine Name Role Phone KAT MARCELO PERSONALIZED LIVING MANAGER, SHARYN Unavailable Palmira HEIN RN, DOROTHEA Unavailable Unavailable Payers Payer Name Policy Type Policy Number Effective Date Expira tion Date [employer] MEDICARE ADVANTAGE FFS [id number] [facility] [id number] MEDICARE - [facility] - [place] [id number] Problems Condition Name Condition Details Condition Category Status Onset Date Resolution Date Last Treatment Date Treating Clinician Comments DEPRESSION, UNSPECIFIED Active 09-09 00:00: 00 ANXIETY DISORDER, UNSPECIFIED Active 09-09 00:00: 00 BORDERLINE PERSONALITY DISORDER Active 09-09 00:00: 00 SUICIDAL IDEATIONS Active 09-09 00:00: 00 CHRONIC OBSTRUCTIVE PULMONARY DISEASE, UNSPECIFIED Active 09-09 00:00: 00 EPILEPSY, UNSP, NOT INTRACTABLE, WITHOUT STATUS EPILEPTICUS Active 09-09 00:00: 00 SLEEP APNEA, UNSPECIFIED Active 09-09 00:00: 00 OTHER PULMONARY EMBOLISM WITHOUT ACUTE COR PULMONALE Active 09-09 00:00: 00 REPEATED FALLS Active 09-09 00:00: 00 VERTIGO OF CENTRAL ORIGIN Active 09-09 00:00: 00 ESSENTIAL (PRIMARY) HYPERTENSION Active 09-09 00:00: 00 TREMOR, UNSPECIFIED Active 09-09 00:00: 00 NONINFECTIVE GASTROENTERI TIS AND COLITIS, UNSPECIFIED Active 09-09 00:00: 00 OTHER PSYCHOACTIVE SUBSTANCE ABUSE, UNCOMPLICATE D Active 09-09 00:00: 00 UNSTEADINESS ON FEET Active 09-09 00:00: 00 DYSPHAGIA, UNSPECIFIED Active 09-09 00:00: 00 NICOTINE DEPENDENCE, UNSPECIFIED, UNCOMPLICATE D Active 09-23 00:00: 00 Allergies, Adverse Reactions, Alerts Allergy Name Allergy Type Status Severity Reaction(s) Onset Date Inactive Date Treating Clinician Comments BACTRIM Propensity to adverse reactions Active 09-25 15:51: 12 BUPROPRION Propensity to adverse reactions Active 09-25 15:51: 40 BUPROPION HCL Propensity to adverse reactions Active 09-25 15:51: 52 OXYCODONE Propensity to adverse reactions Active 09-25 15:52: 02 SULAMETHOXAZ OLE Propensity to adverse reactions Active 09-25 15:52: 13 ACETAMINOPHE N Propensity to adverse reactions Active 09-25 15:52: 21 ACETAMINOPHE N-CODEINE Propensity to adverse reactions Active 09-25 15:52: 33 FLAGYL Propensity to adverse reactions Active 09-25 15:52: 47 NICODERM CQ Propensity to adverse reactions Active 09-25 15:52: 58 TRAMADOL Propensity to adverse reactions Active 09-25 15:53: 18 Medications Ordered Medication Name Filled Medication Name Start Date Stop Date Current Medication? Ordering Clinician Indication Dosage Frequency Signature (SIG) Comments Components Dupixent 300 mg/2 mL subcutaneou s syringe 04-17 00:00: 00 01-19 23:59 :00 No [id number] 300 mg EVERY OTHER WEEK 300 mg EVERY OTHER WEEK (route: subcutaneo us) Med Classific ation: Dermatolo gical amlodipine 2.5 mg tablet 04-02 00:00: 00 10-28 23:59 :00 No [id number] 2.5 mg EVERY AM 2.5 mg EVERY AM (route: oral) Med Classific ation: Cardiovas cular Therapy Agents Trelegy Ellipta 200 mcg-62.5 mcg-25 mcg powder for inhalation 04-02 00:00: 00 04-23 23:59 :00 No [id number] 200 mcg DAILY 200 mcg DAILY (route: inhalation ) Med Classific ation: Respirato ry Therapy Agents prednisone 10 mg tablet -17 00:00: 00 04-23 23:59 :00 No [id number] 10 mg DAILY 10 mg DAILY (route: oral) Med Classific ation: Endocrine gabapentin 300 mg capsule 12 00:00: 00 10-27 23:59 :00 No [id number] 1 capsule NOON 1 capsule NOON (route: oral) Med Classific ation: Central Nervous System Agents gabapentin 600 mg tablet 03-27 00:00: 00 10-27 23:59 :00 No [id number] 2 tablet 2 TIMES DAILY 2 tablet 2 TIMES DAILY (route: oral) Med Classific ation: Central Nervous System Agents olanzapine 5 mg tablet 03-27 00:00: 00 06-23 23:59 :00 No [id number] 5 mg BEDTIME 5 mg BEDTIME (route: oral) Med Classific ation: Central Nervous System Agents montelukast 10 mg tablet 03-26 00:00: 00 04-23 23:59 :00 No [id number] 10 mg BEDTIME 10 mg BEDTIME (route: oral) Med Classific ation: Respirato ry Therapy Agents zileuton ER 600 mg tablet,exte nded release 12hr mphase 03-26 00:00: 00 01-19 23:59 :00 No [id number] 600 mg 2 TIMES DAILY 600 mg 2 TIMES DAILY (route: oral) Med Classific ation: Respirato ry Therapy Agents aripiprazol e 15 mg tablet 03-25 00:00: 00 01-19 23:59 :00 No [id number] 0.5 tablet BEDTIME 0.5 tablet BEDTIME (route: oral) Med Classific ation: Central Nervous System Agents clonidine HCl 0.1 mg tablet 03-25 00:00: 00 10-27 23:59 :00 No [id number] 0.1 mg BEDTIME 0.1 mg BEDTIME (route: oral) Med Classific ation: Cardiovas cular Therapy Agents escitalopra m 10 mg tablet 03-25 00:00: 00 01-19 23:59 :00 No [id number] 10 mg DAILY 10 mg DAILY (route: oral) Med Classific ation: Central Nervous System Agents hydroxyzine HCl 25 mg tablet 1-10 00:00: 00 01-19 23:59 :00 No [id number] 25 mg 3 TIMES DAILY 25 mg 3 TIMES DAILY (route: oral) Med Classific ation: Central Nervous System Agents levetiracet am 750 mg tablet - 00:00: 00 01-19 23:59 :00 No [id number] 750 mg 2 TIMES DAILY 750 mg 2 TIMES DAILY (route: oral) Med Classific ation: Central Nervous System Agents pantoprazol e 40 mg tablet,boni yed release 03-25 00:00: 00 10-27 23:59 :00 No [id number] 40 mg 2 TIMES DAILY 40 mg 2 TIMES DAILY (route: oral) Med Classific ation: Gastroint estinal Therapy Agents primidone 50 mg tablet 03-25 00:00: 00 01-19 23:59 :00 No [id number] 50 mg 3 TIMES DAILY 50 mg 3 TIMES DAILY (route: oral) Med Classific ation: Central Nervous System Agents Eliquis 5 mg tablet -08 00:00: 00 01-19 23:59 :00 No [id number] 5 mg 2 TIMES DAILY 5 mg 2 TIMES DAILY (route: oral) Med Classific ation: Hematolog ical Agents magnesium oxide 400 mg (241.3 mg magnesium) tablet -08 00:00: 00 01-19 23:59 :00 No [id number] 0.5 tablet DAILY 0.5 tablet DAILY (route: oral) Med Classific ation: Electroly te Balance-N utritiona l Products multivitami n tablet 2-08 00:00: 00 01-19 23:59 :00 No [id number] 1 tablet DAILY 1 tablet DAILY (route: oral) Med Classific ation: Electroly te Balance-N utritiona l Products meclizine 25 mg tablet 4-10 00:00: 00 01-19 23:59 :00 No [id number] 1 tablet 3 TIMES DAILY 1 tablet 3 TIMES DAILY (route: oral) Med Classific ation: Gastroint estinal Therapy Agents Ambien 5 mg tablet 08-11 00:00: 00 01-19 23:59 :00 No [id number] 1 tablet BEDTIME 1 tablet BEDTIME (route: oral) Med Classific ation: Central Nervous System Agents olanzapine 5 mg tablet 08-11 00:00: 00 10-27 23:59 :00 No [id number] 1 tablet EVERY PM 1 tablet EVERY PM (route: oral) Med Classific ation: Central Nervous System Agents albuterol sulfate concentrate 2.5 mg/0.5 mL solution for nebulizatio n 09-30 00:00: 00 01-19 23:59 :00 No [id number] 1 vial, nebuliz er 4 TIMES DAILY 1 vial, nebulizer 4 TIMES DAILY (route: inhalation ) Med Classific ation: Respirato ry Therapy Agents amoxicillin 500 mg capsule 09-30 00:00: 00 10-10 23:59 :00 No [id number] 500 mg 2 TIMES DAILY 500 mg 2 TIMES DAILY (route: oral) Med Classific ation: Anti-Infe ctive Agents ondansetron HCl 4 mg tablet 10-05 00:00: 00 10-27 23:59 :00 No [id number] 1 tablet EVERY 8 HOURS 1 tablet EVERY 8 HOURS (route: oral) Med Classific ation: Gastroint estinal Therapy Agents amlodipine 5 mg tablet 10-27 00:00: 00 01-19 23:59 :00 No [id number] 5 mg DAILY 5 mg DAILY (route: oral) Med Classific ation: Cardiovas cular Therapy Agents Combivent Respimat 20 mcg-100 mcg/actuati on solution for inhalation 10-27 00:00: 00 01-19 23:59 :00 No [id number] 20 puff 4 TIMES DAILY 20 puff 4 TIMES DAILY (route: inhalation ) Med Classific ation: Respirato ry Therapy Agents Flonase Allergy Relief 50 mcg/actuati on nasal spray,suspe nsion 10-27 00:00: 00 01-19 23:59 :00 No [id number] 50 spray DIRECTED 50 spray DIRECTED (route: nasal) Med Classific ation: Respirato ry Therapy Agents gabapentin 300 mg capsule 10-27 00:00: 00 01-19 23:59 :00 No [id number] 300 capsule 3 TIMES DAILY 300 capsule 3 TIMES DAILY (route: oral) Med Classific ation: Central Nervous System Agents ipratropium 0.5 mg-albutero l 3 mg (2.5 mg base)/3 mL nebulizatio n soln 10-27 00:00: 00 01-19 23:59 :00 No [id number] Per instruc tions NEEDED Per instructio ns NEEDED (route: inhalation ) Med Classific ation: Respirato ry Therapy Agents omeprazole 40 mg capsule,del ayed release 10-27 00:00: 00 01-19 23:59 :00 No [id number] 40 mg DAILY 40 mg DAILY (route: oral) Med Classific ation: Gastroint estinal Therapy Agents prednisone 10 mg tablet 10-27 00:00: 00 01-19 23:59 :00 No [id number] 10 mg DAILY 10 mg DAILY (route: oral) Med Classific ation: Endocrine Singulair 10 mg tablet 10-27 00:00: 00 01-19 23:59 :00 No [id number] 10 mg DAILY 10 mg DAILY (route: oral) Med Classific ation: Respirato ry Therapy Agents Trelegy Ellipta 100 mcg-62.5 mcg-25 mcg powder for inhalation 10-27 00:00: 00 01-19 23:59 :00 No [id number] 100 inhalat ion DAILY 100 inhalation DAILY (route: inhalation ) Med Classific ation: Respirato ry Therapy Agents aripiprazol e 15 mg tablet 2023-03-08 00:00: 00 09-21 23:59 :00 No [id number] 15 mg BEDTIME 15 mg BEDTIME (route: oral) Med Classific ation: Central Nervous System Agents docusate sodium 100 mg capsule 2023-03 00:00: 00 09-21 23:59 :00 No [id number] 100 mg 2 TIMES DAILY 100 mg 2 TIMES DAILY (route: oral) Med Classific ation: Gastroint estinal Therapy Agents Eliquis 5 mg tablet 2023-03 00:00: 00 09-21 23:59 :00 No [id number] 5 mg 2 TIMES DAILY 5 mg 2 TIMES DAILY (route: oral) Med Classific ation: Hematolog ical Agents escitalopra m 10 mg tablet 2023-03 00:00: 00 09-21 23:59 :00 No [id number] 10 mg DAILY 10 mg DAILY (route: oral) Med Classific ation: Central Nervous System Agents gabapentin 300 mg capsule 2023-03 00:00: 00 03-14 23:59 :00 No [id number] 300 mg 3 TIMES DAILY 300 mg 3 TIMES DAILY (route: oral) Med Classific ation: Central Nervous System Agents levetiracet am 750 mg tablet 2023-03 00:00: 00 09-21 23:59 :00 No [id number] 750 mg 2 TIMES DAILY 750 mg 2 TIMES DAILY (route: oral) Med Classific ation: Central Nervous System Agents magnesium 400 mg (as magnesium oxide) capsule 2023-03 00:00: 00 05-16 23:59 :00 No [id number] 400 mg DAILY 400 mg DAILY (route: oral) Med Classific ation: Electroly te Balance-N utritiona l Products meclizine 25 mg tablet 2023-03 00:00: 00 04-29 23:59 :00 No [id number] 25 mg NEEDED 25 mg NEEDED (route: oral) Med Classific ation: Gastroint estinal Therapy Agents montelukast 10 mg tablet 2023-03 00:00: 00 04-18 23:59 :00 No [id number] 10 mg EVERY PM 10 mg EVERY PM (route: oral) Med Classific ation: Respirato ry Therapy Agents omeprazole 40 mg capsule,del ayed release 2023-03 00:00: 00 08-15 23:59 :00 No [id number] 40 mg DAILY 40 mg DAILY (route: oral) Med Classific ation: Gastroint estinal Therapy Agents prednisone 10 mg tablet 2023-03 00:00: 00 09-21 23:59 :00 No [id number] 10 mg DAILY 10 mg DAILY (route: oral) Med Classific ation: Endocrine primidone 50 mg tablet 2023-03 00:00: 00 08-15 23:59 :00 No [id number] 50 mg 3 TIMES DAILY 50 mg 3 TIMES DAILY (route: oral) Med Classific ation: Central Nervous System Agents zolpidem 5 mg tablet 2023-03 00:00: 00 09-21 23:59 :00 No [id number] 5 mg BEDTIME 5 mg BEDTIME (route: oral) Med Classific ation: Central Nervous System Agents amlodipine 5 mg tablet 2023-03 00:00: 00 09-21 23:59 :00 No [id number] 1 tablet DAILY 1 tablet DAILY (route: oral) Med Classific ation: Cardiovas cular Therapy Agents gabapentin 300 mg capsule 2023-03 00:00: 00 09-21 23:59 :00 No [id number] 1 capsule NOON 1 capsule NOON (route: oral) Med Classific ation: Central Nervous System Agents gabapentin 600 mg tablet 03-17 00:00: 00 09-21 23:59 :00 No [id number] 1 tablet 2 TIMES DAILY 1 tablet 2 TIMES DAILY (route: oral) Med Classific ation: Central Nervous System Agents hydroxyzine pamoate 50 mg capsule 2023-03 2 00:00: 00 09-21 23:59 :00 No [id number] 1 capsule 2 TIMES DAILY 1 capsule 2 TIMES DAILY (route: oral) Med Classific ation: Central Nervous System Agents losartan 50 mg tablet 2023-03 2 00:00: 00 09-21 23:59 :00 No [id number] 1 tablet DAILY 1 tablet DAILY (route: oral) Med Classific ation: Cardiovas cular Therapy Agents multivitami n tablet 2023-03 230 00:00: 00 09-21 23:59 :00 No [id number] 1 tablet DAILY 1 tablet DAILY (route: oral) Med Classific ation: Electroly te Balance-N utritiona l Products olanzapine 10 mg tablet 2023-03 230 00:00: 00 04-06 23:59 :00 No [id number] 1 tablet BEDTIME 1 tablet BEDTIME (route: oral) Med Classific ation: Central Nervous System Agents pantoprazol e 40 mg tablet,boni yed release 2023-03 00:00: 00 09-21 23:59 :00 No [id number] 1 tablet 2 TIMES DAILY 1 tablet 2 TIMES DAILY (route: oral) Med Classific ation: Gastroint estinal Therapy Agents propranolol 10 mg tablet 2023-03 00:00: 00 09-21 23:59 :00 No [id number] 1 tablet 3 TIMES DAILY 1 tablet 3 TIMES DAILY (route: oral) Med Classific ation: Cardiovas cular Therapy Agents Vitamin D3 25 mcg (1,000 unit) capsule 2023-03 00:00: 00 09-21 23:59 :00 No [id number] 1 capsule BEDTIME 1 capsule BEDTIME (route: oral) Med Classific ation: Electroly te Balance-N utritiona l Products zileuton ER 600 mg tablet,exte nded release 12hr mphase 2023-03 2 00:00: 00 05-16 23:59 :00 No [id number] 1 tablet 2 TIMES DAILY 1 tablet 2 TIMES DAILY (route: oral) Med Classific ation: Respirato ry Therapy Agents Dupixent 300 mg/2 mL subcutaneou s pen injector 2023-03 2 00:00: 00 09-21 23:59 :00 No [id number] 300 mg EVERY OTHER WEEK 300 mg EVERY OTHER WEEK (route: subcutaneo us) Med Classific ation: Dermatolo gical albuterol sulfate 2.5 mg/3 mL (0.083 %) solution for nebulizatio n 03-22 00:00: 00 09-21 23:59 :00 No [id number] Per instruc tions 4 TIMES DAILY Per instructio ns 4 TIMES DAILY (route: inhalation ) Med Classific ation: Respirato ry Therapy Agents Combivent Respimat 20 mcg-100 mcg/actuati on solution for inhalation - 00:00: 00 09-21 23:59 :00 No [id number] 1 puff 4 TIMES DAILY 1 puff 4 TIMES DAILY (route: inhalation ) Med Classific ation: Respirato ry Therapy Agents fluticasone propionate 50 mcg/actuati on nasal spray,suspe nsion 03-22 00:00: 00 09-21 23:59 :00 No [id number] 1 spray DAILY 1 spray DAILY (route: nasal) Med Classific ation: Respirato ry Therapy Agents ipratropium 0.5 mg-albutero l 2.5 mg/2.5 mL solution for nebulizatio n 03-22 00:00: 00 09-21 23:59 :00 No [id number] Per instruc tions 4 TIMES DAILY Per instructio ns 4 TIMES DAILY (route: inhalation ) Med Classific ation: Respirato ry Therapy Agents Trelegy Ellipta 200 mcg-62.5 mcg-25 mcg powder for inhalation 03-22 00:00: 00 09-21 23:59 :00 No [id number] 1 inhalat ion DAILY 1 inhalation DAILY (route: inhalation ) Med Classific ation: Respirato ry Therapy Agents roflumilast 500 mcg tablet 2-03 00:00: 00 09-21 23:59 :00 No [id number] 1 mcg DAILY 1 mcg DAILY (route: oral) Med Classific ation: Respirato ry Therapy Agents ferrous gluconate 324 mg (37.5 mg iron) tablet 2-14 00:00: 00 09-21 23:59 :00 No [id number] 1 tablet DAILY 1 tablet DAILY (route: oral) Med Classific ation: Electroly te Balance-N utritiona l Products meclizine 12.5 mg tablet 2-14 00:00: 00 09-21 23:59 :00 No [id number] 1 tablet 3 TIMES DAILY 1 tablet 3 TIMES DAILY (route: oral) Med Classific ation: Gastroint estinal Therapy Agents zileuton ER 600 mg tablet,exte nded release 12hr mphase 08 00:00: 00 07-11 23:59 :00 No [id number] 2 tablet 2 TIMES DAILY 2 tablet 2 TIMES DAILY (route: oral) Med Classific ation: Respirato ry Therapy Agents Mag Glycinate 100 mg tablet 3-10 00:00: 00 06-27 23:59 :00 No [id number] 3 tablet DAILY 3 tablet DAILY (route: oral) Med Classific ation: Electroly te Balance-N utritiona l Products primidone 50 mg tablet 07-20 00:00: 00 09-21 23:59 :00 No [id number] 3 tablet 3 TIMES DAILY 3 tablet 3 TIMES DAILY (route: oral) Med Classific ation: Central Nervous System Agents vilazodone 10 mg tablet 08-15 00:00: 00 09-21 23:59 :00 No [id number] 0.5 tablet DAILY 0.5 tablet DAILY (route: oral) Med Classific ation: Central Nervous System Agents amlodipine 5 mg tablet 09-23 00:00: 00 Yes [id number] 1 tablet DAILY 1 tablet DAILY (route: oral) Med Classific ation: Cardiovas cular Therapy Agents aripiprazol e 20 mg tablet 09-23 00:00: 00 Yes [id number] 1 tablet BEDTIME 1 tablet BEDTIME (route: oral) Med Classific ation: Central Nervous System Agents Combivent Respimat 20 mcg-100 mcg/actuati on solution for inhalation 09-23 00:00: 00 Yes [id number] 1 puff 4 TIMES DAILY 1 puff 4 TIMES DAILY (route: inhalation ) Med Classific ation: Respirato ry Therapy Agents docusate sodium 100 mg tablet 09-23 00:00: 00 Yes [id number] 1 tablet 2 TIMES DAILY 1 tablet 2 TIMES DAILY (route: oral) Med Classific ation: Gastroint estinal Therapy Agents Dupixent 300 mg/2 mL subcutaneou s pen injector 09-23 00:00: 00 Yes [id number] 2 mL EVERY OTHER WEEK 2 mL EVERY OTHER WEEK (route: subcutaneo us) Med Classific ation: Dermatolo gical Eliquis 5 mg tablet 09-23 00:00: 00 Yes [id number] 1 tablet 2 TIMES DAILY 1 tablet 2 TIMES DAILY (route: oral) Med Classific ation: Hematolog ical Agents escitalopra m 5 mg tablet 09-23 00:00: 00 Yes [id number] 3 tablet DAILY 3 tablet DAILY (route: oral) Med Classific ation: Central Nervous System Agents ferrous gluconate 324 mg (37.5 mg iron) tablet 09-23 00:00: 00 Yes [id number] 1 tablet DAILY 1 tablet DAILY (route: oral) Med Classific ation: Electroly te Balance-N utritiona l Products fluticasone 100 mcg-salmete rol 50 mcg/dose blistr powdr for inhalation 09-23 00:00: 00 Yes [id number] 1 inhalat ion DAILY 1 inhalation DAILY (route: inhalation ) Med Classific ation: Respirato ry Therapy Agents gabapentin 300 mg capsule 09-23 00:00: 00 Yes [id number] 1 capsule NOON 1 capsule NOON (route: oral) Med Classific ation: Central Nervous System Agents gabapentin 600 mg tablet 09-23 00:00: 00 Yes [id number] 1 tablet 2 TIMES DAILY 1 tablet 2 TIMES DAILY (route: oral) Med Classific ation: Central Nervous System Agents hydroxyzine HCl 50 mg tablet 09-23 00:00: 00 Yes [id number] 1 tablet 2 TIMES DAILY 1 tablet 2 TIMES DAILY (route: oral) Med Classific ation: Central Nervous System Agents ipratropium 0.5 mg-albutero l 2.5 mg/2.5 mL solution for nebulizatio n 09-23 00:00: 00 Yes [id number] Per instruc tions 4 TIMES DAILY Per instructio ns 4 TIMES DAILY (route: inhalation ) Med Classific ation: Respirato ry Therapy Agents levetiracet am 750 mg tablet 09-23 00:00: 00 Yes [id number] 1 tablet 2 TIMES DAILY 1 tablet 2 TIMES DAILY (route: oral) Med Classific ation: Central Nervous System Agents losartan 50 mg tablet 09-23 00:00: 00 Yes [id number] 1 tablet DAILY 1 tablet DAILY (route: oral) Med Classific ation: Cardiovas cular Therapy Agents meclizine 25 mg tablet 09-23 00:00: 00 Yes 1 tablet 3 TIMES DAILY 1 tablet 3 TIMES DAILY (route: oral) Med Classific ation: Gastroint estinal Therapy Agents multivitami n tablet 09-23 00:00: 00 Yes 1 tablet DAILY 1 tablet DAILY (route: oral) Med Classific ation: Electroly te Balance-N utritiona l Products pantoprazol e 40 mg tablet,boni yed release 09-23 00:00: 00 Yes 1 tablet 2 TIMES DAILY 1 tablet 2 TIMES DAILY (route: oral) Med Classific ation: Gastroint estinal Therapy Agents prednisone 10 mg tablet 09-23 00:00: 00 Yes 1 tablet DAILY 1 tablet DAILY (route: oral) Med Classific ation: Endocrine primidone 50 mg tablet 09-23 00:00: 00 Yes 3 tablet 3 TIMES DAILY 3 tablet 3 TIMES DAILY (route: oral) Med Classific ation: Central Nervous System Agents propranolol 10 mg tablet 09-23 00:00: 00 Yes 1 tablet 3 TIMES DAILY 1 tablet 3 TIMES DAILY (route: oral) Med Classific ation: Cardiovas cular Therapy Agents roflumilast 500 mcg tablet 09-23 00:00: 00 Yes 1 tablet DAILY 1 tablet DAILY (route: oral) Med Classific ation: Respirato ry Therapy Agents Trelegy Ellipta 200 mcg-62.5 mcg-25 mcg powder for inhalation 09-23 00:00: 00 Yes 1 inhalat ion DAILY 1 inhalation DAILY (route: inhalation ) Med Classific ation: Respirato ry Therapy Agents vilazodone 10 mg tablet 09-23 00:00: 00 Yes 0.5 tablet DAILY 0.5 tablet DAILY (route: oral) Med Classific ation: Central Nervous System Agents Vitamin D3 25 mcg (1,000 unit) capsule 09-23 00:00: 00 Yes 1 capsule DAILY 1 capsule DAILY (route: oral) Med Classific ation: Electroly te Balance-N utritiona l Products zolpidem 5 mg tablet 09-23 00:00: 00 Yes 1 tablet BEDTIME 1 tablet BEDTIME (route: oral) Med Classific ation: Central Nervous System Agents prednisone 10 mg tablet 09-23 00:00: 00 Yes 1 tablet DAILY 1 tablet DAILY (route: oral) Med Classific ation: Endocrine Immunizations Ordered Immunization Name Filled Immunization Name Date Status Comments Refusal Reason INFLUENZA, TIV (INACTIVATED) 2023-11-16 00:00:00 Vital Signs Vital Name Observation Time Observation Value Commen ts Temperature 2024-10-14 14:40:00.000 97.8 [degF] Temperature 2024-10-12 14:25:00.000 97.8 [degF] Temperature 2024-10-11 12:55:00.000 97.4 [degF] Temperature 2024-10-10 14:53:00.000 98.7 [degF] Temperature 2024-10-07 14:15:00.000 97.8 [degF] Temperature 2024-10-06 14:06:00.000 97.4 [degF] Temperature 2024-10-05 14:30:00.000 97.8 [degF] Temperature 2024-10-04 14:42:00.000 97.4 [degF] Temperature 2024-09-30 12:25:00.000 97.4 [degF] Temperature 2024-09-29 15:41:00.000 97.6 [degF] Temperature 2024-09-28 13:59:00.000 97.6 [degF] Temperature 2024-09-27 14:27:00.000 97.1 [degF] Temperature 2024-09-26 16:22:00.000 97.6 [degF] Temperature 2024-09-23 14:40:00.000 97.4 [degF] BMI (%) 2024-09-23 14:40:00.000 28 kg/m2 Height 2024-09-23 14:40:00.000 59 [in_us] Pulse 2024-10-14 14:40:00.000 68 /min Pulse 2024-10-12 14:25:00.000 68 /min Pulse 2024-10-11 12:55:00.000 74 /min Pulse 2024-10-07 14:15:00.000 80 /min Pulse 2024-10-06 14:06:00.000 72 /min Pulse 2024-10-05 14:30:00.000 68 /min Pulse 2024-10-04 14:42:00.000 74 /min Pulse 2024-10-03 14:07:00.000 68 /min Pulse 2024-09-30 12:25:00.000 76 /min Pulse 2024-09-28 13:59:00.000 78 /min Pulse 2024-09-27 14:27:00.000 75 /min Pulse 2024-09-26 16:22:00.000 64 /min Pulse 2024-09-23 14:40:00.000 70 /min O2 Saturation (%) 2024-10-14 14:40:00.000 96 % O2 Saturation (%) 2024-10-12 14:26:00.000 96 % O2 Saturation (%) 2024-10-11 13:02:00.000 97 % O2 Saturation (%) 2024-10-10 14:54:00.000 98 % O2 Saturation (%) 2024-10-07 14:16:00.000 96 % O2 Saturation (%) 2024-10-06 14:07:00.000 96 % O2 Saturation (%) 2024-10-05 14:30:00.000 96 % O2 Saturation (%) 2024-10-04 14:43:00.000 97 % O2 Saturation (%) 2024-10-03 14:08:00.000 96 % O2 Saturation (%) 2024-09-30 12:25:00.000 96 % O2 Saturation (%) 2024-09-28 13:59:00.000 96 % O2 Saturation (%) 2024-09-26 16:22:00.000 93 % O2 Saturation (%) 2024-09-23 15:53:00.000 96 % Respirations 2024-10-14 14:40:00.000 16 /min Respirations 2024-10-12 14:25:00.000 16 /min Respirations 2024-10-11 12:55:00.000 18 /min Respirations 2024-10-10 14:53:00.000 16 /min Respirations 2024-10-07 14:15:00.000 16 /min Respirations 2024-10-06 14:06:00.000 18 /min Respirations 2024-10-05 14:30:00.000 16 /min Respirations 2024-10-04 14:42:00.000 18 /min Respirations 2024-10-03 14:07:00.000 16 /min Respirations 2024-09-30 12:25:00.000 18 /min Respirations 2024-09-29 15:41:00.000 16 /min Respirations 2024-09-28 13:59:00.000 16 /min Respirations 2024-09-27 14:27:00.000 16 /min Respirations 2024-09-26 16:22:00.000 16 /min Respirations 2024-09-23 14:40:00.000 16 /min Weight (lbs) 2024-10-12 14:27:00.000 140 [lb_av] Weight (lbs) 2024-09-23 14:40:00.000 140 [lb_av] Systolic Blood Pressure 2024-10-14 14:40:00.000 112 mm [Hg] Systolic Blood Pressure 2024-10-12 14:25:00.000 100 mm [Hg] Systolic Blood Pressure 2024-10-11 12:55:00.000 108 mm [Hg] Systolic Blood Pressure 2024-10-10 14:53:00.000 110 mm [Hg] Systolic Blood Pressure 2024-10-07 14:15:00.000 100 mm [Hg] Systolic Blood Pressure 2024-10-06 14:06:00.000 116 mm [Hg] Systolic Blood Pressure 2024-10-05 14:30:00.000 112 mm [Hg] Systolic Blood Pressure 2024-10-04 14:42:00.000 114 mm [Hg] Systolic Blood Pressure 2024-10-03 14:07:00.000 100 mm [Hg] Systolic Blood Pressure 2024-09-30 12:25:00.000 112 mm [Hg] Systolic Blood Pressure 2024-09-29 15:41:00.000 110 mm [Hg] Systolic Blood Pressure 2024-09-28 13:59:00.000 100 mm [Hg] Systolic Blood Pressure 2024-09-27 14:27:00.000 104 mm [Hg] Systolic Blood Pressure 2024-09-26 16:22:00.000 120 mm [Hg] Systolic Blood Pressure 2024-09-23 14:40:00.000 110 mm [Hg] Diastolic Blood Pressure 2024-10-14 14:40:00.000 60 mm [Hg] Diastolic Blood Pressure 2024-10-12 14:25:00.000 60 mm [Hg] Diastolic Blood Pressure 2024-10-11 12:55:00.000 62 mm [Hg] Diastolic Blood Pressure 2024-10-10 14:53:00.000 60 mm [Hg] Diastolic Blood Pressure 2024-10-07 14:15:00.000 60 mm [Hg] Diastolic Blood Pressure 2024-10-06 14:06:00.000 64 mm [Hg] Diastolic Blood Pressure 2024-10-05 14:30:00.000 60 mm [Hg] Diastolic Blood Pressure 2024-10-04 14:42:00.000 62 mm [Hg] Diastolic Blood Pressure 2024-10-03 14:07:00.000 60 mm [Hg] Diastolic Blood Pressure 2024-09-30 12:25:00.000 62 mm [Hg] Diastolic Blood Pressure 2024-09-29 15:41:00.000 60 mm [Hg] Diastolic Blood Pressure 2024-09-28 13:59:00.000 60 mm [Hg] Diastolic Blood Pressure 2024-09-27 14:27:00.000 68 mm [Hg] Diastolic Blood Pressure 2024-09-26 16:22:00.000 70 mm [Hg] Diastolic Blood Pressure 2024-09-23 14:40:00.000 60 mm [Hg] Plan of Treatment Planned [...] HEALTH.] Future Scheduled Test SKILLED NU RSE WILL MAINTAIN SITUATIONAL AWARENESS FOR SAFETY AND WILL NOTIFY CLINICAL SCHEME TECHNICIAN AND PHYSICIAN/PROVIDER WITH ANY CHANGE IN CONDITION. [code = SKILLED NURSE WILL MAINTAIN SITUATIONAL AWARENESS FOR SAFETY AND WILL NOTIFY CLINICAL SCHEME TECHNICIAN AND PHYSICIAN/PROVIDER WITH ANY CHANGE IN CONDITION.] [...] AND FALL PREVENTION STRATEGIES.] Future Scheduled Test PATIENT KULKARNI S A RISK OF HOSPITALIZATION AND ED USE. SKILLED NURSE TO ESTABLISH SUPPORT MEASURES TO MINIMIZE RISK OF HOSPITALIZATION AND ED USE, AND INSTRUCT PATIENT/CAREGIVER ON METHODS TO REDUCE AVOIDABLE HOSPITALIZATION AND ED USE. [code = PATIENT HAS A RISK OF HOSPITALIZATION AND ED USE. SKILLED NURSE TO ESTABLISH SUPPORT MEASURES TO MINIMIZE RISK OF HOSPITALIZATION AND ED USE, AND INSTRUCT PATIENT/CAREGIVER ON METHODS TO REDUCE AVOIDABLE HOSPITALIZATION AND ED USE.] Future Scheduled Test SKILLED NU RSE TO [...] EXACERBATION FOR EARLY INTERVENTION OF COMPLICATIONS EACH [code = SKILLED NURSE FOR O/A OF GENERAL HEALTH STATUS OF PAIN, CARDIAC, RESPIRATORY, GASTROINTESTINAL, GENITOURINARY, SKIN, NEUROLOGIC, ENDOCRINE SYSTEMS TO IDENTIFY CHANGES ASSOCIATED WITH EXACERBATION FOR EARLY INTERVENTION OF COMPLICATIONS EACH ] Future Scheduled Test SKILLED NU RSE [...] TO PRE-POUR MEDICATION PER MEDICATION LIST WEEKLY USING MED MINDER [code = SKILLED NURSE TO PRE-POUR MEDICATION PER MEDICATION LIST WEEKLY USING MED MINDER ] Future Scheduled Test SKILLED NU RSE [...] INTERVENTION.] Future Scheduled Test SKILLED NU RSE FOR O/A AND SKILLED TEACHING OF COPING SKILLS TO MANAGE ANXIETY AND MAINTAIN SAFETY. [code = SKILLED NURSE FOR O/A AND SKILLED TEACHING OF COPING SKILLS TO MANAGE ANXIETY AND MAINTAIN SAFETY.] Future Scheduled Test SKILLED NU RSE FOR O/A OF CLIENT'S SLEEP PATTERNS. MAY TEACH INTERVENTIONS R/T ACQUIRING IMPROVED REST [code = SKILLED NURSE FOR O/A OF CLIENT'S SLEEP PATTERNS. MAY TEACH INTERVENTIONS R/T ACQUIRING IMPROVED REST] Future Scheduled Test MEDICATION S WILL BE HELD AND STORED IN MEDICATION SAFE. [code = MEDICATIONS WILL BE HELD AND STORED IN MEDICATION SAFE.] Future Scheduled Test SKILLED NU RSE TO INSTRUCT ON SAFETY MEASURES TO PREVENT INJURY SECONDARY TO SEIZURE DISORDER/IMPAIRED NEUROLOGICAL STATUS. [code = SKILLED NURSE TO INSTRUCT ON SAFETY MEASURES TO PREVENT INJURY SECONDARY TO SEIZURE DISORDER/IMPAIRED NEUROLOGICAL STATUS.] Goal Patient Goal - T O STAY OUT OF THE HOSPITAL TO ATTEND ALL SCHEDULED MD APPOINTMENTS Goal Provider Goal - A PLAN OF CARE WILL BE ESTABLISHED THAT MEETS PATIENT'S INTERMEDIATE NEEDS AND INCLUDES PATIENT GOAL FOR HOME HEALTH. Goal Provider Goal - PATIENT WILL REMAIN [...] PERIOD. Goal Provider Goal - PATIENT WILL HAVE SUPPORT MEASURES ESTABLISHED TO PREVENT HOSPITALIZATION AND ED USE AND PATIENT/CAREGIVER WILL VERBALIZE/DEMONSTRATE METHODS TO REDUCE AVOIDABLE HOSPITALIZATION AND ED USE BY END OF EPISODE. Goal Provider Goal - ALTERED MENTAL/BEHAVIORAL STATUS [...] PERIOD. Goal Provider Goal - PATIENT WILL BE ABLE TO PERFORM DAILY FUNCTIONS AND HAVE OPTIMAL IMPROVEMENT IN LEVEL OF ANXIETY THROUGHOUT CERTIFICATION PERIOD. Goal Provider Goal - PATIENT WILL REPORT AT LEAST 6-8 HOURS A NIGHT, RESTFUL SLEEP PATTERNS ACHIEVED USING THERAPEUTIC INTERVENTIONS BEFORE THE END OF THE CERTIFICATION PERIOD. Goal Provider Goal - MEDICATIONS WILL BE STORED IN MEDICATION SAFE FOR SAFETY. Goal Provider Goal - PATIENT/CAREGIVER WILL VERBALIZE/DEMONSTRATE SEIZURE PRECAUTIONS AND CARE OF PATIENT TO PROMOTE SAFETY AND PREVENT INJURY BY THE END OF THE CERTIFICATION PERIOD. Progress Notes Progress Notes <paragraph>[Visit Date: 2024 by DOROTHEA HEIN RN]:</paragraph><paragraph>10/14/24- [facility] MADE TO ASSESS MENTAL HEALTH STATUS SAFETY MEDICATION COMPLIANCE. NO FALLS OR SEIZURES REPORTED PATIENT COMPLIANT TAKING MEDICATIONS FROM THE MED MINDER PATIENT REMINDED SHE HAS 3 APPOINTMENTS NEXT WEEK PATIENT DENIES ANY CONSTIPATION OR PAIN FROM HEMORRHOIDS. PATIENT ENCOURAGED TO EAT HIGH FIBER DIET AND LOTS OF WATER ...</paragraph> <paragraph>[Visit Date: 2024 by DOROTHEA HEIN RN]:</paragraph><paragraph>10/12/24- [facility] MADE TO ASSESS MENTAL HEALTH STATUS SAFETY MEDICATION COMPLIANCE, RN SET UP MED MINDER ADDED EXTRA MEDICATIONS MISSING FOR MED MINDER INCLUDING COLACE AND MECLIZINE GABAPENTIN 300 MG IN NOON TIME. PATIENT WAS COMPLIANT WITH ALL PREFILLED MEDICATIONS THAT WERE SET UP IN THE MED MINDER. NO FALLS OR SEIZURES REPORTED. PATIENT DID GO TO HER CARDIOLOGY APPOINTMENT THIS MORNING FOR THE FOLLOW UP AFTER HAVING THE STRESS TEST. NO NEW MED CHANGES WERE MADE. ...</paragraph> Encounters Start Date/Time End Date/Time Encounter Type Admission Type Attending [facility] Facility Care Department Encounter ID Discharge Date Discharge Status Discharge Condition Discharge Reason Percent Goals Met 2024-09-23 00:00:00 2024-11-21 00:00:00 Outpatient DOROTHEA MAI [facility] [id number] 8.11
== END 2024-10-18 11:30 | disposition home or self-care (01) ==
LOC: HO.HSMS 10:11
PROVIDERS: Visit Provider Nurse Practitioner Family
DX: R56.9 Unspecified convulsions (principal); G25.0 Essential tremor; G25.81 Restless legs syndrome; D64.9 Anemia, unspecified; G47.33 Obstructive sleep apnea (adult) (pediatric)
CPT/HCPCS: 99214

== ENCOUNTER → 2024-10-18 10:10 | Outpatient (BNVA) | payer MEDICARE, SELFPAY | PROVIDERS: Visit Provider Nurse Practitioner Family | DX: G25.81 Restless legs syndrome (principal); G47.33 Obstructive sleep apnea (adult) (pediatric); D64.9 Anemia, unspecified; G25.0 Essential tremor; R56.9 Unspecified convulsions | CPT/HCPCS: 99212 ==

== ENCOUNTER → 2024-12-14 10:02 | Outpatient (BNV) | payer MEDICARE, SELFPAY | PROVIDERS: Visit Provider Radiology Diagnostic Radiology | DX: I67.82 Cerebral ischemia (principal); J34.89 Other specified disorders of nose and nasal sinuses | CPT/HCPCS: 70553 ==

== ENCOUNTER 2024-12-14 10:14 | Outpatient (REF) | payer MEDICARE, SELFPAY ==
--- NOTE | ~2024-12-14 | MR_ITS ---
EXAMINATION: MR BRAIN WITHOUT AND WITH CONTRAST CLINICAL INFORMATION: Tremor, unspecified. Falls. Seizure. Fatigue. COMPARISON: None available. Correlation made with CT head 03/30/2021. TECHNIQUE: Multiplanar, multisequence MRI of the brain was obtained before and after the intravenous administration of 6.5 mL Gadavist. Examination performed on a 1.5 Tiffany high-field Siemens unit. FINDINGS: There is no diffusion restriction. There is no intracranial hemorrhage, acute infarction, mass effect, or edema. Ventricles are mildly dilated out of proportion to sulcal and cisternal prominence, a nonspecific finding which most likely relates to mild central atrophy. A component of communicating hydrocephalus is not excluded. No shift of midline. No abnormal hemosiderin deposition is identified. There are a few scattered punctate and minimally confluent foci of white matter T2 hyperintensity in the periventricular, subcortical, and hemispheric deep white matter. These foci are nonspecific but statistically most likely relate to small vessel ischemic changes. No abnormal intra or extra-axial enhancement after the administration of contrast. Midline structures appear normally formed. The pituitary gland appears normal. Posterior fossa structures appear normal. Cerebellar tonsils are appropriately located. Major flow voids are preserved within the skull base. The globes and orbital contents demonstrate no abnormalities. Moderate circumferential mucosal thickening present in the left maxillary sinus, and small mucous retention cyst is present in the posterior right maxillary sinus. Mild mucosal thickening present in the sphenoid sinuses and left anterior ethmoid sinuses. The mastoids and tympanic cavities are normally aerated. Extracranial soft tissues demonstrate a 10 mm sebaceous cyst on the right cheek. No suspicious bone marrow changes are evident. Atlantoaxial joint demonstrates mild degenerative changes. MR/MR head/brain wo/w con IMPRESSION: 1. No evidence of intracranial hemorrhage, acute infarction, mass effect, edema, or abnormal enhancement. 2. Ventricles are dilated mildly out of proportion to sulcal and cisternal prominence, a finding most likely related to mild central atrophy. A component of communicating hydrocephalus is not excluded. 3. Mild changes of small vessel ischemia. 4. Mild to moderate paranasal sinus disease. Electronically signed by: Eusebio Bryson MD 12/14/2024 11:59 AM EDT
--- OUTSIDE RECORDS SUMMARY | 2024-12-14 11:33 | XMS_ITS ---
Author Organization [facility] Care Team Providers Care Human Capital Consultant Name Role Phone Lavelle Leary Unavailable Unavailable Keli, Whitney Unavailable Unavailable Levheim, Jaycee Unavailable Unavailable Allergies and adverse reactions Code CodeSystem Substance Reaction Severity StartDate Concern Status Tylenol Unknown 03/13/2021 active 35999 RXNORM traMADol Unknown 03/01/2021 active 7804 RXNORM Oxycodone Unknown 03/01/2021 active Flagyl Unknown 03/01/2021 active 2670 RXNORM Codeine Unknown 03/01/2021 active 75382 RXNORM buPROPion Unknown 03/01/2021 active Bactrim Unknown 03/01/2021 active Care Team Name Role Address Phone Organization Dates Lavelle Leary PCP [address], [address], [place] (Office): : [facility] 03/07/2021 - 04/03/2021 Whitney Dickey [address] [facility] [address], [place], [address], [place]Office[place] : [facility] 03/07/2021 - 04/03/2021 Jayceefaye Hernandez [address] [facility] [address], [place], [address], [place] (Office): [facility] 03/07/2021 - 04/03/2021 Goals Section Goals Description Status Target Date I will be/remain free of irena g related complications, including movement disorder, discomfort, hypotension, gait disturbance, constipation/impaction or cognitive/behavioral impairment through review date. Active 06/03/2021 I will have improved mood st ate (Specify: happier, calmer appearance, no s/sx of depression, anxiety or sadness) through the review date. Active 06/03/2021 I will be free from s/sx of complications of cardiac problems through the review date. Active 06/03/2021 I will be continent at all times through the nex t review date. Active 06/03/2021 I will be free from injury f rom seizure activity through the next review date. Active 06/03/2021 I will be free from s/sx of dehydration through next review date. Active 06/03/2021 I will be free of injury through the next review date. Active 06/03/2021 I will be offered drinks for hydration and snacks. I am on Heart Healthy, regular texture, thin liquid diet. I LIKE pink artificial sweetener. Active 06/03/2021 I will consume at least 75% of meals by the next review date. Active 06/03/2021 I will express my need to cr eate an advance directive if I change my mind. Active 06/03/2021 I will have intact skin, nitesh e of redness, blisters or discoloration by/through review date Active 06/03/2021 I will have no ill effects o r injuries related to side rail(s) Active 06/03/2021 I will improve current level of function in Bed Mobility, Transfers, Eating, Dressing, Toilet Use and Personal Hygiene, ADL Score through the review date Active 06/03/2021 I will maintain involvement in cognitive stimulation, social activities as desired through next review date. Active 2021 I will not have an interrupt ion in normal activities due to pain through the review date. Active 06/03/2021 I will remain free from comp lications of asthma through the next review date. Active 06/03/2021 My discharge goal is to retu rn home as soon as able. Active 06/03/2021 My mobility will be improved /restored by review date. Active 06/03/2021 Resident will not have a uri nary tract infection. Active 06/03/2021 Immunizations Immunization Status Vaccine Details Vaccine Code CodeSystem Date Notes Influenza completed Influenza, split virus, trivalent, injectable, contains preservative 141 CVX created date: 03/02/2021 administere d date: 01/14/2021 @ [facility] PCV13 (Pneumococcal Conjugate)Vaccine new pneumococcal conjugate vaccine, 13 valent 133 CVX created date: 03/02/2021 consent date: 03/03/2021 SARS-COV-2 (COVID-19) completed SARS-COV-2 (COVID-19) vaccine, mRNA, spike protein, LNP, preservative free, 10 mcg/0.2mL dose, chinedu-sucrose formulation Step 2 of Multi-step with next step required 218 CVX created date: 03/01/2021 administere d date: 11/01/2020 SARS-COV-2 (COVID-19) completed SARS-COV-2 (COVID-19) vaccine, mRNA, spike protein, LNP, preservative free, 10 mcg/0.2mL dose, chinedu-sucrose formulation Mfg: [employer] Step 1 of Multi-step with next step required 218 CVX created date: 03/01/2021 administere d date: 08/02/2020 Mental Status Section Date Assessment Total Score Description 04/03/2021 BIMS 15 cognitively int act CAM 0 No delirium ind icated PHQ-9 00 03/30/2021 CAM 0 No delirium ind icated Plan of Treatment Section Interventions Intervention Code Code System Display Name Proposed D ate Problems Problem # Description Date of onset Resolved Date Code CodeSystem Concern Status 1 ABNORMAL WEIGHT LOSS [address] active 2 UNSPECIFIED ASTHMA, UNCOMPLICATED [address] active 3 UNSPECIFIED PROTEIN-CALORIE MALNUTRITION [address] active 4 ACUTE KIDNEY FAILURE , UNSPECIFIED [address] active 5 ANEMIA, UNSPECIFIED [address] active 6 ANXIETY DISORDER, UNSPECIFIED [address] active 7 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 [address] active 8 CHRONIC OBSTRUCTIVE PULMONARY DISEASE, UNSPECIFIED [address] active 9 DIZZINESS AND GIDDINESS [address] active 10 DYSPHAGIA, ORAL PHASE [address] active 11 DYSPHAGIA, PHARYNGOESOPHAGEAL PHASE [address] active 12 DYSPHAGIA, UNSPECIFIED [address] active 13 EPILEPSY, UNSPECIFIE D, NOT INTRACTABLE, WITHOUT STATUS EPILEPTICUS [address] active 14 ESSENTIAL (PRIMARY) HYPERTENSION [address] active 15 GASTRO-ESOPHAGEAL REFLUX DISEASE WITHOUT ESOPHAGITIS [address] active 16 LEFT LOWER QUADRANT ABDOMINAL SWELLING, MASS AND LUMP [address] active 17 MAJOR DEPRESSIVE DISORDER, SINGLE EPISODE, UNSPECIFIED [address] active 18 MUSCLE WASTING AND ATROPHY, NOT ELSEWHERE CLASSIFIED, MULTIPLE SITES [address] active 19 NICOTINE DEPENDENCE, UNSPECIFIED, UNCOMPLICATED [address] active 20 OTHER ABNORMALITIES OF GAIT AND MOBILITY [address] active 21 OTHER DISORDERS OF ELECTROLYTE AND FLUID BALANCE, NOT ELSEWHERE CLASSIFIED [address] active 22 REPEATED FALLS [address] active Reason for Referral No Reasons for Referral Entered Social History Social History Observation Description Start Date End Date Code Code System Current Smoking Status Tobacco smoking consumption unknown 565040527 SNOMED CT Sex Assigned At Female 1960 01200-0 [facility] Gender Identity Sexual Orientation Vital Signs Code Code System Vitals Name Values and Units Timing Information 21390-4 LOINC Pain Level Value=0.0 04/03/2021 8462-4 LOINC Blood Pressure-Diastolic Value=81 Un its=mmHg 04/02/2021 8480-6 LOINC Blood Pressure-Systolic Tbkma=480 Un its=mmHg 04/02/2021 8867-4 LOINC Heart rate Value=64.0 Units=/min 9279-1 LOINC Respiratory Rate Value=18.0 Units=/m in 04/02/2021 8310-5 LOINC Body Temperature Value=98.2 Units= F 04/02/2021 86150-2 LOINC O2 % BldC Oximetry Value=98.0 Units= % 04/02/2021 13996-8 LOINC Weight Mxhzu=484.8 Units=Lbs 11/2021 8302-2 LOINC Height Value=65.0 Units=Inches 03/02/2021
--- OUTSIDE RECORDS SUMMARY | 2024-12-14 11:33 | XMS_ITS | Clinical Summary ---
Author Organization [facility] Address [address] [place] [address] Care Team Providers Care Customer Service Sales Associate Name Role Phone Simone De La Cruz DO Primary Care Provider [phone] Social History Tobacco Use Types Packs/Day Years [...] 2012 Zoster Vaccines (1 of 2) 2012 Depression Screening 03/16/2024 COVID-19 Vaccine (1 - 2023-2 5 season) 2024 Influenza Vaccine (#1) 2024 RSV Immunization Adult [...] age to complete this topic Care Teams Customer Service Sales Associate Relationship Specialty Start Date End Date Simone De La Cruz DO PCP - General 01/04/15
--- OUTSIDE RECORDS SUMMARY | 2024-12-14 11:34 | XMS_ITS | Encounter Summary ---
Author Organization [facility], Address [address] [place] [address] Phone Care Team Providers Care Non Clinical Advisor Name Role Phone Chito Todd MD Primary Care Provider [phone] Encounter Details Date Type Department Care Team (Late st Contact Info) Description 10/06/2022 Documentation Only [facility], - [place] [address] [place] [phone] Jose Kaye MD Social History Tobacco Use [...] on filedocumented in this encounter Care Teams Non Clinical Advisor Relationship Specialty Start Date End Date Chito Todd MD [address] [place] [id number] PCP - General Internal Medicine 10/08/22 documented as of this encounter
--- OUTSIDE RECORDS SUMMARY | 2024-12-14 11:34 | XMS_ITS | Clinical Summary ---
Author Organization [facility], Address [address] [address] Phone Care Team Providers Care Endodontist Name Role Phone Chito Todd MD Primary Care Provider [phone] Allergies Active Allergy Reactions Criticality Noted Date [...] if needed 2 Active Cholecalciferol 250 MCG (95954 UT) capsule Take 10,000 Units by mouth [...] Last PAP completed 1 year ago. Unclear [facility] history including an abnormal PAP with burning of warts. CT Abdomen/Pelvis showed no acute intraabdominal or intrapelvic process. There was no significant interval change in size of a cystic lesion in the left adnexa. - Encourage patient to follow up with [facility] upon discharge. Hypertensive disorder 05/13/20192022 Overview (06/10/2019): Last Assessment & Plan: BP 114/75 today - Continue Losartan 50 mg TAB daily - Continue Clonidine 0.2 mg nightly - Continue propranolol 10 mg TAB TID Tobacco use disorder 08/30/2017 10/06/2022 023 Overview (10/06/2022): Advised of connection between HPV [...] Vaccine: 50+ Years (3 of 3 - PCV20 or PCV21) 12/31/2015 10/18/2014, 10/18/2014, 12/30/2010, Additional history exists Influenza Vaccine (#1) 2024 , 01/10/2021, 12/07/2019, Additional history exists Pneumococcal Vaccine: Peds (0 to 5 Years) and At-Risk Patients (6 to 49 Years) Discontinued 10/18/2014, 10/18/2014, 12/30/2010, Additional history exists Hepatitis B Vaccine Aged Out No longe r eligible based on patient's age to complete this topic Insurance Medicaid [place] [employer] Commercial Care Teams Endodontist Relationship Specialty Start Date End Date Chito Todd MD [address] [place] [id number] PCP - General Internal Medicine 10/08/22
--- OUTSIDE RECORDS SUMMARY | 2024-12-14 11:34 | XMS_ITS | Encounter Summary ---
Author Organization [facility], Address [address] [place] [address] Phone Care Team Providers Care Forensic Materials Engineer Name Role Phone Chito Todd MD Primary Care Provider [phone] Encounter Details Date Type Department Care Team (Late st Contact Info) Description 07/02/2022 Documentation Only [facility], - [place] [address] [place] [phone] Lakesha Lawson FNP [address] [place], [place] Social History Tobacco Use Types Packs/Day [...] on filedocumented in this encounter Care Teams Forensic Materials Engineer Relationship Specialty Start Date End Date Chito Todd MD [address] [place] [address] PCP - General Internal Medicine 10/08/22 documented as of this encounter
--- OUTSIDE RECORDS SUMMARY | 2025-01-19 20:00 | XMS_ITS | Clinical Summary ---
Author Organization Unknown Care Team Providers Care Manager Monitoring Name Role Phone KAT MARCELO TRANSMISSION SUPERVISOR, SHARYN Unavailable Palmira HEIN RN, DOROTHEA Unavailable Unavailable Payers Payer Name Policy Type Policy Number Effective Date Expira tion Date [employer] MEDICARE ADVANTAGE FFS [id number] [facility] [id number] MEDICARE - [facility] - PD [id number] Problems Condition Name Condition Details Condition Category [...] 04-17 00:00: 00 01-19 23:59 :00 No [id number] 300 mg EVERY OTHER WEEK 300 mg EVERY OTHER WEEK (route: subcutaneo us) Med Classific ation: Dermatolo gical amlodipine 2.5 mg tablet 04-02 00:00: 00 10-28 23:59 :00 No [id number] 2.5 mg EVERY AM 2.5 mg EVERY AM (route: oral) Med Classific ation: Cardiovas cular Therapy Agents Trelegy Ellipta 200 mcg-62.5 mcg-25 mcg powder for inhalation 04-02 00:00: 00 04-23 23:59 :00 No [id number] 200 mcg DAILY 200 mcg DAILY (route: inhalation ) Med Classific ation: Respirato ry Therapy Agents prednisone 10 mg tablet -17 00:00: 00 04-23 23:59 :00 No [id number] 10 mg DAILY 10 mg DAILY (route: oral) Med Classific ation: Endocrine gabapentin 300 mg capsule 12 00:00: 00 10-27 23:59 :00 No [id number] 1 capsule NOON 1 capsule NOON (route: oral) Med Classific ation: Central Nervous System Agents gabapentin 600 mg tablet 03-27 00:00: 00 10-27 23:59 :00 No [id number] 2 tablet 2 TIMES DAILY 2 tablet 2 TIMES DAILY (route: oral) Med Classific ation: Central Nervous System Agents olanzapine 5 mg tablet 03-27 00:00: 00 06-23 23:59 :00 No [id number] 5 mg BEDTIME 5 mg BEDTIME (route: oral) Med Classific ation: Central Nervous System Agents montelukast 10 mg tablet 03-26 00:00: 00 04-23 23:59 :00 No [id number] 10 mg BEDTIME 10 mg BEDTIME (route: oral) Med Classific ation: Respirato ry Therapy Agents zileuton ER 600 mg tablet,exte nded release 12hr mphase 03-26 00:00: 00 01-19 23:59 :00 No [id number] 600 mg 2 TIMES DAILY 600 mg 2 TIMES DAILY (route: oral) Med Classific ation: Respirato ry Therapy Agents aripiprazol e 15 mg tablet 03-25 00:00: 00 01-19 23:59 :00 No [id number] 0.5 tablet BEDTIME 0.5 tablet BEDTIME (route: oral) Med Classific ation: Central Nervous System Agents clonidine HCl 0.1 mg tablet 03-25 00:00: 00 10-27 23:59 :00 No [id number] 0.1 mg BEDTIME 0.1 mg BEDTIME (route: oral) Med Classific ation: Cardiovas cular Therapy Agents escitalopra m 10 mg tablet 03-25 00:00: 00 01-19 23:59 :00 No [id number] 10 mg DAILY 10 mg DAILY (route: oral) Med Classific ation: Central Nervous System Agents hydroxyzine HCl 25 mg tablet 1-10 00:00: 00 01-19 23:59 :00 No [id number] 25 mg 3 TIMES DAILY 25 mg 3 TIMES DAILY (route: oral) Med Classific ation: Central Nervous System Agents levetiracet am 750 mg tablet - 00:00: 00 01-19 23:59 :00 No [id number] 750 mg 2 TIMES DAILY 750 mg 2 TIMES DAILY (route: oral) Med Classific ation: Central Nervous System Agents pantoprazol e 40 mg tablet,boni yed release 03-25 00:00: 00 10-27 23:59 :00 No [id number] 40 mg 2 TIMES DAILY 40 mg 2 TIMES DAILY (route: oral) Med Classific ation: Gastroint estinal Therapy Agents primidone 50 mg tablet 03-25 00:00: 00 01-19 23:59 :00 No [id number] 50 mg 3 TIMES DAILY 50 mg 3 TIMES DAILY (route: oral) Med Classific ation: Central Nervous System Agents Eliquis 5 mg tablet -08 00:00: 00 01-19 23:59 :00 No [id number] 5 mg 2 TIMES DAILY 5 mg 2 TIMES DAILY (route: oral) Med Classific ation: Hematolog ical Agents magnesium oxide 400 mg (241.3 mg magnesium) tablet -08 00:00: 00 01-19 23:59 :00 No [id number] 0.5 tablet DAILY 0.5 tablet DAILY (route: oral) Med Classific ation: Electroly te Balance-N utritiona l Products multivitami n tablet 2-08 00:00: 00 01-19 23:59 :00 No [id number] 1 tablet DAILY 1 tablet DAILY (route: oral) Med Classific ation: Electroly te Balance-N utritiona l Products meclizine 25 mg tablet 4-10 00:00: 00 01-19 23:59 :00 No [id number] 1 tablet 3 TIMES DAILY 1 tablet 3 TIMES DAILY (route: oral) Med Classific ation: Gastroint estinal Therapy Agents Ambien 5 mg tablet 08-11 00:00: 00 01-19 23:59 :00 No [id number] 1 tablet BEDTIME 1 tablet BEDTIME (route: oral) Med Classific ation: Central Nervous System Agents olanzapine 5 mg tablet 08-11 00:00: 00 10-27 23:59 :00 No [id number] 1 tablet EVERY PM 1 tablet EVERY PM (route: oral) Med Classific ation: Central Nervous System Agents albuterol sulfate concentrate 2.5 mg/0.5 mL solution for nebulizatio n 09-30 00:00: 00 01-19 23:59 :00 No [id number] 1 vial, nebuliz er 4 TIMES DAILY 1 vial, nebulizer 4 TIMES DAILY (route: inhalation ) Med Classific ation: Respirato ry Therapy Agents amoxicillin 500 mg capsule 09-30 00:00: 00 10-10 23:59 :00 No [id number] 500 mg 2 TIMES DAILY 500 mg 2 TIMES DAILY (route: oral) Med Classific ation: Anti-Infe ctive Agents ondansetron HCl 4 mg tablet 10-05 00:00: 00 10-27 23:59 :00 No [id number] 1 tablet EVERY 8 HOURS 1 tablet EVERY 8 HOURS (route: oral) Med Classific ation: Gastroint estinal Therapy Agents amlodipine 5 mg tablet 10-27 00:00: 00 01-19 23:59 :00 No [id number] 5 mg DAILY 5 mg DAILY (route: oral) Med Classific ation: Cardiovas cular Therapy Agents Combivent Respimat 20 mcg-100 mcg/actuati on solution for inhalation 10-27 00:00: 00 01-19 23:59 :00 No [id number] 20 puff 4 TIMES DAILY 20 puff 4 TIMES DAILY (route: inhalation ) Med Classific ation: Respirato ry Therapy Agents Flonase Allergy Relief 50 mcg/actuati on nasal spray,suspe nsion 10-27 00:00: 00 01-19 23:59 :00 No [id number] 50 spray DIRECTED 50 spray DIRECTED (route: nasal) Med Classific ation: Respirato ry Therapy Agents gabapentin 300 mg capsule 10-27 00:00: 00 01-19 23:59 :00 No [id number] 300 capsule 3 TIMES DAILY 300 capsule 3 TIMES DAILY (route: oral) Med Classific ation: Central Nervous System Agents ipratropium 0.5 mg-albutero l 3 mg (2.5 mg base)/3 mL nebulizatio n soln 10-27 00:00: 00 01-19 23:59 :00 No [id number] Per instruc tions NEEDED Per instructio ns NEEDED (route: inhalation ) Med Classific ation: Respirato ry Therapy Agents omeprazole 40 mg capsule,del ayed release 10-27 00:00: 00 01-19 23:59 :00 No [id number] 40 mg DAILY 40 mg DAILY (route: oral) Med Classific ation: Gastroint estinal Therapy Agents prednisone 10 mg tablet 10-27 00:00: 00 01-19 23:59 :00 No [id number] 10 mg DAILY 10 mg DAILY (route: oral) Med Classific ation: Endocrine Singulair 10 mg tablet 10-27 00:00: 00 01-19 23:59 :00 No [id number] 10 mg DAILY 10 mg DAILY (route: oral) Med Classific ation: Respirato ry Therapy Agents Trelegy Ellipta 100 mcg-62.5 mcg-25 mcg powder for inhalation 10-27 00:00: 00 01-19 23:59 :00 No [id number] 100 inhalat ion DAILY 100 inhalation DAILY (route: inhalation ) Med Classific ation: Respirato ry Therapy Agents aripiprazol e 15 mg tablet 2023-03-08 00:00: 00 09-21 23:59 :00 No [id number] 15 mg BEDTIME 15 mg BEDTIME (route: oral) Med Classific ation: Central Nervous System Agents docusate sodium 100 mg capsule 2023-03 00:00: 00 09-21 23:59 :00 No [id number] 100 mg 2 TIMES DAILY 100 mg 2 TIMES DAILY (route: oral) Med Classific ation: Gastroint estinal Therapy Agents Eliquis 5 mg tablet 2023-03 00:00: 00 09-21 23:59 :00 No [id number] 5 mg 2 TIMES DAILY 5 mg 2 TIMES DAILY (route: oral) Med Classific ation: Hematolog ical Agents escitalopra m 10 mg tablet 2023-03 00:00: 00 09-21 23:59 :00 No [id number] 10 mg DAILY 10 mg DAILY (route: oral) Med Classific ation: Central Nervous System Agents gabapentin 300 mg capsule 2023-03 00:00: 00 03-14 23:59 :00 No [id number] 300 mg 3 TIMES DAILY 300 mg 3 TIMES DAILY (route: oral) Med Classific ation: Central Nervous System Agents levetiracet am 750 mg tablet 2023-03 00:00: 00 09-21 23:59 :00 No [id number] 750 mg 2 TIMES DAILY 750 mg 2 TIMES DAILY (route: oral) Med Classific ation: Central Nervous System Agents magnesium 400 mg (as magnesium oxide) capsule 2023-03 00:00: 00 05-16 23:59 :00 No [id number] 400 mg DAILY 400 mg DAILY (route: oral) Med Classific ation: Electroly te Balance-N utritiona l Products meclizine 25 mg tablet 2023-03 00:00: 00 04-29 23:59 :00 No [id number] 25 mg NEEDED 25 mg NEEDED (route: oral) Med Classific ation: Gastroint estinal Therapy Agents montelukast 10 mg tablet 2023-03 00:00: 00 04-18 23:59 :00 No [id number] 10 mg EVERY PM 10 mg EVERY PM (route: oral) Med Classific ation: Respirato ry Therapy Agents omeprazole 40 mg capsule,del ayed release 2023-03 00:00: 00 08-15 23:59 :00 No [id number] 40 mg DAILY 40 mg DAILY (route: oral) Med Classific ation: Gastroint estinal Therapy Agents prednisone 10 mg tablet 2023-03 00:00: 00 09-21 23:59 :00 No [id number] 10 mg DAILY 10 mg DAILY (route: oral) Med Classific ation: Endocrine primidone 50 mg tablet 2023-03 00:00: 00 08-15 23:59 :00 No [id number] 50 mg 3 TIMES DAILY 50 mg 3 TIMES DAILY (route: oral) Med Classific ation: Central Nervous System Agents zolpidem 5 mg tablet 2023-03 00:00: 00 09-21 23:59 :00 No [id number] 5 mg BEDTIME 5 mg BEDTIME (route: oral) Med Classific ation: Central Nervous System Agents amlodipine 5 mg tablet 2023-03 00:00: 00 09-21 23:59 :00 No [id number] 1 tablet DAILY 1 tablet DAILY (route: oral) Med Classific ation: Cardiovas cular Therapy Agents gabapentin 300 mg capsule 2023-03 00:00: 00 09-21 23:59 :00 No [id number] 1 capsule NOON 1 capsule NOON (route: oral) Med Classific ation: Central Nervous System Agents gabapentin 600 mg tablet 03-17 00:00: 00 09-21 23:59 :00 No [id number] 1 tablet 2 TIMES DAILY 1 tablet 2 TIMES DAILY (route: oral) Med Classific ation: Central Nervous System Agents hydroxyzine pamoate 50 mg capsule 2023-03 2 00:00: 00 09-21 23:59 :00 No [id number] 1 capsule 2 TIMES DAILY 1 capsule 2 TIMES DAILY (route: oral) Med Classific ation: Central Nervous System Agents losartan 50 mg tablet 2023-03 2 00:00: 00 09-21 23:59 :00 No [id number] 1 tablet DAILY 1 tablet DAILY (route: oral) Med Classific ation: Cardiovas cular Therapy Agents multivitami n tablet 2023-03 230 00:00: 00 09-21 23:59 :00 No [id number] 1 tablet DAILY 1 tablet DAILY (route: oral) Med Classific ation: Electroly te Balance-N utritiona l Products olanzapine 10 mg tablet 2023-03 230 00:00: 00 04-06 23:59 :00 No [id number] 1 tablet BEDTIME 1 tablet BEDTIME (route: oral) Med Classific ation: Central Nervous System Agents pantoprazol e 40 mg tablet,boni yed release 2023-03 00:00: 00 09-21 23:59 :00 No [id number] 1 tablet 2 TIMES DAILY 1 tablet 2 TIMES DAILY (route: oral) Med Classific ation: Gastroint estinal Therapy Agents propranolol 10 mg tablet 2023-03 00:00: 00 09-21 23:59 :00 No [id number] 1 tablet 3 TIMES DAILY 1 tablet 3 TIMES DAILY (route: oral) Med Classific ation: Cardiovas cular Therapy Agents Vitamin D3 25 mcg (1,000 unit) capsule 2023-03 00:00: 00 09-21 23:59 :00 No [id number] 1 capsule BEDTIME 1 capsule BEDTIME (route: oral) Med Classific ation: Electroly te Balance-N utritiona l Products zileuton ER 600 mg tablet,exte nded release 12hr mphase 2023-03 2 00:00: 00 05-16 23:59 :00 No [id number] 1 tablet 2 TIMES DAILY 1 tablet 2 TIMES DAILY (route: oral) Med Classific ation: Respirato ry Therapy Agents Dupixent 300 mg/2 mL subcutaneou s pen injector 2023-03 2 00:00: 00 09-21 23:59 :00 No [id number] 300 mg EVERY OTHER WEEK 300 mg EVERY OTHER WEEK (route: subcutaneo us) Med Classific ation: Dermatolo gical albuterol sulfate 2.5 mg/3 mL (0.083 %) solution for nebulizatio n 03-22 00:00: 00 09-21 23:59 :00 No [id number] Per instruc tions 4 TIMES DAILY Per instructio ns 4 TIMES DAILY (route: inhalation ) Med Classific ation: Respirato ry Therapy Agents Combivent Respimat 20 mcg-100 mcg/actuati on solution for inhalation - 00:00: 00 09-21 23:59 :00 No [id number] 1 puff 4 TIMES DAILY 1 puff 4 TIMES DAILY (route: inhalation ) Med Classific ation: Respirato ry Therapy Agents fluticasone propionate 50 mcg/actuati on nasal spray,suspe nsion 03-22 00:00: 00 09-21 23:59 :00 No [id number] 1 spray DAILY 1 spray DAILY (route: nasal) Med Classific ation: Respirato ry Therapy Agents ipratropium 0.5 mg-albutero l 2.5 mg/2.5 mL solution for nebulizatio n 03-22 00:00: 00 09-21 23:59 :00 No [id number] Per instruc tions 4 TIMES DAILY Per instructio ns 4 TIMES DAILY (route: inhalation ) Med Classific ation: Respirato ry Therapy Agents Trelegy Ellipta 200 mcg-62.5 mcg-25 mcg powder for inhalation 03-22 00:00: 00 09-21 23:59 :00 No [id number] 1 inhalat ion DAILY 1 inhalation DAILY (route: inhalation ) Med Classific ation: Respirato ry Therapy Agents roflumilast 500 mcg tablet 2-03 00:00: 00 09-21 23:59 :00 No [id number] 1 mcg DAILY 1 mcg DAILY (route: oral) Med Classific ation: Respirato ry Therapy Agents ferrous gluconate 324 mg (37.5 mg iron) tablet 2-14 00:00: 00 09-21 23:59 :00 No [id number] 1 tablet DAILY 1 tablet DAILY (route: oral) Med Classific ation: Electroly te Balance-N utritiona l Products meclizine 12.5 mg tablet 2-14 00:00: 00 09-21 23:59 :00 No [id number] 1 tablet 3 TIMES DAILY 1 tablet 3 TIMES DAILY (route: oral) Med Classific ation: Gastroint estinal Therapy Agents zileuton ER 600 mg tablet,exte nded release 12hr mphase 08 00:00: 00 07-11 23:59 :00 No [id number] 2 tablet 2 TIMES DAILY 2 tablet 2 TIMES DAILY (route: oral) Med Classific ation: Respirato ry Therapy Agents Mag Glycinate 100 mg tablet 3-10 00:00: 00 06-27 23:59 :00 No [id number] 3 tablet DAILY 3 tablet DAILY (route: oral) Med Classific ation: Electroly te Balance-N utritiona l Products primidone 50 mg tablet 07-20 00:00: 00 09-21 23:59 :00 No [id number] 3 tablet 3 TIMES DAILY 3 tablet 3 TIMES DAILY (route: oral) Med Classific ation: Central Nervous System Agents vilazodone 10 mg tablet 08-15 00:00: 00 09-21 23:59 :00 No [id number] 0.5 tablet DAILY 0.5 tablet DAILY (route: oral) Med Classific ation: Central Nervous System Agents amlodipine 5 mg tablet 09-23 00:00: 00 Yes [id number] 1 tablet DAILY 1 tablet DAILY (route: oral) Med Classific ation: Cardiovas cular Therapy Agents aripiprazol e 20 mg tablet 09-23 00:00: 00 Yes [id number] 1 tablet BEDTIME 1 tablet BEDTIME (route: oral) Med Classific ation: Central Nervous System Agents Combivent Respimat 20 mcg-100 mcg/actuati on solution for inhalation 09-23 00:00: 00 Yes [id number] 1 puff 4 TIMES DAILY 1 puff 4 TIMES DAILY (route: inhalation ) Med Classific ation: Respirato ry Therapy Agents docusate sodium 100 mg tablet 09-23 00:00: 00 Yes [id number] 1 tablet 2 TIMES DAILY 1 tablet 2 TIMES DAILY (route: oral) Med Classific ation: Gastroint estinal Therapy Agents Dupixent 300 mg/2 mL subcutaneou s pen injector 09-23 00:00: 00 Yes [id number] 2 mL EVERY OTHER WEEK 2 mL EVERY OTHER WEEK (route: subcutaneo us) Med Classific ation: Dermatolo gical Eliquis 5 mg tablet 09-23 00:00: 00 Yes [id number] 1 tablet 2 TIMES DAILY 1 tablet 2 TIMES DAILY (route: oral) Med Classific ation: Hematolog ical Agents escitalopra m 5 mg tablet 09-23 00:00: 00 Yes [id number] 3 tablet DAILY 3 tablet DAILY (route: oral) Med Classific ation: Central Nervous System Agents ferrous gluconate 324 mg (37.5 mg iron) tablet 09-23 00:00: 00 Yes [id number] 1 tablet DAILY 1 tablet DAILY (route: oral) Med Classific ation: Electroly te Balance-N utritiona l Products fluticasone 100 mcg-salmete rol 50 mcg/dose blistr powdr for inhalation 09-23 00:00: 00 Yes [id number] 1 inhalat ion DAILY 1 inhalation DAILY (route: inhalation ) Med Classific ation: Respirato ry Therapy Agents gabapentin 300 mg capsule 09-23 00:00: 00 Yes [id number] 1 capsule NOON 1 capsule NOON (route: oral) Med Classific ation: Central Nervous System Agents gabapentin 600 mg tablet 09-23 00:00: 00 Yes [id number] 1 tablet 2 TIMES DAILY 1 tablet 2 TIMES DAILY (route: oral) Med Classific ation: Central Nervous System Agents hydroxyzine HCl 50 mg tablet 09-23 00:00: 00 Yes [id number] 1 tablet 2 TIMES DAILY 1 tablet 2 TIMES DAILY (route: oral) Med Classific ation: Central Nervous System Agents ipratropium 0.5 mg-albutero l 2.5 mg/2.5 mL solution for nebulizatio n 09-23 00:00: 00 Yes [id number] Per instruc tions 4 TIMES DAILY Per instructio ns 4 TIMES DAILY (route: inhalation ) Med Classific ation: Respirato ry Therapy Agents levetiracet am 750 mg tablet 09-23 00:00: 00 Yes [id number] 1 tablet 2 TIMES DAILY 1 tablet 2 TIMES DAILY (route: oral) Med Classific ation: Central Nervous System Agents losartan 50 mg tablet 09-23 00:00: 00 Yes [id number] 1 tablet DAILY 1 tablet DAILY (route: oral) Med Classific ation: Cardiovas cular Therapy Agents meclizine 25 mg tablet 09-23 00:00: 00 11-28 23:59 :00 No [id number] 1 tablet 3 TIMES DAILY 1 tablet 3 TIMES DAILY (route: oral) Med Classific ation: Gastroint estinal Therapy Agents multivitami n tablet 09-23 00:00: 00 Yes [id number] 1 tablet DAILY 1 tablet DAILY (route: oral) Med Classific ation: Electroly te Balance-N utritiona l Products pantoprazol e 40 mg tablet,boni yed release 09-23 00:00: 00 Yes [id number] 1 tablet 2 TIMES DAILY 1 tablet 2 TIMES DAILY (route: oral) Med Classific ation: Gastroint estinal Therapy Agents prednisone 10 mg tablet 09-23 00:00: 00 Yes [id number] 1 tablet DAILY 1 tablet DAILY (route: oral) Med Classific ation: Endocrine primidone 50 mg tablet 09-23 00:00: 00 Yes [id number] 3 tablet 3 TIMES DAILY 3 tablet 3 TIMES DAILY (route: oral) Med Classific ation: Central Nervous System Agents propranolol 10 mg tablet 09-23 00:00: 00 Yes [id number] 1 tablet 3 TIMES DAILY 1 tablet 3 TIMES DAILY (route: oral) Med Classific ation: Cardiovas cular Therapy Agents roflumilast 500 mcg tablet 09-23 00:00: 00 Yes [id number] 1 tablet DAILY 1 tablet DAILY (route: oral) Med Classific ation: Respirato ry Therapy Agents Trelegy Ellipta 200 mcg-62.5 mcg-25 mcg powder for inhalation 09-23 00:00: 00 Yes [id number] 1 inhalat ion DAILY 1 inhalation DAILY (route: inhalation ) Med Classific ation: Respirato ry Therapy Agents vilazodone 10 mg tablet 09-23 00:00: 00 Yes [id number] 0.5 tablet DAILY 0.5 tablet DAILY (route: oral) Med Classific ation: Central Nervous System Agents Vitamin D3 25 mcg (1,000 unit) capsule 09-23 00:00: 00 Yes [id number] 1 capsule DAILY 1 capsule DAILY (route: oral) Med Classific ation: Electroly te Balance-N utritiona l Products zolpidem 5 mg tablet 09-23 00:00: 00 Yes [id number] 1 tablet BEDTIME 1 tablet BEDTIME (route: oral) Med Classific ation: Central Nervous System Agents prednisone 10 mg tablet 09-23 00:00: 00 Yes [id number] 1 tablet DAILY 1 tablet DAILY (route: oral) Med Classific ation: Endocrine meclizine 12.5 mg tablet 11-21 00:00: 00 Yes [id number] 1 tablet DAILY 1 tablet DAILY (route: oral) Med Classific ation: Gastroint estinal Therapy Agents prednisone 10 mg tablet 12-09 00:00: 00 Yes [id number] 1 tablet EVERY OTHER DAY 1 tablet EVERY OTHER DAY (route: oral) Med Classific ation: Endocrine zileuton ER 600 mg tablet,exte nded release 12hr mphase 12-09 00:00: 00 Yes [id number] 2 tablet 2 TIMES DAILY 2 tablet 2 TIMES DAILY (route: oral) Med Classific ation: Respirato ry Therapy Agents Immunizations Ordered Immunization Name Filled Immunization Name Date Status Comments Refusal Reason INFLUENZA, TIV (INACTIVATED) 2023-11-16 00:00:00 Vital Signs Vital Name Observation Time Observation Value Commen ts Temperature 2024-12-09 14:40:00.000 97.8 [degF] Temperature 2024-12-07 14:56:00.000 97.6 [degF] Temperature 2024-12-05 14:13:00.000 97.8 [degF] Temperature 2024-11-28 14:04:00.000 97.5 [degF] Temperature 2024-11-25 15:15:00.000 97.3 [degF] Temperature 2024-11-23 13:09:00.000 97.5 [degF] Pulse 2024-12-09 14:40:00.000 64 /min Pulse 2024-12-07 14:56:00.000 70 /min Pulse 2024-12-05 14:13:00.000 64 /min Pulse 2024-11-30 15:14:00.000 68 /min Pulse 2024-11-28 14:04:00.000 64 /min Pulse 2024-11-25 15:15:00.000 68 /min Pulse 2024-11-23 13:09:00.000 68 /min O2 Saturation (%) 2024-12-09 14:50:00.000 98 % O2 Saturation (%) 2024-12-07 14:56:00.000 98 % O2 Saturation (%) 2024-12-05 14:14:00.000 96 % O2 Saturation (%) 2024-11-30 15:17:00.000 96 % O2 Saturation (%) 2024-11-28 14:04:00.000 96 % O2 Saturation (%) 2024-11-25 15:16:00.000 93 % O2 Saturation (%) 2024-11-23 13:11:00.000 96 % Respirations 2024-12-09 14:40:00.000 16 /min Respirations 2024-12-07 14:56:00.000 16 /min Respirations 2024-12-05 14:13:00.000 16 /min Respirations 2024-11-30 15:14:00.000 16 /min Respirations 2024-11-28 14:04:00.000 16 /min Respirations 2024-11-25 15:15:00.000 16 /min Respirations 2024-11-23 13:09:00.000 16 /min Systolic Blood Pressure 2024-12-09 14:40:00.000 100 mm [Hg] Systolic Blood Pressure 2024-12-07 14:56:00.000 112 mm [Hg] Systolic Blood Pressure 2024-12-05 14:13:00.000 120 mm [Hg] Systolic Blood Pressure 2024-11-30 15:14:00.000 112 mm [Hg] Systolic Blood Pressure 2024-11-28 14:04:00.000 100 mm [Hg] Systolic Blood Pressure 2024-11-25 15:15:00.000 118 mm [Hg] Systolic Blood Pressure 2024-11-23 13:09:00.000 110 mm [Hg] Diastolic Blood Pressure 2024-12-09 14:40:00.000 [...] AWARENESS FOR SAFETY AND WILL NOTIFY CLINICAL KENO ATTENDANT AND PHYSICIAN/PROVIDER WITH ANY CHANGE IN CONDITION. [code = SKILLED NURSE WILL MAINTAIN SITUATIONAL AWARENESS FOR SAFETY AND WILL NOTIFY CLINICAL KENO ATTENDANT AND PHYSICIAN/PROVIDER WITH ANY CHANGE IN CONDITION.] [...] AWARENESS FOR SAFETY AND WILL NOTIFY CLINICAL KENO ATTENDANT AND PHYSICIAN/PROVIDER WITH ANY CHANGE IN CONDITION. [...] AWARENESS FOR SAFETY AND WILL NOTIFY CLINICAL KENO ATTENDANT AND PHYSICIAN/PROVIDER WITH ANY CHANGE IN CONDITION.] [...] CARE WILL BE ESTABLISHED THAT MEETS PATIENT'S CARE HOME NEEDS AND INCLUDES PATIENT GOAL FOR HOME [...] End Date/Time Encounter Type Admission Type Attending [facility] Care Department Encounter ID Discharge Date Discharge Status Discharge Condition Discharge Reason Percent Goals Met 2024-11-22 00:00:00 2025-01-20 00:00:00 Outpatient RECERTIFIC DOROTHEA DUARTEHB [id number] 0.00
== END 2024-12-14 10:15 | disposition home or self-care (01) ==
LOC: HO.MRI 10:14
PROVIDERS: Visit Provider Nurse Practitioner Family
DX: R25.1 Tremor, unspecified (principal); R56.9 Unspecified convulsions; R44.0 Auditory hallucinations
CPT/HCPCS: 70553; A9585

== ENCOUNTER → 2025-01-24 09:52 | Outpatient (REF) | payer MEDICARE, SELFPAY ==
--- OUTSIDE RECORDS SUMMARY | 2025-01-19 19:00 | XMS_ITS | Clinical Summary ---
Author Organization Unknown Care Team Providers Care Scientific Writer Name Role Phone KAT MARCELO MEDICAL ASSISTING INSTRUCTOR, SHARYN Unavailable Palmira HEIN RN, DOROTHEA Unavailable Unavailable Payers Payer Name Policy Type Policy Number Effective Date Expira tion Date [employer] MEDICARE ADVANTAGE FFS [id number] MEDICAID [facility] [id number] MEDICARE - [facility] [place] [id number] Problems Condition Name Condition Details Condition Category [...] to adverse reactions Active 09-25 15:51: 12 FLAGYL Propensity to adverse reactions Active 09-25 15:52: 47 TRAMADOL Propensity to adverse reactions Active 09-25 15:53: 18 BUPROPRION Propensity to adverse reactions Active 09-25 15:51: 40 ACETAMINOPHE N Propensity to adverse reactions Active 09-25 15:52: 21 OXYCODONE Propensity to adverse reactions Active 09-25 15:52: 02 ACETAMINOPHE N-CODEINE Propensity to adverse reactions Active 09-25 15:52: 33 NICODERM CQ Propensity to adverse reactions Active 09-25 15:52: 58 BUPROPION HCL Propensity to adverse reactions Active 09-25 15:51: 52 SULAMETHOXAZ OLE Propensity to adverse reactions Active 09-25 15:52: 13 Medications Ordered Medication Name Filled Medication Name Start Date Stop Date Current Medication? Ordering Clinician Indication Dosage Frequency Signature (SIG) Comments Components Dupixent 300 mg/2 mL subcutaneou s syringe 04-17 00:00: 00 01-19 23:59 :00 No [id number] 300 mg EVERY OTHER WEEK 300 mg EVERY OTHER WEEK (route: subcutaneo us) Med Classific ation: Dermatolo gical amlodipine 2.5 mg tablet 04-02 00:00: 00 10-28 23:59 :00 No [id number] 2.5 mg EVERY AM 2.5 mg EVERY AM (route: oral) Med Classific ation: Cardiovas cular Therapy Agents Trelegy Ellipta 200 mcg-62.5 mcg-25 mcg powder for inhalation 04-02 00:00: 00 04-23 23:59 :00 No [id number] 200 mcg DAILY 200 mcg DAILY (route: inhalation ) Med Classific ation: Respirato ry Therapy Agents prednisone 10 mg tablet -17 00:00: 00 04-23 23:59 :00 No [id number] 10 mg DAILY 10 mg DAILY (route: oral) Med Classific ation: Endocrine gabapentin 300 mg capsule 12 00:00: 00 10-27 23:59 :00 No [id number] 1 capsule NOON 1 capsule NOON (route: oral) Med Classific ation: Central Nervous System Agents gabapentin 600 mg tablet 03-27 00:00: 00 10-27 23:59 :00 No [id number] 2 tablet 2 TIMES DAILY 2 tablet 2 TIMES DAILY (route: oral) Med Classific ation: Central Nervous System Agents olanzapine 5 mg tablet 03-27 00:00: 00 06-23 23:59 :00 No [id number] 5 mg BEDTIME 5 mg BEDTIME (route: oral) Med Classific ation: Central Nervous System Agents montelukast 10 mg tablet 03-26 00:00: 00 04-23 23:59 :00 No [id number] 10 mg BEDTIME 10 mg BEDTIME (route: oral) Med Classific ation: Respirato ry Therapy Agents zileuton ER 600 mg tablet,exte nded release 12hr mphase 03-26 00:00: 00 01-19 23:59 :00 No [id number] 600 mg 2 TIMES DAILY 600 mg 2 TIMES DAILY (route: oral) Med Classific ation: Respirato ry Therapy Agents aripiprazol e 15 mg tablet 03-25 00:00: 00 01-19 23:59 :00 No [id number] 0.5 tablet BEDTIME 0.5 tablet BEDTIME (route: oral) Med Classific ation: Central Nervous System Agents clonidine HCl 0.1 mg tablet 03-25 00:00: 00 10-27 23:59 :00 No [id number] 0.1 mg BEDTIME 0.1 mg BEDTIME (route: oral) Med Classific ation: Cardiovas cular Therapy Agents escitalopra m 10 mg tablet 03-25 00:00: 00 01-19 23:59 :00 No [id number] 10 mg DAILY 10 mg DAILY (route: oral) Med Classific ation: Central Nervous System Agents hydroxyzine HCl 25 mg tablet 1-10 00:00: 00 01-19 23:59 :00 No [id number] 25 mg 3 TIMES DAILY 25 mg 3 TIMES DAILY (route: oral) Med Classific ation: Central Nervous System Agents levetiracet am 750 mg tablet - 00:00: 00 01-19 23:59 :00 No [id number] 750 mg 2 TIMES DAILY 750 mg 2 TIMES DAILY (route: oral) Med Classific ation: Central Nervous System Agents pantoprazol e 40 mg tablet,boni yed release 03-25 00:00: 00 10-27 23:59 :00 No [id number] 40 mg 2 TIMES DAILY 40 mg 2 TIMES DAILY (route: oral) Med Classific ation: Gastroint estinal Therapy Agents primidone 50 mg tablet 03-25 00:00: 00 01-19 23:59 :00 No [id number] 50 mg 3 TIMES DAILY 50 mg 3 TIMES DAILY (route: oral) Med Classific ation: Central Nervous System Agents Eliquis 5 mg tablet -08 00:00: 00 01-19 23:59 :00 No [id number] 5 mg 2 TIMES DAILY 5 mg 2 TIMES DAILY (route: oral) Med Classific ation: Hematolog ical Agents magnesium oxide 400 mg (241.3 mg magnesium) tablet -08 00:00: 00 01-19 23:59 :00 No [id number] 0.5 tablet DAILY 0.5 tablet DAILY (route: oral) Med Classific ation: Electroly te Balance-N utritiona l Products multivitami n tablet 2-08 00:00: 00 01-19 23:59 :00 No [id number] 1 tablet DAILY 1 tablet DAILY (route: oral) Med Classific ation: Electroly te Balance-N utritiona l Products meclizine 25 mg tablet 4-10 00:00: 00 01-19 23:59 :00 No [id number] 1 tablet 3 TIMES DAILY 1 tablet 3 TIMES DAILY (route: oral) Med Classific ation: Gastroint estinal Therapy Agents Ambien 5 mg tablet 08-11 00:00: 00 01-19 23:59 :00 No [id number] 1 tablet BEDTIME 1 tablet BEDTIME (route: oral) Med Classific ation: Central Nervous System Agents olanzapine 5 mg tablet 08-11 00:00: 00 10-27 23:59 :00 No [id number] 1 tablet EVERY PM 1 tablet EVERY PM (route: oral) Med Classific ation: Central Nervous System Agents albuterol sulfate concentrate 2.5 mg/0.5 mL solution for nebulizatio n 09-30 00:00: 00 01-19 23:59 :00 No [id number] 1 vial, nebuliz er 4 TIMES DAILY 1 vial, nebulizer 4 TIMES DAILY (route: inhalation ) Med Classific ation: Respirato ry Therapy Agents amoxicillin 500 mg capsule 09-30 00:00: 00 10-10 23:59 :00 No [id number] 500 mg 2 TIMES DAILY 500 mg 2 TIMES DAILY (route: oral) Med Classific ation: Anti-Infe ctive Agents ondansetron HCl 4 mg tablet 10-05 00:00: 00 10-27 23:59 :00 No [id number] 1 tablet EVERY 8 HOURS 1 tablet EVERY 8 HOURS (route: oral) Med Classific ation: Gastroint estinal Therapy Agents amlodipine 5 mg tablet 10-27 00:00: 00 01-19 23:59 :00 No [id number] 5 mg DAILY 5 mg DAILY (route: oral) Med Classific ation: Cardiovas cular Therapy Agents Combivent Respimat 20 mcg-100 mcg/actuati on solution for inhalation 10-27 00:00: 00 01-19 23:59 :00 No [id number] 20 puff 4 TIMES DAILY 20 puff 4 TIMES DAILY (route: inhalation ) Med Classific ation: Respirato ry Therapy Agents Flonase Allergy Relief 50 mcg/actuati on nasal spray,suspe nsion 10-27 00:00: 00 01-19 23:59 :00 No [id number] 50 spray DIRECTED 50 spray DIRECTED (route: nasal) Med Classific ation: Respirato ry Therapy Agents gabapentin 300 mg capsule 10-27 00:00: 00 01-19 23:59 :00 No [id number] 300 capsule 3 TIMES DAILY 300 capsule 3 TIMES DAILY (route: oral) Med Classific ation: Central Nervous System Agents ipratropium 0.5 mg-albutero l 3 mg (2.5 mg base)/3 mL nebulizatio n soln 10-27 00:00: 00 01-19 23:59 :00 No [id number] Per instruc tions NEEDED Per instructio ns NEEDED (route: inhalation ) Med Classific ation: Respirato ry Therapy Agents omeprazole 40 mg capsule,del ayed release 10-27 00:00: 00 01-19 23:59 :00 No [id number] 40 mg DAILY 40 mg DAILY (route: oral) Med Classific ation: Gastroint estinal Therapy Agents prednisone 10 mg tablet 10-27 00:00: 00 01-19 23:59 :00 No [id number] 10 mg DAILY 10 mg DAILY (route: oral) Med Classific ation: Endocrine Singulair 10 mg tablet 10-27 00:00: 00 01-19 23:59 :00 No [id number] 10 mg DAILY 10 mg DAILY (route: oral) Med Classific ation: Respirato ry Therapy Agents Trelegy Ellipta 100 mcg-62.5 mcg-25 mcg powder for inhalation 10-27 00:00: 00 01-19 23:59 :00 No [id number] 100 inhalat ion DAILY 100 inhalation DAILY (route: inhalation ) Med Classific ation: Respirato ry Therapy Agents aripiprazol e 15 mg tablet 2023-03-08 00:00: 00 09-21 23:59 :00 No [id number] 15 mg BEDTIME 15 mg BEDTIME (route: oral) Med Classific ation: Central Nervous System Agents docusate sodium 100 mg capsule 2023-03 00:00: 00 09-21 23:59 :00 No [id number] 100 mg 2 TIMES DAILY 100 mg 2 TIMES DAILY (route: oral) Med Classific ation: Gastroint estinal Therapy Agents Eliquis 5 mg tablet 2023-03 00:00: 00 09-21 23:59 :00 No [id number] 5 mg 2 TIMES DAILY 5 mg 2 TIMES DAILY (route: oral) Med Classific ation: Hematolog ical Agents escitalopra m 10 mg tablet 2023-03 00:00: 00 09-21 23:59 :00 No [id number] 10 mg DAILY 10 mg DAILY (route: oral) Med Classific ation: Central Nervous System Agents gabapentin 300 mg capsule 2023-03 00:00: 00 03-14 23:59 :00 No [id number] 300 mg 3 TIMES DAILY 300 mg 3 TIMES DAILY (route: oral) Med Classific ation: Central Nervous System Agents levetiracet am 750 mg tablet 2023-03 00:00: 00 09-21 23:59 :00 No [id number] 750 mg 2 TIMES DAILY 750 mg 2 TIMES DAILY (route: oral) Med Classific ation: Central Nervous System Agents magnesium 400 mg (as magnesium oxide) capsule 2023-03 00:00: 00 05-16 23:59 :00 No [id number] 400 mg DAILY 400 mg DAILY (route: oral) Med Classific ation: Electroly te Balance-N utritiona l Products meclizine 25 mg tablet 2023-03 00:00: 00 04-29 23:59 :00 No [id number] 25 mg NEEDED 25 mg NEEDED (route: oral) Med Classific ation: Gastroint estinal Therapy Agents montelukast 10 mg tablet 2023-03 00:00: 00 04-18 23:59 :00 No [id number] 10 mg EVERY PM 10 mg EVERY PM (route: oral) Med Classific ation: Respirato ry Therapy Agents omeprazole 40 mg capsule,del ayed release 2023-03 00:00: 00 08-15 23:59 :00 No [id number] 40 mg DAILY 40 mg DAILY (route: oral) Med Classific ation: Gastroint estinal Therapy Agents prednisone 10 mg tablet 2023-03 00:00: 00 09-21 23:59 :00 No [id number] 10 mg DAILY 10 mg DAILY (route: oral) Med Classific ation: Endocrine primidone 50 mg tablet 2023-03 00:00: 00 08-15 23:59 :00 No [id number] 50 mg 3 TIMES DAILY 50 mg 3 TIMES DAILY (route: oral) Med Classific ation: Central Nervous System Agents zolpidem 5 mg tablet 2023-03 00:00: 00 09-21 23:59 :00 No [id number] 5 mg BEDTIME 5 mg BEDTIME (route: oral) Med Classific ation: Central Nervous System Agents amlodipine 5 mg tablet 2023-03 00:00: 00 09-21 23:59 :00 No [id number] 1 tablet DAILY 1 tablet DAILY (route: oral) Med Classific ation: Cardiovas cular Therapy Agents gabapentin 300 mg capsule 2023-03 00:00: 00 09-21 23:59 :00 No [id number] 1 capsule NOON 1 capsule NOON (route: oral) Med Classific ation: Central Nervous System Agents gabapentin 600 mg tablet 03-17 00:00: 00 09-21 23:59 :00 No [id number] 1 tablet 2 TIMES DAILY 1 tablet 2 TIMES DAILY (route: oral) Med Classific ation: Central Nervous System Agents hydroxyzine pamoate 50 mg capsule 2023-03 2 00:00: 00 09-21 23:59 :00 No [id number] 1 capsule 2 TIMES DAILY 1 capsule 2 TIMES DAILY (route: oral) Med Classific ation: Central Nervous System Agents losartan 50 mg tablet 2023-03 2 00:00: 00 09-21 23:59 :00 No [id number] 1 tablet DAILY 1 tablet DAILY (route: oral) Med Classific ation: Cardiovas cular Therapy Agents multivitami n tablet 2023-03 230 00:00: 00 09-21 23:59 :00 No [id number] 1 tablet DAILY 1 tablet DAILY (route: oral) Med Classific ation: Electroly te Balance-N utritiona l Products olanzapine 10 mg tablet 2023-03 230 00:00: 00 04-06 23:59 :00 No [id number] 1 tablet BEDTIME 1 tablet BEDTIME (route: oral) Med Classific ation: Central Nervous System Agents pantoprazol e 40 mg tablet,boni yed release 2023-03 00:00: 00 09-21 23:59 :00 No [id number] 1 tablet 2 TIMES DAILY 1 tablet 2 TIMES DAILY (route: oral) Med Classific ation: Gastroint estinal Therapy Agents propranolol 10 mg tablet 2023-03 00:00: 00 09-21 23:59 :00 No [id number] 1 tablet 3 TIMES DAILY 1 tablet 3 TIMES DAILY (route: oral) Med Classific ation: Cardiovas cular Therapy Agents Vitamin D3 25 mcg (1,000 unit) capsule 2023-03 00:00: 00 09-21 23:59 :00 No [id number] 1 capsule BEDTIME 1 capsule BEDTIME (route: oral) Med Classific ation: Electroly te Balance-N utritiona l Products zileuton ER 600 mg tablet,exte nded release 12hr mphase 2023-03 2 00:00: 00 05-16 23:59 :00 No [id number] 1 tablet 2 TIMES DAILY 1 tablet 2 TIMES DAILY (route: oral) Med Classific ation: Respirato ry Therapy Agents Dupixent 300 mg/2 mL subcutaneou s pen injector 2023-03 2 00:00: 00 09-21 23:59 :00 No [id number] 300 mg EVERY OTHER WEEK 300 mg EVERY OTHER WEEK (route: subcutaneo us) Med Classific ation: Dermatolo gical albuterol sulfate 2.5 mg/3 mL (0.083 %) solution for nebulizatio n 03-22 00:00: 00 09-21 23:59 :00 No [id number] Per instruc tions 4 TIMES DAILY Per instructio ns 4 TIMES DAILY (route: inhalation ) Med Classific ation: Respirato ry Therapy Agents Combivent Respimat 20 mcg-100 mcg/actuati on solution for inhalation - 00:00: 00 09-21 23:59 :00 No [id number] 1 puff 4 TIMES DAILY 1 puff 4 TIMES DAILY (route: inhalation ) Med Classific ation: Respirato ry Therapy Agents fluticasone propionate 50 mcg/actuati on nasal spray,suspe nsion 03-22 00:00: 00 09-21 23:59 :00 No [id number] 1 spray DAILY 1 spray DAILY (route: nasal) Med Classific ation: Respirato ry Therapy Agents ipratropium 0.5 mg-albutero l 2.5 mg/2.5 mL solution for nebulizatio n 03-22 00:00: 00 09-21 23:59 :00 No [id number] Per instruc tions 4 TIMES DAILY Per instructio ns 4 TIMES DAILY (route: inhalation ) Med Classific ation: Respirato ry Therapy Agents Trelegy Ellipta 200 mcg-62.5 mcg-25 mcg powder for inhalation 03-22 00:00: 00 09-21 23:59 :00 No [id number] 1 inhalat ion DAILY 1 inhalation DAILY (route: inhalation ) Med Classific ation: Respirato ry Therapy Agents roflumilast 500 mcg tablet 2-03 00:00: 00 09-21 23:59 :00 No [id number] 1 mcg DAILY 1 mcg DAILY (route: oral) Med Classific ation: Respirato ry Therapy Agents ferrous gluconate 324 mg (37.5 mg iron) tablet 2-14 00:00: 00 09-21 23:59 :00 No [id number] 1 tablet DAILY 1 tablet DAILY (route: oral) Med Classific ation: Electroly te Balance-N utritiona l Products meclizine 12.5 mg tablet 2-14 00:00: 00 09-21 23:59 :00 No [id number] 1 tablet 3 TIMES DAILY 1 tablet 3 TIMES DAILY (route: oral) Med Classific ation: Gastroint estinal Therapy Agents zileuton ER 600 mg tablet,exte nded release 12hr mphase 08 00:00: 00 07-11 23:59 :00 No [id number] 2 tablet 2 TIMES DAILY 2 tablet 2 TIMES DAILY (route: oral) Med Classific ation: Respirato ry Therapy Agents Mag Glycinate 100 mg tablet 3-10 00:00: 00 06-27 23:59 :00 No [id number] 3 tablet DAILY 3 tablet DAILY (route: oral) Med Classific ation: Electroly te Balance-N utritiona l Products primidone 50 mg tablet 07-20 00:00: 00 09-21 23:59 :00 No [id number] 3 tablet 3 TIMES DAILY 3 tablet 3 TIMES DAILY (route: oral) Med Classific ation: Central Nervous System Agents vilazodone 10 mg tablet 08-15 00:00: 00 09-21 23:59 :00 No [id number] 0.5 tablet DAILY 0.5 tablet DAILY (route: oral) Med Classific ation: Central Nervous System Agents amlodipine 5 mg tablet 09-23 00:00: 00 Yes [id number] 1 tablet DAILY 1 tablet DAILY (route: oral) Med Classific ation: Cardiovas cular Therapy Agents aripiprazol e 20 mg tablet 09-23 00:00: 00 Yes [id number] 1 tablet BEDTIME 1 tablet BEDTIME (route: oral) Med Classific ation: Central Nervous System Agents Combivent Respimat 20 mcg-100 mcg/actuati on solution for inhalation 09-23 00:00: 00 Yes [id number] 1 puff 4 TIMES DAILY 1 puff 4 TIMES DAILY (route: inhalation ) Med Classific ation: Respirato ry Therapy Agents docusate sodium 100 mg tablet 09-23 00:00: 00 Yes [id number] 1 tablet 2 TIMES DAILY 1 tablet 2 TIMES DAILY (route: oral) Med Classific ation: Gastroint estinal Therapy Agents Dupixent 300 mg/2 mL subcutaneou s pen injector 09-23 00:00: 00 Yes [id number] 2 mL EVERY OTHER WEEK 2 mL EVERY OTHER WEEK (route: subcutaneo us) Med Classific ation: Dermatolo gical Eliquis 5 mg tablet 09-23 00:00: 00 Yes [id number] 1 tablet 2 TIMES DAILY 1 tablet 2 TIMES DAILY (route: oral) Med Classific ation: Hematolog ical Agents escitalopra m 5 mg tablet 09-23 00:00: 00 12-19 23:59 :00 No [id number] 3 tablet DAILY 3 tablet DAILY (route: oral) Med Classific ation: Central Nervous System Agents ferrous gluconate 324 mg (37.5 mg iron) tablet 09-23 00:00: 00 Yes [id number] 1 tablet DAILY 1 tablet DAILY (route: oral) Med Classific ation: Electroly te Balance-N utritiona l Products fluticasone 100 mcg-salmete rol 50 mcg/dose blistr powdr for inhalation 09-23 00:00: 00 Yes [id number] 1 inhalat ion DAILY 1 inhalation DAILY (route: inhalation ) Med Classific ation: Respirato ry Therapy Agents gabapentin 300 mg capsule 09-23 00:00: 00 Yes [id number] 1 capsule NOON 1 capsule NOON (route: oral) Med Classific ation: Central Nervous System Agents gabapentin 600 mg tablet 09-23 00:00: 00 Yes [id number] 1 tablet 2 TIMES DAILY 1 tablet 2 TIMES DAILY (route: oral) Med Classific ation: Central Nervous System Agents hydroxyzine HCl 50 mg tablet 09-23 00:00: 00 Yes [id number] 1 tablet 2 TIMES DAILY 1 tablet 2 TIMES DAILY (route: oral) Med Classific ation: Central Nervous System Agents ipratropium 0.5 mg-albutero l 2.5 mg/2.5 mL solution for nebulizatio n 09-23 00:00: 00 Yes [id number] Per instruc tions 4 TIMES DAILY Per instructio ns 4 TIMES DAILY (route: inhalation ) Med Classific ation: Respirato ry Therapy Agents levetiracet am 750 mg tablet 09-23 00:00: 00 Yes [id number] 1 tablet 2 TIMES DAILY 1 tablet 2 TIMES DAILY (route: oral) Med Classific ation: Central Nervous System Agents losartan 50 mg tablet 09-23 00:00: 00 Yes [id number] 1 tablet DAILY 1 tablet DAILY (route: oral) Med Classific ation: Cardiovas cular Therapy Agents meclizine 25 mg tablet 09-23 00:00: 00 11-28 23:59 :00 No [id number] 1 tablet 3 TIMES DAILY 1 tablet 3 TIMES DAILY (route: oral) Med Classific ation: Gastroint estinal Therapy Agents multivitami n tablet 09-23 00:00: 00 Yes [id number] 1 tablet DAILY 1 tablet DAILY (route: oral) Med Classific ation: Electroly te Balance-N utritiona l Products pantoprazol e 40 mg tablet,boni yed release 09-23 00:00: 00 Yes [id number] 1 tablet 2 TIMES DAILY 1 tablet 2 TIMES DAILY (route: oral) Med Classific ation: Gastroint estinal Therapy Agents prednisone 10 mg tablet 09-23 00:00: 00 12-09 23:59 :00 No [id number] 1 tablet DAILY 1 tablet DAILY (route: oral) Med Classific ation: Endocrine primidone 50 mg tablet 09-23 00:00: 00 Yes [id number] 3 tablet 3 TIMES DAILY 3 tablet 3 TIMES DAILY (route: oral) Med Classific ation: Central Nervous System Agents propranolol 10 mg tablet 09-23 00:00: 00 Yes [id number] 1 tablet 3 TIMES DAILY 1 tablet 3 TIMES DAILY (route: oral) Med Classific ation: Cardiovas cular Therapy Agents roflumilast 500 mcg tablet 09-23 00:00: 00 Yes [id number] 1 tablet DAILY 1 tablet DAILY (route: oral) Med Classific ation: Respirato ry Therapy Agents Trelegy Ellipta 200 mcg-62.5 mcg-25 mcg powder for inhalation 09-23 00:00: 00 Yes [id number] 1 inhalat ion DAILY 1 inhalation DAILY (route: inhalation ) Med Classific ation: Respirato ry Therapy Agents vilazodone 10 mg tablet 09-23 00:00: 00 12-19 23:59 :00 No [id number] 0.5 tablet DAILY 0.5 tablet DAILY (route: oral) Med Classific ation: Central Nervous System Agents Vitamin D3 25 mcg (1,000 unit) capsule 09-23 00:00: 00 Yes [id number] 1 capsule DAILY 1 capsule DAILY (route: oral) Med Classific ation: Electroly te Balance-N utritiona l Products zolpidem 5 mg tablet 09-23 00:00: 00 09-23 23:59 :00 No [id number] 1 tablet BEDTIME 1 tablet BEDTIME (route: oral) Med Classific ation: Central Nervous System Agents prednisone 10 mg tablet 09-23 00:00: 00 12-09 23:59 :00 No [id number] 1 tablet DAILY 1 tablet DAILY (route: oral) Med Classific ation: Endocrine meclizine 12.5 mg tablet 11-21 00:00: 00 Yes [id number] 1 tablet DAILY 1 tablet DAILY (route: oral) Med Classific ation: Gastroint estinal Therapy Agents prednisone 10 mg tablet 12-09 00:00: 00 Yes [id number] 1 tablet EVERY OTHER DAY 1 tablet EVERY OTHER DAY (route: oral) Med Classific ation: Endocrine zileuton ER 600 mg tablet,exte nded release 12hr mphase 12-09 00:00: 00 Yes [id number] 2 tablet 2 TIMES DAILY 2 tablet 2 TIMES DAILY (route: oral) Med Classific ation: Respirato ry Therapy Agents vilazodone 20 mg tablet 2024-03 00:00: 00 Yes [id number] 1 tablet BEDTIME 1 tablet BEDTIME (route: oral) Med Classific ation: Central Nervous System Agents zolpidem 5 mg tablet 09-23 00:00: 00 Yes [id number] 1 tablet BEDTIME 1 tablet BEDTIME (route: oral) Med Classific ation: Central Nervous System Agents Immunizations Ordered Immunization Name Filled Immunization Name Date Status Comments Refusal Reason INFLUENZA, TIV (INACTIVATED) 2023-11-16 00:00:00 Vital Signs Vital Name Observation Time Observation Value Commen ts Temperature 2025-01-20 14:33:00.000 97.8 [degF] Temperature 2025-01-18 14:16:00.000 97.8 [degF] Temperature 2025-01-13 14:20:00.000 97.3 [degF] Temperature 2025-01-11 14:34:00.000 97.8 [degF] Temperature 2025-01-09 15:14:00.000 97.8 [degF] Temperature 2025-01-06 14:21:00.000 97.8 [degF] Temperature 2025-01-04 13:59:00.000 97.8 [degF] Temperature 2025-01-02 14:16:00.000 97.6 [degF] Temperature 2024-12-30 14:27:00.000 97.3 [degF] Temperature 2024-12-28 15:02:00.000 97.6 [degF] Temperature 2024-12-26 15:02:00.000 97.8 [degF] Temperature 2024-12-16 15:27:00.000 97.3 [degF] Temperature 2024-12-14 15:17:00.000 97.6 [degF] Temperature 2024-12-12 15:03:00.000 97.8 [degF] Temperature 2024-12-09 14:40:00.000 97.8 [degF] Temperature 2024-12-07 14:56:00.000 97.6 [degF] Temperature 2024-12-05 14:13:00.000 97.8 [degF] Temperature 2024-11-28 14:04:00.000 97.5 [degF] Temperature 2024-11-25 15:15:00.000 97.3 [degF] Temperature 2024-11-23 13:09:00.000 97.5 [degF] Pulse 2025-01-20 14:33:00.000 68 /min Pulse 2025-01-18 14:16:00.000 68 /min Pulse 2025-01-13 14:20:00.000 84 /min Pulse 2025-01-11 14:34:00.000 64 /min Pulse 2025-01-09 15:14:00.000 65 /min Pulse 2025-01-06 14:21:00.000 65 /min Pulse 2025-01-04 13:59:00.000 64 /min Pulse 2025-01-02 14:16:00.000 70 /min Pulse 2024-12-30 14:27:00.000 76 /min Pulse 2024-12-28 15:02:00.000 88 /min Pulse 2024-12-26 15:02:00.000 64 /min Pulse 2024-12-16 15:27:00.000 68 /min Pulse 2024-12-14 15:17:00.000 64 /min Pulse 2024-12-12 15:03:00.000 64 /min Pulse 2024-12-09 14:40:00.000 64 /min Pulse 2024-12-07 14:56:00.000 70 /min Pulse 2024-12-05 14:13:00.000 64 /min Pulse 2024-11-30 15:14:00.000 68 /min Pulse 2024-11-28 14:04:00.000 64 /min Pulse 2024-11-25 15:15:00.000 68 /min Pulse 2024-11-23 13:09:00.000 68 /min O2 Saturation (%) 2025-01-20 14:33:00.000 96 % O2 Saturation (%) 2025-01-18 14:17:00.000 98 % O2 Saturation (%) 2025-01-13 14:22:00.000 96 % O2 Saturation (%) 2025-01-11 14:34:00.000 98 % O2 Saturation (%) 2025-01-09 15:14:00.000 97 % O2 Saturation (%) 2025-01-06 14:22:00.000 98 % O2 Saturation (%) 2025-01-04 13:59:00.000 97 % O2 Saturation (%) 2025-01-02 14:18:00.000 96 % O2 Saturation (%) 2024-12-30 14:28:00.000 96 % O2 Saturation (%) 2024-12-28 15:02:00.000 96 % O2 Saturation (%) 2024-12-26 15:02:00.000 98 % O2 Saturation (%) 2024-12-16 15:28:00.000 97 % O2 Saturation (%) 2024-12-14 15:18:00.000 96 % O2 Saturation (%) 2024-12-09 14:50:00.000 98 % O2 Saturation (%) 2024-12-07 14:56:00.000 98 % O2 Saturation (%) 2024-12-05 14:14:00.000 96 % O2 Saturation (%) 2024-11-30 15:17:00.000 96 % O2 Saturation (%) 2024-11-28 14:04:00.000 96 % O2 Saturation (%) 2024-11-25 15:16:00.000 93 % O2 Saturation (%) 2024-11-23 13:11:00.000 96 % Respirations 2025-01-20 14:33:00.000 16 /min Respirations 2025-01-18 14:16:00.000 16 /min Respirations 2025-01-13 14:20:00.000 16 /min Respirations 2025-01-11 14:34:00.000 16 /min Respirations 2025-01-09 15:14:00.000 16 /min Respirations 2025-01-06 14:21:00.000 16 /min Respirations 2025-01-04 13:59:00.000 16 /min Respirations 2025-01-02 14:16:00.000 16 /min Respirations 2024-12-30 14:27:00.000 16 /min Respirations 2024-12-28 15:02:00.000 16 /min Respirations 2024-12-16 15:27:00.000 16 /min Respirations 2024-12-14 15:17:00.000 16 /min Respirations 2024-12-12 15:03:00.000 16 /min Respirations 2024-12-09 14:40:00.000 16 /min Respirations 2024-12-07 14:56:00.000 16 /min Respirations 2024-12-05 14:13:00.000 16 /min Respirations 2024-11-30 15:14:00.000 16 /min Respirations 2024-11-28 14:04:00.000 16 /min Respirations 2024-11-25 15:15:00.000 16 /min Respirations 2024-11-23 13:09:00.000 16 /min Systolic Blood Pressure 2025-01-20 14:33:00.000 122 mm [Hg] Systolic Blood Pressure 2025-01-18 14:16:00.000 118 mm [Hg] Systolic Blood Pressure 2025-01-13 14:20:00.000 122 mm [Hg] Systolic Blood Pressure 2025-01-11 14:34:00.000 120 mm [Hg] Systolic Blood Pressure 2025-01-09 15:14:00.000 100 mm [Hg] Systolic Blood Pressure 2025-01-06 14:21:00.000 120 mm [Hg] Systolic Blood Pressure 2025-01-04 13:59:00.000 100 mm [Hg] Systolic Blood Pressure 2025-01-02 14:16:00.000 100 mm [Hg] Systolic Blood Pressure 2024-12-30 14:27:00.000 100 mm [Hg] Systolic Blood Pressure 2024-12-28 15:02:00.000 120 mm [Hg] Systolic Blood Pressure 2024-12-26 15:02:00.000 110 mm [Hg] Systolic Blood Pressure 2024-12-16 15:27:00.000 128 mm [Hg] Systolic Blood Pressure 2024-12-14 15:17:00.000 110 mm [Hg] Systolic Blood Pressure 2024-12-12 15:03:00.000 120 mm [Hg] Systolic Blood Pressure 2024-12-09 14:40:00.000 100 mm [Hg] Systolic Blood Pressure 2024-12-07 14:56:00.000 112 mm [Hg] Systolic Blood Pressure 2024-12-05 14:13:00.000 120 mm [Hg] Systolic Blood Pressure 2024-11-30 15:14:00.000 112 mm [Hg] Systolic Blood Pressure 2024-11-28 14:04:00.000 100 mm [Hg] Systolic Blood Pressure 2024-11-25 15:15:00.000 118 mm [Hg] Systolic Blood Pressure 2024-11-23 13:09:00.000 110 mm [Hg] Diastolic Blood Pressure 2025-01-20 14:33:00.000 60 mm [Hg] Diastolic Blood Pressure 2025-01-18 14:16:00.000 60 mm [Hg] Diastolic Blood Pressure 2025-01-13 14:20:00.000 60 mm [Hg] Diastolic Blood Pressure 2025-01-11 14:34:00.000 60 mm [Hg] Diastolic Blood Pressure 2025-01-09 15:14:00.000 60 mm [Hg] Diastolic Blood Pressure 2025-01-06 14:21:00.000 67 mm [Hg] Diastolic Blood Pressure 2025-01-04 13:59:00.000 60 mm [Hg] Diastolic Blood Pressure 2025-01-02 14:16:00.000 60 mm [Hg] Diastolic Blood Pressure 2024-12-30 14:27:00.000 60 mm [Hg] Diastolic Blood Pressure 2024-12-28 15:02:00.000 60 mm [Hg] Diastolic Blood Pressure 2024-12-26 15:02:00.000 60 mm [Hg] Diastolic Blood Pressure 2024-12-16 15:27:00.000 70 mm [Hg] Diastolic Blood Pressure 2024-12-14 15:17:00.000 60 mm [Hg] Diastolic Blood Pressure 2024-12-12 15:03:00.000 60 mm [Hg] Diastolic Blood Pressure 2024-12-09 14:40:00.000 60 mm [Hg] Diastolic Blood Pressure 2024-12-07 14:56:00.000 60 mm [Hg] Diastolic Blood Pressure 2024-12-05 14:13:00.000 60 mm [Hg] Diastolic Blood Pressure 2024-11-30 15:14:00.000 60 mm [Hg] Diastolic Blood Pressure 2024-11-28 14:04:00.000 60 mm [Hg] Diastolic Blood Pressure 2024-11-25 15:15:00.000 60 mm [Hg] Diastolic Blood Pressure 2024-11-23 13:09:00.000 60 mm [Hg] Plan of Treatment Planned [...] AWARENESS FOR SAFETY AND WILL NOTIFY CLINICAL INFORMATION DELIVERY ANALYST AND PHYSICIAN/PROVIDER WITH ANY CHANGE IN CONDITION. [code = SKILLED NURSE WILL MAINTAIN SITUATIONAL AWARENESS FOR SAFETY AND WILL NOTIFY CLINICAL INFORMATION DELIVERY ANALYST AND PHYSICIAN/PROVIDER WITH ANY CHANGE IN CONDITION.] Future Scheduled Test SKILLED NU RSE FOR O/A AND SKILLED TEACHING RELATED TO SIGNS AND SYMPTOMS AND MANAGEMENT OF SPECIFY MUSCULOSKELETAL DISEASE [code = SKILLED NURSE FOR O/A AND SKILLED TEACHING RELATED TO SIGNS AND SYMPTOMS AND MANAGEMENT OF SPECIFY MUSCULOSKELETAL DISEASE] Future Scheduled Test SKILLED NU RSE TO O/A OF PATIENTS MENTAL/BEHAVIORAL STATUS, ASSESS VITAL SIGNS EACH VISIT ALLOW 2 PRNS FOR MEDICATION MANAGEMENT. [code = SKILLED NURSE TO O/A OF PATIENTS MENTAL/BEHAVIORAL STATUS, ASSESS VITAL SIGNS EACH VISIT ALLOW 2 PRNS FOR MEDICATION MANAGEMENT.] Future Scheduled Test SKILLED NU RSE TO ASSESS PATIENT'S SKIN INTEGRITY AND INSTRUCT PATIENT/CAREGIVER ON MEASURES TO PREVENT PRESSURE ULCERS. [code = SKILLED NURSE TO ASSESS PATIENT'S SKIN INTEGRITY AND INSTRUCT PATIENT/CAREGIVER ON MEASURES TO PREVENT PRESSURE ULCERS.] Future Scheduled Test SKILLED NU RSE TO [...] USE.] Future Scheduled Test SKILLED NU RSE FOR O/A OF GENERAL HEALTH STATUS OF PAIN, CARDIAC, RESPIRATORY, GASTROINTESTINAL, GENITOURINARY, SKIN, NEUROLOGIC, ENDOCRINE SYSTEMS TO IDENTIFY CHANGES ASSOCIATED WITH EXACERBATION FOR EARLY INTERVENTION OF COMPLICATIONS ESCH VISUAL [code = SKILLED NURSE FOR O/A OF GENERAL HEALTH STATUS OF PAIN, CARDIAC, RESPIRATORY, GASTROINTESTINAL, GENITOURINARY, SKIN, NEUROLOGIC, ENDOCRINE SYSTEMS TO IDENTIFY CHANGES ASSOCIATED WITH EXACERBATION FOR EARLY INTERVENTION OF COMPLICATIONS ESCH VISUAL ] Future Scheduled Test SKILLED NU RSE TO ASSESS HIGH RISK PATIENT FOR CHANGE IN CONDITION: MOOD/BEHAVIOR, MISSED MEDICATIONS, CHANGE IN LIVING SITUATION, HOMICIDAL IDEATION, ACTIVE SUBSTANCE USE WITH MOOD ALTERING SUBSTANCES INCLUDING BUT NOT LIMITED TO COCAINE, CRACK, HEROIN, FENTANYL AND ENSURE EARLY IDENTIFICATION TO MAINTAIN SAFETY. SKILLED NURSE WILL MAINTAIN SITUATIONAL AWARENESS FOR SAFETY AND WILL NOTIFY CLINICAL INFORMATION DELIVERY ANALYST AND PHYSICIAN/PROVIDER WITH ANY CHANGE IN CONDITION. [code = SKILLED NURSE TO ASSESS HIGH RISK PATIENT FOR CHANGE IN CONDITION: MOOD/BEHAVIOR, MISSED MEDICATIONS, CHANGE IN LIVING SITUATION, HOMICIDAL IDEATION, ACTIVE SUBSTANCE USE WITH MOOD ALTERING SUBSTANCES INCLUDING BUT NOT LIMITED TO COCAINE, CRACK, HEROIN, FENTANYL AND ENSURE EARLY IDENTIFICATION TO MAINTAIN SAFETY. SKILLED NURSE WILL MAINTAIN SITUATIONAL AWARENESS FOR SAFETY AND WILL NOTIFY CLINICAL INFORMATION DELIVERY ANALYST AND PHYSICIAN/PROVIDER WITH ANY CHANGE IN CONDITION.] [...] Future Scheduled Test SKILLED NU RSE TO ADMINISTER MEDICATIONS 3 X WEEK AND PRE-POUR MEDICATIONS 3 X WEEK PER MEDICATION LIST. [code = SKILLED NURSE TO ADMINISTER MEDICATIONS 3 X WEEK AND PRE-POUR MEDICATIONS 3 X WEEK PER MEDICATION LIST.] Future Scheduled Test SKILLED NU RSE TO PRE-POUR MEDICATION PER MEDICATION LIST MED MINDER [code = SKILLED NURSE TO PRE-POUR MEDICATION PER MEDICATION LIST MED MINDER] Future Scheduled Test SKILLED NU RSE FOR ADMINISTRATION AND TEACHING OF PRESCRIBED INJECTION THERAPY FOR DUPIXENT 300 MG/2 ML SUBCUTANEOUS PEN INJECTOR2 ML, EVERY OTHER WEEK [code = SKILLED NURSE FOR ADMINISTRATION AND TEACHING OF PRESCRIBED INJECTION THERAPY FOR DUPIXENT 300 MG/2 ML SUBCUTANEOUS PEN INJECTOR2 ML, EVERY OTHER WEEK] Future Scheduled Test SKILLED NU RSE FOR [...] Test SKILLED NU RSE FOR O/A OF NEUROCOGNITIVE AND BEHAVIORAL STATUS [code = SKILLED NURSE FOR O/A OF NEUROCOGNITIVE AND BEHAVIORAL STATUS] Future Scheduled Test SKILLED NU RSE TO ASSESS PATIENT S PSYCHOSOCIAL STATUS TO IDENTIFY POTENTIAL ISSUES THAT MAY COMPLICATE THE PROVISION OF THE PLAN OF CARE INCLUDING THE PATIENT S ABILITY TO ACCESS COMMUNITY RESOURCES AND PSYCHOSOCIAL SUPPORT SERVICES. [code = SKILLED NURSE TO ASSESS PATIENT S PSYCHOSOCIAL STATUS TO IDENTIFY POTENTIAL ISSUES THAT MAY COMPLICATE THE PROVISION OF THE PLAN OF CARE INCLUDING THE PATIENT S ABILITY TO ACCESS COMMUNITY RESOURCES AND PSYCHOSOCIAL SUPPORT SERVICES.] Future Scheduled Test SKILLED NU RSE FOR O/A OF CLIENT'S SLEEP PATTERNS. MAY TEACH INTERVENTIONS R/T ACQUIRING IMPROVED REST [code = SKILLED NURSE FOR O/A OF CLIENT'S SLEEP PATTERNS. MAY TEACH INTERVENTIONS R/T ACQUIRING IMPROVED REST] Future Scheduled Test MEDICATION S WILL BE HELD AND STORED IN LOCKBOX [code = MEDICATIONS WILL BE HELD AND STORED IN LOCKBOX] Future Scheduled Test SKILLED NU RSE MAY PICKUP AND TRANSPORT MEDICATIONS [code = SKILLED NURSE MAY PICKUP AND TRANSPORT MEDICATIONS] Goal 2024-11-18 Patient Goal - T O STAY OUT OF THE HOSPITAL TO ATTEND ALL SCHEDULED MD APPOINTMENTS Goal Patient Goal - T O STAY OUT OF THE HOSPITAL TO ATTEND ALL SCHEDULED MD APPOINTMENTS Goal 2025-01-16 Patient Goal - T O STAY OUT OF THE HOSPITAL TO ATTEND ALL SCHEDULED MD APPOINTMENTS Goal Provider Goal - A PLAN OF CARE WILL BE ESTABLISHED THAT MEETS PATIENT'S MCC NEEDS AND INCLUDES PATIENT GOAL FOR HOME HEALTH. Goal Provider Goal - PATIENT WILL REMAIN SAFE IN THE COMMUNITY AND WILL BE FREE OF DANGER TO SELF AND OTHERS THROUGHOUT THE CERTIFICATION PERIOD. Goal Provider Goal - PATIENT/CAREGIVER WILL VERBALIZE UNDERSTANDING MUSCULOSKELETAL DISEASE INCLUDING SIGNS AND SYMPTOMS, MANAGEMENT, AND PRESCRIBED TREATMENT REGIMEN BY END OF EPISODE. Goal Provider Goal - ALTERED MENTAL/BEHAVIORAL STATUS WILL BE IDENTIFIED PROMPTLY AND INTERVENTION INITIATED QUICKLY TO MINIMIZE ASSOCIATED RISKS THROUGHOUT CERTIFICATION PERIOD. Goal Provider Goal - PATIENT/CAREGIVER WILL VERBALIZE UNDERSTANDING OF PRESSURE ULCER PREVENTION BY END OF THE EPISODE. Goal Provider Goal - PATIENT/CAREGIVER WILL VERBALIZE/DEMONSTRATE EFFECTIVE HOME SAFETY AND FALL PREVENTION STRATEGIES THROUGHOUT CERTIFICATION PERIOD. Goal Provider Goal - PATIENT WILL HAVE SUPPORT MEASURES ESTABLISHED TO PREVENT HOSPITALIZATION AND ED USE AND PATIENT/CAREGIVER WILL VERBALIZE/DEMONSTRATE METHODS TO REDUCE AVOIDABLE HOSPITALIZATION AND ED USE BY END OF EPISODE. Goal Provider Goal - CHANGE IN GENERAL HEALTH STATUS WILL BE IDENTIFIED AND REPORTED TO PHYSICIAN FOR PROMPT INTERVENTION TO MINIMIZE ASSOCIATED RISKS THROUGHOUT CERTIFICATION PERIOD. Goal Provider Goal - HIGH SAFETY RISK PATIENT WILL REMAIN SAFE IN THE COMMUNITY AND WILL BE FREE FROM DANGER TO SELF AND OTHERS THROUGHOUT CERTIFICATION PERIOD. Goal Provider Goal - PATIENT/CAREGIVER WILL VERBALIZE UNDERSTANDING OF EDUCATION PROVIDED ON MEDICATIONS BY THE END OF THE CERTIFICATION PERIOD. Goal Provider Goal - PATIENT WILL COMPLY WITH MEDICATION WHEN SKILLED NURSE ADMINISTERS AND PRE-POURS MEDICATION THROUGHOUT CERTIFICATION PERIOD. Goal Provider Goal - PATIENT WILL COMPLY WITH MEDICATION WHEN SKILLED NURSE PRE-POURS MEDICATION THROUGHOUT CERTIFICATION PERIOD. Goal Provider Goal - PATIENT WILL RECEIVE DUPIXENT 300 MG SQ EVERY 2 WEEKS ORDERED. /DEMONSTRATE KNOWLEDGE OF INJECTION THERAPY BY THE END OF THE CERTIFICATION PERIOD. Goal Provider Goal - PATIENT WILL REMAIN SAFE WITHOUT DECOMPENSATION IN DEPRESSIVE CONDITION, WHILE MAINTAINING OPTIMAL LEVEL OF MENTAL HEALTH AND WELL BEING THROUGHOUT CERTIFICATION PERIOD. Goal Provider Goal - PATIENT WILL BE ABLE TO PERFORM DAILY FUNCTIONS AND MAINTAIN OPTIMAL BEHAVIORAL/NEUROCOGNITIVE STATUS THROUGHOUT CERTIFICATION PERIOD. Goal Provider Goal - PSYCHOSOCIAL NEEDS WILL BE IDENTIFIED AND PLAN IMPLEMENTED TO MINIMIZE RISK THROUGHOUT CERTIFICATION PERIOD. Goal Provider Goal - PATIENT WILL REPORT AT LEAST 6-8 HOURS A NIGHT, RESTFUL SLEEP PATTERNS ACHIEVED USING THERAPEUTIC INTERVENTIONS BEFORE THE END OF THE CERTIFICATION PERIOD. Goal Provider Goal - MEDICATION WILL BE STORED IN LOCKBOX FOR SAFETY. Goal Provider Goal - SKILLED NURSE PICKED UP AND TRANSPORTED MEDICATIONS FOR SAFETY. Encounters Start Date/Time End Date/Time Encounter Type Admission Type Attending [facility] Care Department Encounter ID Discharge Date Discharge Status Discharge Condition Discharge Reason Percent Goals Met 2024-11-22 00:00:00 2025-01-20 00:00:00 Outpatient RECERTIFIC [facility] [id number]
--- OUTSIDE RECORDS SUMMARY | 2025-01-24 11:14 | XMS_ITS | Clinical Summary ---
[facility] Organization [facility] Address [address] [place] [address] Care Team Providers Care Manager Purchasing Name Role Phone Simone De La Cruz DO Primary Care Provider [phone] Social History Tobacco Use Types Packs/Day Years [...] Depression Screening 03/16/2024 COVID-19 Vaccine (1 - 2024-2 6 season) 2024 Influenza Vaccine (#1) 2024 RSV [...] age to complete this topic Care Teams Manager Purchasing Relationship Specialty Start Date End Date Simone De La Cruz DO PCP - General 01/04/15
== END ==
LOC: HO.SL 09:52
PROVIDERS: Visit Provider Nurse Practitioner Family
DX: G47.33 Obstructive sleep apnea (adult) (pediatric) (principal); R06.83 Snoring; G47.19 Other hypersomnia
CPT/HCPCS: 95806

== ENCOUNTER → 2025-01-24 10:04 | Outpatient (BNV) | payer MEDICARE, SELFPAY | PROVIDERS: Visit Provider Psychiatry & Neurology Neurology | DX: R06.83 Snoring (principal) | CPT/HCPCS: 95806 ==